=== PATIENT | female | born 1960 | race Caucasian/White ===

== ENCOUNTER 2017-03-18 15:48 | Emergency (ER) | payer OTHER ==
[~2017-03-18] VITALS: Ht 175.3 cm; Wt 70.0 kg
[~2017-03-18 15:48] MED LIST: BUPR-79 PO; BUPR8MIS; BUPR8MIS SL; GABA-113 PO
[2017-03-18 15:51] VITALS: TEMP 36.8; Ht 175.3 cm; Wt 70.0 kg
[2017-03-18] MEDS ORDERED: KETOROLAC TROMETHAMINE 30 MG/ML VIAL IV STA (16:21)
[2017-03-18 16:46] LABS: BASO % 0.1 %; BASO ABS # 0.01 K/uL (0-0.2); COMPLETE YES; EOS % 0.5 %; IG% 0.2 %; LYMPH % 18.2 %; LYMPH ABS # 1.57 K/uL (1.2-3.4); MEAN CELL VOLUME 86.7 fL (80-100); MEAN CORPUSCULAR HEMOGLOBIN 29.8 pg (25-34); MEAN CORPUSCULAR HGB CONC 34.4 g/dl (32-36); MEAN PLATELET VOLUME 8.4 fL (7.4-10.4); MONO % 5.9 %; NEUT % 75.1 %; PLATELET COUNT 227 K/uL (130-400); WHITE BLOOD COUNT 8.65 K/uL (4.8-10.8)
[2017-03-18 17:02] LABS: BUN/CREATININE RATIO 23.6 (10-20); CALCIUM 8.6 mg/dl (8.5-10.1); CREATININE 0.56 mg/dl (0.60-1.20); POTASSIUM 3.6 mmol/L (3.5-5.1)
[2017-03-18 17:12] LABS: INR 0.9 (0.9-1.1); PROTHROMBIN TIME (PATIENT) 10.1 SECONDS (9.0-12.0)
--- NOTE | 2017-03-18 17:21 | DIAGNOSTIC IMAGING REPORT ---
CHEST 2 VIEWS ROUTINE CLINICAL HISTORY: Atypical chest pain COMPARISON STUDY: 08/13/2006 FINDINGS: The heart is mildly enlarged. There is no failure. There is no lobar consolidation. Increased basal markings are likely atelectatic. There is no significant pleural fluid.[ IMPRESSION: 1. Mild cardiomegaly 2. Bibasilar opacities likely atelectatic Electronically signed by: Bk Khanna M.D. 03/18/2017 5:20 PM Dictated Date/Time: 03/18/2017 5:19 PM
[2017-03-18 17:32] LABS: POINT OF CARE TROPONIN I < 0.030 ng/ml (0-0.045)
[2017-03-18 17:33] VITALS: O2SAT 97
[2017-03-18] MEDS ORDERED: AZITHROMYCIN 250 MG TAB PO STA (17:48)
[2017-03-18] MEDS ORDERED: AZIT250T PO (17:50)
[2017-03-18 18:25] VITALS: BP 130/77; PULSE 56; O2SAT 98
--- NOTE | 2017-03-18 21:27 | EMERGENCY ROOM VISIT NOTE ---
History Report prepared by Christiane: Samantha Schultz Under the Supervision of: Dr. Hussain Perea M.D. First contact with patient: 16:13 Chief Complaint: CHEST PAIN Stated Complaint: CHEST PAIN History of Present Illness The patient is a 56 year old female who presents to the Emergency Room with complaints of worsening chest pain beginning this morning at 0700. She states that laying flat exacerbates the pain and that her pain also radiates to her shoulders. She describes the pain as being sharp. The patient also reports feeling shortness of breath and that she has had a productive cough with white mucous for a week now. She states that deep breaths and certain positions make her pain worse as well. She denies having a fever. The patient reports that she has had ECG's and CT scans done, but she does not know if she ever had a stress test done. The patient reports that she has had this intermittent pain over the last 5 to 10 years. The patient reports that she smokes a pack of cigarettes per day. She denies a history of hypertension, but states that her father may have had hypertension. She denies a family history of heart disease. Source of History: patient Onset: 0700 this morning Position: chest Quality: sharp Timing: worsening Modifying Factors (Worsening): breathing, movement, other (laying flat ) Associated Symptoms: + cough (productive with white mucous ), + SOB, No fevers Review of Systems See HPI for pertinent positives & negatives. A total of 10 systems reviewed and were otherwise negative. Past Medical & Surgical Medical Problems: (1) ADV EFF HEROIN (2) DRUG WITHDRAWAL (3) Herniation of nucleus pulposus (4) LUMB/LUMBOSAC DISC DEGEN Family History FH: hypertension Social History Smoking Status: Current Every Day Smoker Alcohol Use: none Marital Status: Occupation Status: unemployed Current/Historical Medications Scheduled Azithromycin (Zithromax), 250 MG PO DAILY Buprenorphine Hcl-Naloxone Hcl (Suboxone 8-2 Mg), 8 MG SL BID Gabapentin (Neurontin), 300 MG PO TID Allergies Coded Allergies: No Known Allergies (Unverified , 03/18/17) Physical Exam Vital Signs Date Time Temp Pulse Resp B/P (MAP) Pulse Ox O2 Delivery O2 Flow Rate FiO2 03/18/17 18:25 56 14 130/77 98 Room Air 03/18/17 17:35 54 03/18/17 17:33 54 16 101/87 97 Room Air 03/18/17 17:33 97 Room Air 03/18/17 17:15 94 Room Air 03/18/17 15:51 36.8 76 18 166/116 96 Room Air Physical Exam Constitutional: Vital signs reviewed. Eyes: Pupils are equal round reactive to light. Conjunctiva are noninjected. ENT: Pharynx is clear without erythema or exudate. Mucous membranes are moist. Neck supple without meningeal signs. Respiratory: Clear to auscultation bilaterally. Breath sounds are equal bilaterally. Cardiovascular: Regular rate and rhythm. No rubs or gallops. GI: Soft, nondistended and nontender. Bowel sounds are present. Musculoskeletal: No peripheral edema. No lower extremity tenderness. Integumentary: No cyanosis. Neurological: The patient is awake and alert. No focal deficits. Psychiatric: Normal affect. Medical Decision & Procedures ER Provider Diagnostic Interpretation: Radiology results as stated below per my review and the radiologist's interpretation: CHEST 2 VIEWS ROUTINE CLINICAL HISTORY: Atypical chest pain COMPARISON STUDY: 08/13/2006 FINDINGS: The heart is mildly enlarged. There is no failure. There is no lobar consolidation. Increased basal markings are likely atelectatic. There is no significant pleural fluid.[ IMPRESSION: 1. Mild cardiomegaly 2. Bibasilar opacities likely atelectatic Electronically signed by: kB Khanna M.D. 03/18/2017 5:20 PM Dictated Date/Time: 03/18/2017 5:19 PM Laboratory Results 03/18/17 16:29 Red Blood Count 4.50, Mean Corpuscular Volume 86.7, Mean Corpuscular Hemoglobin 29.8, Mean Corpuscular Hemoglobin Concent 34.4, Mean Platelet Volume 8.4, Neutrophils (%) (Auto) 75.1, Lymphocytes (%) (Auto) 18.2, Monocytes (%) (Auto) 5.9, Eosinophils (%) (Auto) 0.5, Basophils (%) (Auto) 0.1, Neutrophils # (Auto) 6.50, Lymphocytes # (Auto) 1.57, Monocytes # (Auto) 0.51, Eosinophils # (Auto) 0.04, Basophils # (Auto) 0.01 03/18/17 16:29 Test 03/18/17 16:29 03/18/17 17:14 White Blood Count 8.65 K/uL (4.8-10.8) Red Blood Count 4.50 M/uL (4.2-5.4) Hemoglobin 13.4 g/dL (12.0-16.0) Hematocrit 39.0 % (37-47) Mean Corpuscular Volume 86.7 fL (80-100) Mean Corpuscular Hemoglobin 29.8 pg (25-34) Mean Corpuscular Hemoglobin Concent 34.4 g/dl (32-36) Platelet Count 227 K/uL (130-400) Mean Platelet Volume 8.4 fL (7.4-10.4) Neutrophils (%) (Auto) 75.1 % Lymphocytes (%) (Auto) 18.2 % Monocytes (%) (Auto) 5.9 % Eosinophils (%) (Auto) 0.5 % Basophils (%) (Auto) 0.1 % Neutrophils # (Auto) 6.50 K/uL (1.4-6.5) Lymphocytes # (Auto) 1.57 K/uL (1.2-3.4) Monocytes # (Auto) 0.51 K/uL (0.11-0.59) Eosinophils # (Auto) 0.04 K/uL (0-0.5) Basophils # (Auto) 0.01 K/uL (0-0.2) RDW Standard Deviation 41.9 fL (36.4-46.3) RDW Coefficient of Variation 13.1 % (11.5-14.5) Immature Granulocyte % (Auto) 0.2 % Immature Granulocyte # (Auto) 0.02 K/uL (0.00-0.02) Prothrombin Time 10.1 SECONDS (9.0-12.0) Prothromb Time International Ratio 0.9 (0.9-1.1) Activated Partial Thromboplast Time 26.8 SECONDS (21.0-31.0) Partial Thromboplastin Ratio 1.0 Anion Gap 4.0 mmol/L (3-11) Est Creatinine Clear Calc Drug Dose 117.3 ml/min Estimated GFR () 120.8 Estimated GFR (Non- 104.2 BUN/Creatinine Ratio 23.6 (10-20) Calcium Level 8.6 mg/dl (8.5-10.1) Bedside D-Dimer 344 ng/mlFEU (0-450) Bedside Troponin I < 0.030 ng/ml (0-0.045) Laboratory results as reviewed by me. Medications Administered Medications (Trade) Dose Ordered Sig/Mk Route Start Time Stop Time Status Last Admin Dose Admin Ketorolac Tromethamine (Toradol Inj) 10 mg NOW STAT IV 03/18/17 16:21 03/18/17 16:24 DC 03/18/17 17:32 10 MG Azithromycin (Zithromax Tab) 500 mg NOW STAT PO 03/18/17 17:48 03/18/17 17:49 DC 03/18/17 18:27 500 MG ECG Indication: chest pain Rate (beats per minute): 68 Rhythm: normal sinus Findings: no acute ischemic change, no ectopy ED Course 161: The patient was evaluated in room C6. A complete history and physical exam was performed. 162: Ordered Toradol Inj 10 mg IV. 1745: The patient says she feels better. I discussed the test results with her. She will be treated with antibiotics because of her smoking history and cough. 1748: Ordered Azithromycin 500 mg PO. 1750: Upon reevaluation, the patient appeared to have improvement of her symptoms. I discussed tonight's findings with her. She verbalized agreement of the treatment plan. She was discharged home. Medical Decision This is a 56-year-old female who presents with chest pain. Differential diagnosis includes pleurisy, bronchitis, pneumonia, pulmonary embolism, pericarditis, UT. I did perform a limited focused review of portions of the patient's old chart on the electronic medical record. The patient has had no recent pertinent visits to this hospital. I did evaluate the patient as noted above. Patient is presenting with continual chest pain since 7 AM. She describes it as sharp and worse when she moves or takes deep breaths. It is also worse when she lies back. She has been sick for the past week with a productive cough as well. She is a heavy smoker. IV access was established. 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 I did treat her with Toradol 10 mg IV. I did order and personally review the patient's 12-lead EKG and chest x-ray as described above. Her twelve-lead EKG does not demonstrate any acute ischemic changes. Her chest x-ray did show some bibasilar infiltrates which could be atelectasis versus pneumonia. Given her history of productive cough and pleuritic chest pain I did feel it was worthwhile to treat her. I did treat her with Zithromax. I did order and review the patient's blood work as noted in the electronic medical record. D-dimer and troponin are both negative. I did discuss the test results with the patient. On reevaluation she is feeling better. I did recommend close follow up with her doctor. She was discharged with a prescription for Zithromax and given return instructions as outlined below. Medication Reconcilliation Current Medication List: was personally reviewed by me Blood Pressure Screening Patient's blood pressure: Elevated blood pressure Blood pressure disposition: Referred to PCP Impression Primary Impression: Pneumonia of both lower lobes Additional Impression: Acute chest pain Scribe Attestation The scribe's documentation has been prepared under my direct and personally reviewed by me in its entirety. I confirm that the note above accurately reflects all work, treatment, procedures, and medical decision making performed by me. Departure Information Dispostion Home / Self-Care Prescriptions Azithromycin (Zithromax) 250 Mg Tab 250 MG PO DAILY, #4 TAB Prov: Hussain Perea M.D. 03/18/17 Referrals Ahsan Willson M.D. (PCP) Forms Call Back Authorization, HOME CARE DOCUMENTATION FORM, IMPORTANT VISIT INFORMATION Patient Instructions ED Chest Pain Atypical Unkn Cause, ED Pneumonia Adult, My [facility] Additional Instructions You have been examined and treated today on an emergency basis only. This is not a substitute for, or an effort to provide, complete comprehensive medical care. It is impossible to recognize and treat all injuries or illnesses in a single emergency department visit. It is therefore important that you follow up closely with your physician. Call as soon as possible for an appointment. Return for worsening symptoms or if you develop fever, vomiting, or any other concerning symptoms. Problem Qualifiers Primary Impression: Pneumonia of both lower lobes Pneumonia type: due to unspecified organism Qualified Codes: J18.9 - Pneumonia, unspecified organism
== END 2017-03-18 18:46 | disposition home or self-care (01) ==
LOC: C.EDB 15:49 → C.EDC 18:46
DX: J18.9 Pneumonia, unspecified organism (principal); R07.9 Chest pain, unspecified; F17.200 Nicotine dependence, unspecified, uncomplicated

== ENCOUNTER 2019-04-17 01:12 | Observation (INO) ==
[2019-04-17] MEDS ORDERED: ONDANSETRON INJ 2 MG/ML 2 ML VIAL IV STA (01:28)
[2019-04-17] MEDS ORDERED: MoRPHine SULFATE 4 MG/ML 1 ML CARP\\VIAL IV STA (01:28)
[2019-04-17] MEDS ORDERED: SODIUM CHLORIDE 0.9% 1000ML 1,000 ML IV SCH (01:30)
[2019-04-17 01:41] LABS: Basophils # (auto) 0.04 K/uL (0-0.2); Basophils % (auto) 0.3 %; Eosinophils # (auto) 0.27 K/uL (0-0.5); Eosinophils % (auto) 2.2 %; Hematocrit (blood only) 44.3 % (37-47); Hemoglobin 15.4 g/dL (12.0-16.0); Immature Granulocytes # (auto) 0.02 K/uL (0.00-0.02); Immature Granulocytes % (auto) 0.2 %; Lymphocytes # (auto) 4.34 K/uL (1.2-3.4); Lymphocytes % (auto) 35.1 %; Mean Corpuscular Hemoglobin 30.9 pg (25-34); Mean Corpuscular Hgb Conc 34.8 g/dL (32-36); Mean Corpuscular Volume 88.8 fL (80-100); Mean Platelet Volume 8.3 fL (7.4-10.4); Monocytes # (auto) 0.55 K/uL (0.11-0.59); Monocytes % (auto) 4.4 %; Neutrophils # (auto) 7.15 K/uL (1.4-6.5); Neutrophils % (auto) 57.8 %; Platelet Count 299 K/uL (130-400); RDW Coefficient of Variation 12.9 % (11.5-14.5); RDW Standard Deviation 41.7 fL (36.4-46.3); Red Blood Count 4.99 M/uL (4.2-5.4); White Blood Count 12.37 K/uL (4.8-10.8)
[2019-04-17 02:01] LABS: Alanine Aminotransferase 23 U/L (12-78); Albumin Level 4.3 gm/dl (3.4-5.0); Aspartate Aminotransferase 13 U/L (15-37); Blood Urea Nitrogen 15 mg/dl (7-18); Calcium 9.5 mg/dl (8.5-10.1); Carbon Dioxide 32 mmol/L (21-32); Chloride 101 mmol/L (98-107); Creatinine Clr Calc Pharmacy 81.4 ml/min; Est GFR (African American) 100.2; Est GFR (Non-African American) 86.5; Glucose 109 mg/dl (70-99); Lipase 84 U/L (73-393); Potassium 3.3 mmol/L (3.5-5.1); Sodium 137 mmol/L (136-145)
[2019-04-17 02:06] LABS: Alkaline Phosphatase 134 U/L (45-117); Bilirubin,Total 0.3 mg/dl (0.2-1); Globulin 4.3 gm/dl (2.5-4.0); Total Protein 8.6 gm/dl (6.4-8.2); Troponin I < 0.015 ng/ml (0-0.045)
[2019-04-17] MEDS ORDERED: ONDANSETRON HOME PACK 4MG OD TAB PO ONE (02:52)
[2019-04-17] MEDS ORDERED: PANTOprazole 40 MG TAB PO STA (02:52)
[2019-04-17] MEDS ORDERED: NICOTINE 21 MG/24 HR TDSY TD STA (03:19)
--- NOTE | 2019-04-17 03:40 | Emergency Department Note ---
History of Present Illness General Chief complaint: Chest Pain Stated complaint: CHEST PAINS History of Present Illness Maximum Pain Intensity: 6 This 58-year-old presents to the ER complaining of right upper quadrant pain Location: Right upper quadrant Quality: Achy Severity: Severe Duration: Tonight Timing: Started around 9 PM Context: Symptoms got worse and patient came in Modifying factors: better with nothing; worse with palpation Patient states she said intermittent symptoms in the past. This is severe tonight. She had sausage for dinner. Patient denies back pain, dyspnea, vomiting, diarrhea. Home Medications Home Medications Medication Instructions Recorded Confirmed Type buprenorphine-naloxone [Suboxone] 1 film SUBLINGUAL TID 04/17/19 04/17/19 History gabapentin 900 mg PO BID 04/17/19 04/17/19 History meloxicam 15 mg PO DAILY 04/17/19 04/17/19 History Allergies Allergy/AdvReac Type Severity Reaction Status Date / Time No Known Allergies Allergy Unverified 04/17/19 01:36 Past Med/Surg History Medical History Chronic pain Social History Preferred Language: Portuguese Feels Safe at Home: Yes Smoking Status: Current every day smoker Review of Systems All systems reviewed & are unremarkable except as noted in HPI & below Physical Exam Vital Signs Vital Signs - 24 hr 04/17/19 01:19 04/17/19 01:31 04/17/19 01:33 Temperature 36.7 C Temperature Source Oral Pulse Rate 70 Pulse Rate [Apical] Respiratory Rate 28 H Blood Pressure 199/101 H Blood Pressure [Left Arm] Blood Pressure Mean 133 Blood Pressure Mean [Left Arm] Blood Pressure Position Sitting Blood Pressure Position [Left Arm] Pulse Oximetry 98 99 98 Oxygen Delivery Method Room Air Room Air Room Air Sepsis Recent Fever Within 48 Hours No Sepsis New/Unexplained Change in Mental Status No Sepsis Action Taken by Nursing No Action Required 04/17/19 02:07 04/17/19 03:27 Temperature Temperature Source Pulse Rate Pulse Rate [Apical] 75 73 Respiratory Rate 20 18 Blood Pressure Blood Pressure [Left Arm] 164/100 H 142/87 H Blood Pressure Mean Blood Pressure Mean [Left Arm] 121 105 Blood Pressure Position Blood Pressure Position [Left Arm] Sitting Pulse Oximetry 96 97 Oxygen Delivery Method Room Air Room Air Sepsis Recent Fever Within 48 Hours Sepsis New/Unexplained Change in Mental Status Sepsis Action Taken by Nursing VITALS: Vitals are noted on the nurse's note and reviewed by myself. Vital signs stable. GENERAL: White female screaming in pain, in no acute distress, nondiaphoretic, well-developed well-nourished. SKIN: Capillary reflex less than 2 seconds. HEENT: Normocephalic. PERRLA. EOMI. Nares patent. Mucous membranes moist. Neck is supple without nuchal rigidity. HEART: Regular rate and rhythm LUNGS: Clear to auscultation bilaterally without wheezes, rales or rhonchi. No retractions or accessory muscle use. ABDOMEN: Positive bowel sounds x 4. Normal tympanic percussion. Soft, tender to palpation right upper quadrant, without masses or organomegaly. Canela sign positive. No guarding or rebound tenderness. No CVA tenderness MUSCULOSKELETAL: No gross musculoskeletal defects. NEURO: Patient was alert and oriented to person place and time. Normal sensation to light and sharp touch. No focal neurological deficits. Course Administered Medications Discontinued Medications Sodium Chloride (Nss 1000ml) 1,000 mls @ 999 mls/hr IV .[id number] RAYMOND Stop: 04/17/19 02:30 Last Infusion: 04/17/19 02:36 Dose: 0 mls/hr Documented by: [id number] Admin: 04/17/19 01:35 Dose: 999 mls/hr Documented by: [id number] Morphine Sulfate (Morphine Sulfate) 4 mg IV NOW STA Stop: 04/17/19 01:29 Last Admin: 04/17/19 01:36 Dose: 4 mg Documented by: [id number] Nicotine (Nicoderm Cq) 21 mg TD NOW STA Stop: 04/17/19 03:20 Last Admin: 04/17/19 03:25 Dose: 21 mg Documented by: [id number] Ondansetron HCl (Zofran) 4 mg IV NOW STA Stop: 04/17/19 01:29 Last Admin: 04/17/19 01:35 Dose: 4 mg Documented by: [id number] Ondansetron HCl (Zofran Odt 4mg Home Pack) 1 homepack PO NOW ONE Stop: 04/17/19 02:53 Last Admin: 04/17/19 02:56 Dose: Not Given Documented by: [id number] Pantoprazole Sodium (Protonix) 40 mg PO NOW STA Stop: 04/17/19 02:53 Last Admin: 04/17/19 02:56 Dose: Not Given Documented by: [id number] Medical Decision Making Medical Records Attestation: I reviewed the patient's medical records. Home Medications Current Medication List: was personally reviewed by me Laboratory Data Attestation: I reviewed the patient's lab results. Result diagrams: 04/17/19 01:24 04/17/19 01:24 Lab Results 04/17/19 04/17/19 04/17/19 Range/Units 01:24 01:24 01:29 WBC 12.37 H (4.8-10.8) K/uL RBC 4.99 (4.2-5.4) M/uL Hgb 15.4 (12.0-16.0) g/dL Hct 44.3 (37-47) % MCV 88.8 (80-100) fL MCH 30.9 (25-34) pg MCHC 34.8 (32-36) g/dL RDW Std Deviation 41.7 (36.4-46.3) fL RDW Coeff of Hayley 12.9 (11.5-14.5) % Plt Count 299 (130-400) K/uL MPV 8.3 (7.4-10.4) fL Immature Gran % (Auto) 0.2 % Neut % (Auto) 57.8 % Lymph % (Auto) 35.1 % [place] % (Auto) 4.4 % Eos % (Auto) 2.2 % Baso % (Auto) 0.3 % Immature Gran # (Auto) 0.02 (0.00-0.02) K/uL Neut # (Auto) 7.15 H (1.4-6.5) K/uL Lymph # (Auto) 4.34 H (1.2-3.4) K/uL [place] # (Auto) 0.55 (0.11-0.59) K/uL Eos # (Auto) 0.27 (0-0.5) K/uL Baso # (Auto) 0.04 (0-0.2) K/uL Sodium 137 (136-145) mmol/L Potassium 3.3 L (3.5-5.1) mmol/L Chloride 101 (98-107) mmol/L Carbon Dioxide 32 (21-32) mmol/L Anion Gap 4.0 (3-11) BUN 15 (7-18) mg/dl Creatinine 0.76 (0.6-1.2) mg/dl Est Cr Clr Drug Dosing 81.4 ml/min Est GFR ( Amer) 100.2 Est GFR (Non-Af Amer) 86.5 BUN/Creatinine Ratio 20.0 (10-20) Glucose 109 H (70-99) mg/dl Calcium 9.5 (8.5-10.1) mg/dl Total Bilirubin 0.3 (0.2-1) mg/dl AST 13 L (15-37) U/L ALT 23 (12-78) U/L Alkaline Phosphatase 134 H (45-117) U/L POC Troponin I < 0.03 (0-0.045) ng/ml Troponin I < 0.015 (0-0.045) ng/ml Total Protein 8.6 H (6.4-8.2) gm/dl Albumin 4.3 (3.4-5.0) gm/dl Globulin 4.3 H (2.5-4.0) gm/dl Albumin/Globulin Ratio 1.0 (0.9-2) Lipase 84 (73-393) U/L Imaging Data Attestation: I personally reviewed and interpreted this imaging study as follows: MDM Narrative Prior records/ancillary studies reviewed. Triage Nursing notes reviewed. Additional history obtained from family. The patient's history was concerning for abdominal pain. Differential diagnosis: Etiologies such as appendicitis, diverticulitis, PUD, biliary pathology, UTI, pancreatitis, obstruction, mesenteric ischemia, aortic pathology, infections, inflammatory bowel disease, renal colic, as well as others were entertained. Physical examination findings: As above. ER treatment provided: Morphine, Zofran On reassessment the patient felt better. Diagnostics interpreted by me: ECG: Ordered for upper abdominal pain EKG: Normal sinus, normal intervals, no acute ST-T wave changes. Impression normal sinus rhythm interpreted by myself I think arrhythmia is unlikely. EKG shows normal sinus rhythm with no interval abnormalities such as QT prolongation or WPW. There are no findings to suggest Brugada syndrome. Cardiac monitoring in the emergency department reveals no tachycardic or bradycardic dysrhythmia. Hypertrophic cardiomyopathy was considered but there are no clear historical elements pointing toward this. EKG is not suggestive. The QRS voltage is not extremely large and there are no suggestive Q waves. The labs revealed leukocytosis, negative troponin Imaging studies: US GALLBLADDER: COMPARISON: CT abdomen and pelvis dated 02/15/12 Cholelithiasis. Gallbladder wall is thickened measuring up to 5 mm. Sonographic Canela's sign is positive which may suggest acute cholecystitis. Fatty liver. No biliary dilatation. Right kidney is unremarkable. Radiologist: Maikel Fletcher M.D. Chest x-ray with no acute consolidation, pneumothorax or free air per my interpretation Consultation: A consultation was placed with the surgeon, Dr. Erwin. The case was discussed and diagnostics were reviewed. The patient was evaluated in the ER for further treatment. Exam and history seem consistent with acute cholecystitis. Surgery was consulted. He will evaluate the patient and admit the patient. Patient is admitted to the surgical service for acute cholecystitis. By the evaluation outlined above emergent etiologies such as appendicitis, diverticulitis, PUD, UTI, pancreatitis, obstruction, mesenteric ischemia, aortic pathology, inflammatory bowel disease, renal colic, as well as others were deemed relatively unlikely. The pt informed about the findings as listed above. All questions were answered and pleased with the treatment. Case reviewed with my attending The chart was completed utilizing [employer] Speech voice recognition software. Grammatical errors, random word insertions, pronoun errors, and incomplete sentences are an occassional consequence of this system due to software limitations, ambient noise, and hardware issues. Any formal questions or concerns about the content, text, or information contained within the body of this dictation should be directly addressed to the physician credentialing assistant for clarification. Impression & Plan Acute cholecystitis Discharge Plan Visit Data Chief Complaint: Chest Pain Stated Complaint: CHEST PAINS ED Provider: Sarah Hope ED Midlevel Provider: Flor Cantrell Discharge Problem: Acute cholecystitis Patient Disposition: Being Evaluated by Surgeon Condition: Good Discharge Instructions Interventions: ED Discharge Assessment Last Done: 04/17/19 04:29 Forms Stand Alone Forms: Call Back Authorization, [facility] Prescriptions Prescriptions: No Action gabapentin 600 mg tablet 900 mg PO BID RF: 0 meloxicam 15 mg tablet 15 mg PO DAILY RF: 0 buprenorphine-naloxone [Suboxone] 8-2 mg film 1 film sublingual TID RF: 0 Referrals Referrals: Ahsan Willson III, MD [Primary Care Provider] -
[2019-04-17] MEDS ORDERED: ONDANSETRON INJ 2 MG/ML 2 ML VIAL IV PRN ×2 (03:41→15:20)
--- NOTE | 2019-04-17 03:41 | Surgery Consultation ---
Date of Consultation April 17, 2019 Assessment & Plan (1) Acute cholecystitis due to biliary calculus: pt is a 58 year-old female who presents to ER with 10 hours history RUQ pain, U/S study- acute cholecystitis, cholelithiasis IMP: acute cholecystitis, cholelithiasis Plan, I recommend to admit pt to hospital, IV fluid, antibiotic, NPO, control pain, to do laparoscopic cholecystectomy possible open or cholangiogram today, D/W benefits, risks and alternatives of the surgery, the risks - infection, bleeding, injury CBD, may need ERCP, pt understood, she agrees with the plan, I answered all questions, History of Present Illness History of Present Illness CC: RUQ pain HPI: pt is a 58 year-old female who presents to ER with 10 hours RUQ pain, the pain started last night at 7PM after she ate fat food, some nausea, no vomiting, pt denies fever, no diarrhea, pt has gallstone history in the past, pt had U/S study today diagnosis- acute cholecystitis with cholelithiasis. pt is smoking 0.5 pack/day, otherwise she is health. Allergies Allergy/AdvReac Type Severity Reaction Status Date / Time No Known Allergies Allergy Unverified 04/17/19 01:36 Home Medications Home Medications Medication Instructions Recorded Confirmed Type buprenorphine-naloxone [Suboxone] 1 film SUBLINGUAL TID 04/17/19 04/17/19 History gabapentin 900 mg PO BID 04/17/19 04/17/19 History meloxicam 15 mg PO DAILY 04/17/19 04/17/19 History Patient History Medical History Chronic pain Social History Preferred Language: Djib[place]ian Feels Safe at Home: Yes Smoking Status: Current every day smoker Review of Systems Review of Systems: All systems reviewed & are unremarkable except as noted in HPI & below Constitutional: as per Subjective / HPI Eyes: as per Subjective / HPI Ear, Nose, Mouth, Throat: as per Subjective / HPI Cardiovascular: as per Subjective / HPI Gastrointestinal: gallstone Neurologic: as per Subjective / HPI Psychiatric: as per Subjective / HPI Hematologic / Lymphatic: as per Subjective / HPI Physical Exam Constitutional: WD/WN, vitals as above well developed and well nourished Neck: trachea midline, no thyromegaly Respiratory: normal respiratory effort, lungs clear to auscultation normal respiratory effort Cardiovascular: RRR, no murmur, no edema Rate/Rhythm: regular rate and regular rhythm Heart Sounds: normal S1 and normal S2 Gastrointestinal (Abdomen): Percussion/Palpation: + abdomen tender and abdomen soft tenderness at RUQ, no rebound pain, BS +, no distend Musculoskeletal: no cyanosis or clubbing, extremities motor strength 5/5 Skin: no rashes, warm and dry Neurologic: patellar DTR's 2+ bilat, sensation intact Psychiatric: Orientation: alert and oriented x 3 Lymphatic: no cervical or axillary lymphadenopathy Results & Data Vital Signs (Past 12 Hours) Vital Signs Temp Pulse Pulse Resp BP BP Pulse Ox 04/17/19 02:07 75 20 164/100 H 96 04/17/19 01:33 98 04/17/19 01:31 99 04/17/19 01:19 36.7 C 70 28 H 199/101 H 98 Laboratory Results Abnormal lab results 04/17/19 04/17/19 Range/Units 01:24 01:24 WBC 12.37 H (4.8-10.8) K/uL Neut # (Auto) 7.15 H (1.4-6.5) K/uL Lymph # (Auto) 4.34 H (1.2-3.4) K/uL Potassium 3.3 L (3.5-5.1) mmol/L Glucose 109 H (70-99) mg/dl AST 13 L (15-37) U/L Alkaline Phosphatase 134 H (45-117) U/L Total Protein 8.6 H (6.4-8.2) gm/dl Globulin 4.3 H (2.5-4.0) gm/dl Diagnostic Findings U/S study- acute cholecystitis, cholelithiasis
[2019-04-17] MEDS ORDERED: OXYCODONE/ACETAMINOPHEN 5mg/325mg TAB PO PRN (04:43)
[2019-04-17] MEDS ORDERED: LACTATED RINGER'S 1,000 ML IV SCH (04:43)
[2019-04-17] MEDS ORDERED: HYDROmorphone INJ 0.5 MG/0.5 ML SYR IV PRN (04:43)
--- NOTE | 2019-04-17 07:11 | XRay Report ---
XR chest 1V portable CLINICAL HISTORY: 58 years-old Female presenting with Chest Pain. TECHNIQUE: Portable upright AP view of the chest was obtained. COMPARISON: 03/18/2017. FINDINGS: Atherosclerosis of the aortic arch. Cardiac silhouette mildly enlarged. Pulmonary vascular prominence and mild interstitial prominence primarily at the lung bases. No other focal opacity. No large effus ion or pneumothorax. Osseous structures normal. Upper abdomen normal. IMPRESSION: 1. Mild cardiomegaly with volume overload and early congestive change. No reggie pulmonary edema. Electronically signed by: Emil Naik M.D. 04/17/2019 7:09 AM
--- NOTE | 2019-04-17 07:52 | Ultrasound Report ---
ABDOMINAL ULTRASOUND, RIGHT UPPER QUADRANT HISTORY: Right upper quadrant pain.. COMPARISON: Abdomen and pelvis CT 02/15/2012. FINDINGS: Pancreas: The pancreatic head and tail are obscured by overlying bowel gas. The remaining portions of the pancreas are within normal limits. Liver: The liver is echogenic consistent with fatty change. Gallbladder: The gallbladder is contracted and not well visualized. There are multiple stones filling the gallbladder. Dominant stone measures 1.2 cm. The technologist reported positive sonographic Murp hy sign. The wall appears thickened measuring 5 mm. CBD: 5 mm. Right kidney: No hydronephrosis. IMPRESSION: The gallbladder is not well visualized and appears to be contracted. This contains multiple stones an d mild gallbladder wall thickening. The technologist reported a positive sonographic Canela sign. The refore, these findings are concerning for acute cholecystitis. Clinical correlation recommended. Electronically signed by: Alexis Yang M.D. 04/17/2019 7:50 AM
[2019-04-17] MEDS: MELOXICAM 7.5 MG TAB PO SCH (08:10)
[2019-04-17] MEDS: BUPRENORPHINE/NALOXONE 8/2 MG TAB SL SCH ×3 (08:17→21:45)
[2019-04-17] MEDS ORDERED: GABAPENTIN 300 MG CAP PO SCH (09:00)
--- NOTE | 2019-04-17 14:54 | History & Physical Bridge Note ---
Date of Service April 17, 2019 History & Physical Bridge Note I have examined the patient, reviewed the History & Physical and in the interval since the performance of the History & Physical I have noted the following changes of clinical significance: no changes noted
--- NOTE | 2019-04-17 15:10 | Anesthesiology Consultation ---
Date of Service April 17, 2019 Assessment & Plan (1) Encounter for pre-operative examination: Chart Review Chart Review: Acceptable Risk for Surgery and Patient NOT seen in Pre Admission Testing Consults Requested none History Surgery Operation Date: 04/17/19 08:20 Proposed Procedures p Laparoscopic Cholecystectomy - Andreas Erwin MD Height/Weight Height: 5 ft 8 in Weight: 74.2 kg Allergies Allergy/AdvReac Type Severity Reaction Status Date / Time No Known Allergies Allergy Unverified 04/17/19 01:36 Medications Home Medications Medication Instructions Recorded Confirmed Last Taken buprenorphine-naloxone [Suboxone] 1 film SUBLINGUAL TID 04/17/19 04/17/19 04/16/19 gabapentin 900 mg PO BID 04/17/19 04/17/19 04/16/19 meloxicam 15 mg PO DAILY 04/17/19 04/17/19 04/16/19 Active Medications Generic Name Dose Route Start Last Admin Trade Name Freq PRN Reason Stop Dose Admin Buprenorphine/Naloxone 1 tab 04/17/19 09:00 04/17/19 08:17 Suboxone 8 Mg/2 Mg SL 05/17/19 08:59 1 tab TID RAYMOND Administration Gabapentin 900 mg 04/17/19 09:00 04/17/19 08:11 Neurontin PO 05/17/19 08:59 900 mg BID RAYMOND Administration Lactated Ringer's 1,000 mls @ 80 mls/hr 04/17/19 04:43 04/17/19 06:11 Lr IV 05/17/19 04:42 80 mls/hr .[id number] RAYMOND Administration Cefoxitin Sodium 1,000 mg/ 60 mls @ 100 mls/hr 04/17/19 06:00 04/17/19 13:37 Dextrose IV 04/19/19 05:59 100 mls/hr Q6H RAYMOND Administration Meloxicam 15 mg 04/17/19 09:00 04/17/19 08:10 Mobic PO 05/17/19 08:59 15 mg DAILY RAYMOND Administration NPO Date Last Intake of Fluids: 04/17/19 Time Last Intake of Fluids: 09:00 Last Intake of Fluids Comment: Sips meds Date Last Intake of Solids: 04/16/19 Time Last Intake of Solids: 21:00 Past Medical History Medical History Chronic pain Exercise / Class Metabolic Activity II 4-5 Yardwork/Stairs/Walk up hill Past Surgical History Surgical History History of knee surgery Past Anesthesia History No Hx of Anesthesia Complications and No Family Hx of Anesthesia Complications History of PONV No Hx of PONV and No Hx of Motion Sickness Social History Smoking Status: Current every day smoker tobacco type: cigarettes Smoking cigarettes per day: 1 pack Do You Dip or Chew Tobacco: No Hx Alcohol Use: No Hx Substance Use: No substance use type: former substance user Physical Exam Vital Signs Last Vital Signs Temp 36.7 C 04/17/19 15:00 Pulse 64 04/17/19 15:00 Resp 18 04/17/19 15:00 BP 112/72 04/17/19 15:00 Pulse Ox 100 04/17/19 15:00 Testing Laboratory Results 04/17/19 01:24 04/17/19 01:24
[2019-04-17] MEDS ORDERED: fentaNYL citrate 100 MCG/2 ML VIAL ONE (15:19)
[2019-04-17] MEDS ORDERED: PROPOFOL IV EMULSION 10 MG/ML 20 ML VIAL IV ONE (15:20)
[2019-04-17] MEDS ORDERED: ONDANSETRON INJ 2 MG/ML 2 ML VIAL ONE (15:20)
[2019-04-17] MEDS ORDERED: fentaNYL citrate 100 MCG/2 ML VIAL IV PRN (15:20)
[2019-04-17] MEDS ORDERED: ATROPINE SULFATE 0.1 MG/ML 10ML SYR IV PRN (15:20)
[2019-04-17] MEDS ORDERED: ROCURONIUM BROMIDE 10 MG/ML 5 ML VIAL ONE (15:20)
[2019-04-17] MEDS ORDERED: DEXAMETHASONE SOD INJ 4 MG/ML VIAL ONE ×2 (15:20)
[2019-04-17] MEDS ORDERED: HYDROmorphone INJ 1 MG/ML SYRINGE IV PRN (15:20)
[2019-04-17] MEDS ORDERED: LIDOCAINE HCL 2% 2 ML VIAL/AMP(20MG/ML) INFIL ONE (15:20)
[2019-04-17] MEDS ORDERED: ePHEDrine sulfate 50 MG/ML AMP IV PRN (15:20)
[2019-04-17] MEDS ORDERED: BACITRACIN OINT 15 GM TUBE ONE (15:21)
[2019-04-17] MEDS ORDERED: BUPIVACAINE 0.5 % 5 MG/1 ML MPF 30ML VIAL ONE (15:21)
[2019-04-17] MEDS ORDERED: LIDOCAINE HCL 1% 20 ML VIAL ONE (15:21)
[2019-04-17] MEDS ORDERED: ACETAMINOPHEN 1000 MG/100 ML IV IV ONE (15:47)
[2019-04-17] MEDS ORDERED: NEOSTIGMINE METHYLSULFATE 5 MG/5 ML SYR ONE (16:06)
[2019-04-17] MEDS ORDERED: GLYCOPYRROLATE 0.2 MG/ML VIAL ONE ×2 (16:06→16:36)
--- NOTE | 2019-04-17 16:46 | Post Operative Brief Note ---
Immediate Post Op Note v1 Date of Surgery April 17, 2019 Pre & Post Diagnosis Operation Date: 04/17/19 08:20 Pre-Op Diagnosis: ACUTE CHOLECYSTITIS, cholelithiasis Post-Op Diagnosis: ACUTE CHOLECYSTITIS, cholelithiasis I identified the patient and participated in the time-out.: Yes Procedure Operation Date: 04/17/19 08:20 Actual Procedures p Laparoscopic Cholecystectomy(Not Applicable) - Andreas Erwin MD Surgeon Andreas Erwin MD Trade Show Manager LEELA Herrera Estimated Blood Loss 15 Findings Consistent with Post-Op Diagnosis Fluids 600ml Specimens gallbladder Anesthesia Type General Complications none Disposition Accompanied Patient To Recovery: Yes Disposition: Recovery Room Overlapping Procedure I was immediately available: during the entire case.
--- NOTE | 2019-04-17 17:55 | Anesthesiology Progress Note ---
Date of Service April 17, 2019 Anesthesia Post Procedure Vital Signs Vital Signs: Temp Pulse Pulse Pulse Resp BP BP 04/17/19 17:25 36.8 C 59 L 16 04/17/19 17:15 58 L 16 04/17/19 17:05 58 L 16 04/17/19 16:55 36.7 C 72 15 04/17/19 15:00 36.7 C 64 18 04/17/19 07:02 36.7 C 59 L 16 04/17/19 04:43 36.3 C L 76 18 04/17/19 03:27 73 18 142/87 H 04/17/19 02:07 75 20 164/100 H 04/17/19 01:33 04/17/19 01:31 04/17/19 01:19 36.7 C 70 28 H 199/101 H BP Pulse Ox 04/17/19 17:25 116/63 95 04/17/19 17:15 123/70 98 04/17/19 17:05 116/70 100 04/17/19 16:55 142/76 H 100 04/17/19 15:00 112/72 100 04/17/19 07:02 100/64 92 04/17/19 04:43 154/87 H 95 04/17/19 03:27 97 04/17/19 02:07 96 04/17/19 01:33 98 04/17/19 01:31 99 04/17/19 01:19 98 Pain Intensity Chest: Pain Intensity: 4 Abdomen: Pain Intensity: 5 Transfer of Care Handoff Completed per policy Notes Mental Status: alert / awake / arousable and participated in evaluation Patient Amnestic to Procedure: Yes Nausea / Vomiting: adequately controlled Pain: adequately controlled Airway Patency, RR, SpO2: stable & adequate BP & HR: stable & adequate Hydration State: stable & adequate Anesthetic Complications: no major complications apparent and Pt Satisfied with anesthetic care
--- NOTE | 2019-04-17 18:07 | Operative Report ---
DATE OF OPERATION: 04/17/2019 PREOPERATIVE DIAGNOSES: Acute cholecystitis with cholelithiasis. POSTOPERATIVE DIAGNOSES: Acute cholecystitis with cholelithiasis. OPERATION: Laparoscopic cholecystectomy. SURGEON: Andreas Erwin MD. CARTOON ANIMATOR: Maddy Stout PA-C. ANESTHESIA: General. ESTIMATED BLOOD LOSS: About 15 mL. FINDINGS: Acute cholecystitis with cholelithiasis. COMPLICATIONS: None. INDICATIONS FOR THE PROCEDURE: This is a 58-year-old female who was admitted to the hospital for acute cholecystitis with cholelithiasis. The patient is required to do laparoscopic cholecystectomy, possible open, possible cholangiogram. I did talk to the patient about the benefit, risk, and alternate procedure. I indicated the risks may include but not limited to such as bleeding, infection, injury to common bile duct, bile leak, may need ERCP. The patient understands. She signed informed consent and I answered all questions. DETAILS OF PROCEDURE: We brought the patient to the OR, put the patient in the supine position. The patient received SCD on bilateral legs to prevent DVT. Also, patient received 3.375 g of Zosyn IV for prophylactic antibiotic. The patient received general anesthesia without difficulty. The abdomen was prepped and draped in routine sterile fashion. After timeout, I injected local anesthesia by using 1% lidocaine mixed with 0.5% Marcaine just above the umbilicus. Then, I made a small incision just above the umbilicus, opened fascia and opened peritoneum. Under direct vision, put a Deanna trocar in, connected to CO2 to create pneumoperitoneum, flow rate is 6 liter per minute, pressure not more than 14 mmHg. Once we got a nice pneumoperitoneum, we put the camera in, looked around the abdomen, which shows normal finding on the liver. However, the gallbladder shows acute cholecystitis, gallbladder wall thickening, edema. Once we confirmed the diagnosis of acute cholecystitis, we put another three 5 mm trocars on the right upper quadrant. Once all trocars in, we put a grasper to hold the base of gallbladder, put in the direction to the diaphragm, another grasper to hold the pouch of gallbladder, put lateral to explore the triangle of Calot. Cystic duct was identified and mobilized. I put two 5 mm metal clips on the proximal cystic duct, one on the distal cystic duct and used scissors for transection of cystic duct. Rechecked, no active bleeding, no bile leak. The cystic artery was identified and mobilized. I put two 5 mm metal clips on the proximal cystic artery, one on the distal cystic artery, and used scissors for transection of cystic artery. Rechecked, no active bleeding. Then, we used Bovie to take down gallbladder from the liver bed. Rechecked, no active bleeding, no bile leaking from the liver bed. Then, we removed gallbladder through the catch bag. Then, we reinserted the Deanna trocar in, connected to CO2 to create pneumoperitoneum, again looked around the abdomen, which showed no active bleeding, no bile leak from the liver bed. Then, we removed all trocars under direct vision. No active bleeding from the trocar sites. Pneumoperitoneum was released and closed the umbilical incision fascial layer by using #1 Vicryl [id number] x2, closed subcutaneous layer by using 2-0 Vicryl interruptedly and closed skin by using 4-0 Vicryl continuous running, closed another three 5 mm trocar sites skin only by using 4-0 Vicryl. Then, we put the dressing on. The patient tolerated the procedure well. All instrument, needle and sponge count were correct x2 at the end of the case. The patient was transferred to recovery room in stable condition. Specimen was sent to pathology. I attest to the content of the Intraoperative Record and any orders documented therein. Any exception s are noted below.
[2019-04-17] MEDS: LACTATED RINGER'S 1,000 ML IV SCH (21:51)
[2019-04-18 05:56] LABS: Hematocrit (blood only) 37.6 % (37-47); Hemoglobin 12.8 g/dL (12.0-16.0); Immature Granulocytes # (auto) 0.01 K/uL (0.00-0.02); Immature Granulocytes % (auto) 0.1 %; Lymphocytes # (auto) 1.27 K/uL (1.2-3.4); Lymphocytes % (auto) 16.3 %; Mean Corpuscular Hemoglobin 30.3 pg (25-34); Mean Corpuscular Volume 89.1 fL (80-100); Mean Platelet Volume 8.5 fL (7.4-10.4); Monocytes # (auto) 0.23 K/uL (0.11-0.59); Neutrophils # (auto) 6.27 K/uL (1.4-6.5); Neutrophils % (auto) 80.6 %; Platelet Count 242 K/uL (130-400); RDW Standard Deviation 42.3 fL (36.4-46.3); Red Blood Count 4.22 M/uL (4.2-5.4); White Blood Count 7.78 K/uL (4.8-10.8)
[2019-04-18 06:25] LABS: Albumin Globulin Ratio 0.9 (0.9-2); Albumin Level 3.2 gm/dl (3.4-5.0); BUN Creatinine Ratio 17.4 (10-20); Bilirubin,Total 0.4 mg/dl (0.2-1); Calcium 9.1 mg/dl (8.5-10.1); Creatinine Clr Calc Pharmacy 98.2 ml/min; Est GFR (African American) 114.6; Est GFR (Non-African American) 98.9; Globulin 3.5 gm/dl (2.5-4.0); Potassium 4.3 mmol/L (3.5-5.1); Total Protein 6.7 gm/dl (6.4-8.2)
--- NOTE | 2019-04-18 07:57 | Anesthesiology Progress Note ---
Date of Service April 18, 2019 Anesthesia Post Procedure Vital Signs Vital Signs: Temp Pulse Pulse Pulse Resp BP BP 04/18/19 07:37 36.9 C 50 L 16 131/72 04/18/19 03:31 36.8 C 51 L 15 124/75 04/17/19 23:13 36.8 C 50 L 14 114/70 04/17/19 20:42 36.5 C 54 L 16 101/64 04/17/19 19:45 36.4 C L 50 L 15 126/67 04/17/19 18:49 17 106/66 04/17/19 18:04 36.5 C 50 L 14 120/74 04/17/19 17:40 36.9 C 54 L 14 121/77 04/17/19 17:25 36.8 C 59 L 16 116/63 04/17/19 17:15 58 L 16 123/70 04/17/19 17:05 58 L 16 116/70 04/17/19 16:55 36.7 C 72 15 142/76 H 04/17/19 15:00 36.7 C 64 18 112/72 Pulse Ox 04/18/19 07:37 95 04/18/19 03:31 94 04/17/19 23:13 91 04/17/19 20:42 95 04/17/19 19:45 99 04/17/19 18:49 99 04/17/19 18:04 100 04/17/19 17:40 96 04/17/19 17:25 95 04/17/19 17:15 98 04/17/19 17:05 100 04/17/19 16:55 100 04/17/19 15:00 100 Pain Intensity Chest: Pain Intensity: 2 Abdomen: Pain Intensity: 2 Transfer of Care Handoff Completed per policy Notes Mental Status: alert / awake / arousable and participated in evaluation Patient Amnestic to Procedure: Yes Nausea / Vomiting: adequately controlled Pain: adequately controlled (improving with walking) Airway Patency, RR, SpO2: stable & adequate BP & HR: stable & adequate Hydration State: stable & adequate Anesthetic Complications: no major complications apparent and Pt Satisfied with anesthetic care
[2019-04-18] MEDS: MELOXICAM 7.5 MG TAB PO SCH (08:10)
[2019-04-18] MEDS: BUPRENORPHINE/NALOXONE 8/2 MG TAB SL SCH (08:45)
[2019-04-18] MEDS ORDERED: NICOTINE 21 MG/24 HR TDSY TD SCH (09:00)
[2019-04-18] MEDS: LACTATED RINGER'S 1,000 ML IV SCH (09:22)
--- NOTE | 2019-04-18 14:15 | Discharge Summary ---
ADMITTING DIAGNOSIS: Acute cholecystitis, cholelithiasis. DISCHARGE DIAGNOSIS: Same. OPERATION: Laparoscopic cholecystectomy. SURGEON: Andreas Erwin M.D. DETAILS OF DISCHARGE SUMMARY: The patient was admitted to hospital for acute cholecystitis with cholelithiasis. We took the patient to the OR. We did a laparoscopic cholecystectomy. The patient tolerated the procedure well and after procedure the patient transferred to recovery room and later on transferred to regular floor. The patient is doing fine. No significant abdominal pain. The patient tolerated a regular diet. No nausea, no vomiting. PHYSICAL EXAMINATION: VITAL SIGNS: Temperature is 36.9. The respiratory rate 16, heart rate 50, blood pressure 131/72, O2 saturation 95% on room air. GENERAL: The patient is alert, awake, oriented x3. HEENT: With normal limitation. NEUROLOGIC: Intact. NECK: No JVD. CHEST: Bilateral lung sounds clear. HEART: Normal S1, S2, no murmur. ABDOMEN: Soft, no significant tenderness. All incisions intact. No redness, no drainage. ABDOMEN: No distention. Bowel sounds positive. EXTREMITIES: No edema. PLAN: The patient wanted to go home today. We gave the patient postop care instruction. The patient understands. I will follow the patient in 2 weeks.
== END 2019-04-18 13:51 | disposition home or self-care (01) ==
LOC: 3E 01:12 → ED 01:12 → 3E 04:29

== ENCOUNTER 2022-08-21 08:24 | Observation (INO) ==
--- NOTE | 2022-08-14 08:34 | Anesthesiology Consultation ---
Date of Service August 14, 2022 Assessment & Plan (1) Encounter for pre-operative examination: - Outpatient joint assessment: Patient is currently scheduled for inpatient pathway. If re-evaluated pending system levels during current pandemic/surgeon requests outpatient pathway, patient is not recommended candidate for outpatient joint program from anesthesia standpoint. - COVID screening: Per traffic control officer on 08/14/2022: Travel screen negative, no known COVID-19 positive contacts or current COVID-19 related symptoms in past 2 weeks. To surgeon's discretion if preop COVID testing is needed. Chart Review Chart Review: Acceptable Risk for Surgery and Patient NOT seen in Pre Admission Testing History Surgery Operation Date: 08/21/22 10:40 Proposed Procedures p Left Total Knee Arthroplasty - Hector Hurt MD Height/Weight Height: 5 ft 8 in Weight: 79.379 kg Allergies Allergy/AdvReac Type Severity Reaction Status Date / Time No Known Allergies Allergy Verified 08/14/22 07:32 Medications Home Medications Medication Instructions Recorded Confirmed Last Taken buprenorphine 8 mg-naloxone 2 mg 1 film sublingual TID 04/17/19 08/14/22 03/17/21 sublingual film (Suboxone) gabapentin 600 mg tablet 600 mg PO TID #270 tabs 04/06/22 08/14/22 Unknown meloxicam 15 mg tablet 15 mg PO QAM #30 tabs 05/25/22 08/14/22 Unknown Amino Acid Synergy 3 cap PO BID 08/14/22 08/14/22 Unknown acetaminophen 500 mg tablet 1,000 mg PO Q6H PRN Pain 08/14/22 08/14/22 Unknown aspirin 81 mg capsule 81 mg PO QAM 08/14/22 08/14/22 Unknown Past Medical History Medical History Chronic pain Chronic pain of left knee History of anxiety Hx of chest pain "get it 2-3 times per year, found to be from anxiety" Hx of drug abuse per medical record-prescription pain killers following surgery; stopped using 4 years ago Pneumonia of both lower lobes 04/2022, not hospitalized; resolved. Tobacco use 1 pack per day Past Family History Family History Mother Hypertension Father Hypertension Other No family history of adverse response to anesthesia Denies family history of Ovarian cancer Breast cancer Colorectal cancer Past Surgical History Surgical History (Updated 08/14/22 @ 08:32 by Mari Raygoza PA-C) History of arthroscopic knee surgery BL History of laparoscopic cholecystectomy 04/17/19 Grade 1 view, MAC 3, ETT 7. History of removal of cyst NECK, FOREHEAD Social History Smoking Status: Current every day smoker tobacco type: cigarettes Smoking cigarettes per day: 20 Do You Dip or Chew Tobacco: No Hx Alcohol Use: No Hx Substance Use: Yes substance use type: does not use, former substance user and prescription drug Substance Use Type Other:: prescription pain killers following sx. Last Used Substance Other:: per medical record-stopped 4 years ago Lab Results Anesthesia Preop Results Results Anesthesia Widget: WBC 5.35 K/ul (4.8-10.8) 07/17/22 Hgb 13.4 g/dl (12.0-16.0) 07/17/22 Hct 39.5 % (37.0-47.0) 07/17/22 Plt 264 K/uL (130-400) 07/17/22 Na 136 mmol/L (136-145) 07/17/22 K 3.7 mmol/L (3.5-5.1) 07/17/22 Cl 103 mmol/L (98-107) 07/17/22 CO2 30 mmol/L (21-32) 07/17/22 BUN 14 mg/dl (6-23) 07/17/22 Creat 0.69 mg/dl (0.6-1.2) 07/17/22 Glucose Level 108 mg/dl (70-99(Fasting)) H 07/17/22 PT 10.7 Seconds (9.0-12.0) 07/17/22 PTT 27.9 Seconds (21.0-31.0) 07/17/22 INR 1.0 (0.9-1.1) 07/17/22 Testing Electrocardiogram Date: 07/17/22 NSR, rate 69 bpm Chest X-Ray Date: 07/17/22 *1view* The cardiac silhouette remains mildly enlarged. There are few bibasilar linear densities favoring subsegmental atelectasis or scarring. This has improved. No new focal lung consolidations to suggest a pneumonia. No evidence for pulmonary edema. IMPRESSION: No acute process within the chest. Other Testing Chest CTA 03/03/22 1. No evidence for pulmonary embolus with limitations as described above. 2. Patchy and linear bibasilar densities. This is also mild bronchial wall thickening within the bilateral lower lobes and a few opacified distal lower lobe bronchi. Therefore, this could be due to atelectasis or a low-grade pneumonitis. 3. Mild cardiomegaly and a trace pericardial effusion.
[~2022-08-21 08:24] MED LIST changes: +ACETAMINOPHEN 500 MG TAB PO SCH; +BUPIVACAINE 0.5 % 5 MG/1 ML PF 10ML VIAL ONE; +BUPIVACAINE LIPOSOME/PF 266 MG, BUPIVACAINE/EPINEPHRINE 50 ML, SODIUM CHLORIDE 0.9% PF ... INFIL SCH; -BUPR-79 PO; -BUPR8MIS; -BUPR8MIS SL; +CeleBREX 200 MG CAP PO SCH; +EPINEPHrine INJ 1 MG/ML AMP ONE; +FAMOTIDINE 20 MG TAB PO SCH; -GABA-113 PO; +LR 500ML BOLUS, THEN 15ML/HR IV SCH; +LR 60ML/HR IV SCH; +METOCLOPRAMIDE HCL 10 MG TABLET PO SCH; +ROPIVACAINE 0.5% 5 MG/ML 30 ML VIAL ONE; +Scopolamine 1 MG TDSY TD SCH; +TRANEXAMIC ACID 1,000 MG **IV Intra-op IV SCH; +ceFAZolin 2000MG 2,000 MG/15 ML SYR IV SCH; +dexAMETHasone**PF** 10 MG/ML VIAL IV SCH
--- NOTE | 2022-08-21 09:02 | History & Physical Bridge Note ---
Date of Service August 21, 2022 History & Physical Bridge Note I have examined the patient, reviewed the History & Physical and in the interval since the performance of the History & Physical I have noted the following changes of clinical significance: no changes noted
[2022-08-21] MEDS ORDERED: PROPOFOL IV EMULSION 10 MG/ML 20 ML VIAL IV ONE (09:25)
[2022-08-21] MEDS ORDERED: MIDAZOLAM HCL 1 MG/ML 2ML VIAL ONE ×3 (09:25→13:05)
[2022-08-21] MEDS ORDERED: fentaNYL citrate PF 100 MCG/2 ML VIAL ONE (09:25)
[2022-08-21] MEDS ORDERED: ePHEDrine sulfate 50 MG/ML AMP IV PRN (10:33)
[2022-08-21] MEDS ORDERED: ATROPINE SULFATE 0.1 MG/ML 10ML SYR IV PRN (10:33)
[2022-08-21] MEDS ORDERED: BUPIVACAINE/EPINEPHRINE 0.25% 1:200,000 30 ML VIAL ONE (11:10)
[2022-08-21] MEDS ORDERED: BUPIVACAINE LIPOSOME 1.3% 266 MG/20 ML VIAL ONE (11:10)
[2022-08-21] MEDS ORDERED: SODIUM CHLORIDE 0.9% PF 50 ML VIAL ONE (11:10)
[2022-08-21] MEDS ORDERED: KETOROLAC 30 MG/ML VIAL ONE (11:54)
[2022-08-21] MEDS ORDERED: DEXAMETHASONE SOD INJ 4 MG/ML VIAL ONE (11:54)
--- NOTE | 2022-08-21 13:43 | Operative Report ---
PG Post Operative Report Pre & Post Diagnosis Operation Date: 08/21/22 10:40 Pre-Op Diagnosis: Left Knee Degenerative Joint Disease Post-Op Diagnosis: Left Knee Degenerative Joint Disease I identified the patient and participated in the time-out.: Yes Procedure Operation Date: 08/21/22 10:40 Actual Procedures p Left Total Knee Arthroplasty(Left) - Hector Hurt MD Surgeon Hector Hurt MD Glass Ribbon Machine Operator Jaiden Clakre PA-C Estimated Blood Loss 50 Findings Consistent with Post-Op Diagnosis Operative findings revealed extremely stiff knee. She had about a 20 degree flexion contracture and could only bend about 60 degrees preoperatively. Intraoperatively as she had extensive grade 4 [id number] disease in all 3 compartments most severe medially. She had extensive bone formation medially and a fixed varus deformity to her knee. She had a chronic ACL deficiency. Osteophytes in all 3 compartments. Of note, her bone where she was not putting a lot of weight, specifically the patella and the lateral compartment were extremely soft. Specimens Left knee sent for pathology Anesthesia Type Spinal MAC Complications none Disposition Accompanied Patient To Recovery: No Indications Patient is 61-year-old female is had a long history of left knee pain discomfort and progressive arthritis in her knee. She been to extensive conservative treatment occluding arthroscopy in the past as well as multiple injections. She was actually scheduled for surgery a year ago but canceled due to social issues. She is now elected proceed with total knee arthroplasty. She got severe disease. As she had a very stiff knee preoperatively. Description of Procedure Operative implants consist of: 1 Biomet size 67.5 left posterior stabilized femoral component. 2. Biomet size 71 tibial tray with an 80 x 12.5 mm stem 3. 10 mm posterior stabilized polyethylene insert. 4. 34 x 8 and half all Paller patella. The patient was taken the operating, identified, and placed on the operating table supine position protectors were properly padded. IV antibiotics tried by anesthesia team. A spinal anesthetic and abductor canal block had provided in the holding area. Cervantes catheter was placed in sterile fashion. A left thigh tourniquet was then placed in left lower extremities then prepped and draped in usual sterile fashion. Left leg was elevated exsanguinated with use of an Esmarch in terms playset 300 mmHg. An anterior approach the left knee was then performed to longitudinal incision centered over the patella. Sharp dissection was carried through sub cutaneous tissue down the extensor mechanism. A medial parapatellar arthrotomy incision was made. Some subperiosteal dissection was carried out medially. The fat pad was dissected from Neath patella tendon. Lateral patellofemoral ligament was released. Patella subluxated laterally and the knee was flexed. The osteophytes taken off the distal femur. The ACL was absent. The PCL was released from distal femur and the tibia subluxated anteriorly. I did do a extremely extensive medial and posterior medial exposure due to her fixed varus deformity with flexion contracture. The tibial eminence was then resected. The intramedullary guide was placed down the canal and the tibial cutting guide was placed on the intramedullary guide. The tibial cut was made removed but 10 mm of bone from the lateral side. The tibia was then sized to a size 71. It was prepared for a 71 tray with a 12.5 mm x 80 mm cemented stem. We did ream for this. The trial implant was assembled and placed and fit nicely. Attention drawn the femur. The distal femur was entered with a sharp drop with intramedullary canal was suction. A left 5 degree valgus cutting guide was placed. Distal femoral cutting block was pinned in place. Distal femoral cut was made to take an additional 3 mm of bone off distal femur. The femur was then sized to a size 67.5. I did downsize this almost an entire size due to the tight nature of her flexion space. The AP cutting block was pinned parallel to the epicondylar axis which was 5 degrees of external rotation. Anterior cut, anterior chamfer, posterior cut, posterior chamfer cuts were made. The box cutting guide was placed in just slight lateral and the box cut was made. The knee was flexed. The remnants of the medial lateral menisci were excised. The osteophytes taken off the posterior aspect the femur. A trial femoral component was placed. The knee was then trialed and the 10 mm insert fit most appropriately. Attention drawn the patella. The patella was cleaned of all soft tissue. Patella was extremely soft. Thickness measured 25 mm in thickness was cut down to 15. I did this leave a little thick due to the very soft nature and concern for stress fracture. It was sized to a size 34 patella. The lug holes were drilled for 34 patella. The lateral osteophytes removed. Patella button was placed. Knee was taken through range of motion and the patella tracked nicely with no thumbs test. Attention drawn to placing permanent components. Nupathe all trial components were removed. Bone plug was placed in the distal femur limit blood loss. Double batch Palacos G cement was mixed. A Biomet Vanguard size 67.5 left posterior stabilized femoral component, size 71 tibial tray with a cemented stem, a 10 mm posterior stabilized polyethylene insert, and a 34 x 8 and half all Paller patella then cemented in place. Knee was brought into full extension till cement hardened. Final cement check was then performed. Pericapsular t issues were injected with total 100 cc of combination of 20 cc of Exparel, 30 cc normal saline, 50 cc of quarter percent Marcaine with epinephrine. The tourniquet was then let down for final tourniquet time 71 minutes. Hemostasis assured with electrocautery. The wounds once again irrigated. Extensor mechanism then closed with combination 1 PDS suture #1 Vicryl suture in [id number] fashion. Extensor mechanism checked found to be intact with subcutaneous tissue then closed with 2 Dexon suture in buried interrupted fashion skin was closed skin ignacio. Leg was then cleaned and dried and sterile dressed with Xeroform, 4 fours, sterile cast padding, Migue bandage were applied. The patient then transferred to the recovery room in stable condition. Patient tolerated procedure well and there were no complications. Jaiden Clarke, my physician machine operator assistant, was present for the entire procedure. His assistance was essential and required for appropriate patient positioning, prepping and draping, surgical exposure, performing the technical details of the operation, placement the implants, closure of the wound, and placement of the sterile bandage. I attest to the content of the Intraoperative Record and any orders documented therein. Any exceptions are noted below.
--- NOTE | 2022-08-21 13:52 | XRay Report ---
XR knee LT 1 or 2V routine HISTORY: 61 years-old Female Surgical Post Op left knee arthroplasty COMPARISON: 2022 TECHNIQUE: 2 views of the left knee FINDINGS: Total joint arthroplasty with patellar resurfacing. Anterior midline skin ignacio are present with ex pected postoperative soft tissue swelling and deep tissue air. No acute fracture, dislocation or unex pected opaque foreign body. IMPRESSION: Total joint arthroplasty and patella resurfacing with expected postoperative changes. ACT 112: Negative or not required by law. The above report was generated using voice recognition software. It may contain grammatical, syntax o r spelling errors. Electronically signed by: Luis Barnes M.D. 08/21/2022 1:51 PM
[2022-08-21] MEDS ORDERED: ALUMINUM/MAGNESIUM SUSP 30 ML UDC PO PRN (14:26)
[2022-08-21] MEDS ORDERED: METOCLOPRAMIDE HCL INJ 5 MG/ML 2 ML VIAL IV PRN (14:26)
[2022-08-21] MEDS ORDERED: HYDROmorphone INJ 0.5 MG/0.5 ML SYR IV PRN (14:26)
[2022-08-21] MEDS ORDERED: bisacodyL 10 MG SUPP PR PRN (14:26)
[2022-08-21] MEDS ORDERED: ONDANSETRON INJ 2 MG/ML 2 ML VIAL IV PRN (14:26)
[2022-08-21] MEDS ORDERED: MAGNESIUM HYDROXIDE SUSP 30 ML UDC PO PRN (14:26)
[2022-08-21] MEDS ORDERED: NALOXONE HCL 0.4 MG/1 ML VIAL/CARP IV PRN (14:26)
[2022-08-21] MEDS ORDERED: diphenhydrAMINE Capsule 25 MG CAP PO PRN (14:26)
[2022-08-21] MEDS ORDERED: HYDROmorphone HCL 2 MG TAB PO PRN (14:26)
[2022-08-21] MEDS ORDERED: GABAPENTIN 600 MG TAB PO PRN (14:26)
--- NOTE | 2022-08-21 14:38 | Anesthesiology Progress Note ---
Date of Service August 21, 2022 Anesthesia Post Procedure Vital Signs Vital Signs: Temp Pulse Pulse Resp BP Pulse Ox O2 Del Method 08/21/22 14:20 36.5 C 78 16 102/68 98 Room Air 08/21/22 14:10 36.6 C 68 13 108/77 94 Room Air 08/21/22 14:00 36.6 C 67 14 112/79 96 Room Air 08/21/22 13:50 65 18 111/83 100 Oxymask 08/21/22 13:40 69 16 105/74 100 Oxymask 08/21/22 13:31 36.3 C L 80 14 120/86 98 Oxymask 08/21/22 08:55 36.9 C 69 18 184/95 H 98 Room Air O2 Flow Rate 08/21/22 14:20 08/21/22 14:10 08/21/22 14:00 08/21/22 13:50 5 08/21/22 13:40 7 08/21/22 13:31 7 08/21/22 08:55 Transfer of Care Handoff Completed per policy Notes Mental Status: alert / awake / arousable Patient Amnestic to Procedure: Yes Nausea / Vomiting: adequately controlled Pain: adequately controlled Airway Patency, RR, SpO2: stable & adequate BP & HR: stable & adequate Hydration State: stable & adequate Neuraxial Anesthesia: was administered and sensory block is resolving Anesthetic Complications: no major complications apparent
[2022-08-21] MEDS: BUPRENORPHINE/NALOXONE 8/2 MG TAB SL SCH ×3 (15:46→20:23)
[2022-08-21] MEDS: ACETAMINOPHEN 500 MG TAB PO SCH ×2 (15:46→22:37)
[2022-08-21] MEDS: SODIUM CHLORIDE 0.9% 1000ML 1,000 ML IV SCH (15:47)
[2022-08-21] MEDS: Scopolamine CHECK PATCH PLACEMENT SCH (15:47)
[2022-08-21] MEDS: KETOROLAC 30 MG/ML VIAL IV SCH ×2 (15:47→22:38)
[2022-08-21] MEDS: ASCORBIC ACID 500 MG TAB PO SCH (17:54)
[2022-08-21] MEDS ORDERED: TRANEXAMIC ACID / 0.7% NACL 1,000 MG/100 ML BAG IV SCH (19:30)
[2022-08-21] MEDS: ceFAZolin 1000MG 1,000 MG/7.5 ML SYR IV SCH (20:09)
[2022-08-21] MEDS: DOCUSATE SODIUM 100 MG CAP PO SCH (20:10)
[2022-08-21] MEDS ORDERED: oxyCODONE HCL IR 5 MG TAB (IMMEDIATE RELEASE) PO PRN (20:10)
[2022-08-21] MEDS: DOCUSATE SODIUM/SENNA 50/8.6MG TAB PO SCH (20:11)
[2022-08-21] MEDS: ASPIRIN 81 MG ECTAB PO SCH (20:12)
--- NOTE | 2022-08-21 20:19 | Pain Management Consultation ---
Date of Consultation August 21, 2022 Assessment & Plan (1) History of drug abuse: (2) Osteoarthritis of left knee: Plan 1. Recommend ongoing utilization of chronic Suboxone dosing (8/2mg) 3 times daily. Patient already has a pain and in place for postoperative pain control with her Suboxone physician. 2. Recommend utilization of oxycodone immediate release 5 to 10 mg p.o. every 4 as needed pain if Tylenol is not able to control her pain to a tolerable degree. We discussed that an appropriate pain control score postoperatively would be 4- 5 out of 10. 3. She will plan to utilize her as needed medication 30 minutes prior to physical therapy. Patient expresses understanding. 4. Thank you very much for this consultation please call if you have any questions pain management will sign off. History of Present Illness Attending Physician: Hector Hurt MD History of Present Illness 61-year-old female who underwent a left total knee replacement today by Dr. Hurt. She is a patient of [facility] having had issues with prescription opiates following surgery 4 years ago she has been on sustained Suboxone 8/2mg tablets sublingually 3 times daily with good effect. Her Suboxone physician is aware that she had surgery today and provided her with 16 tablets of oxycodone immediate release 10 mg for postoperative pain. She reports that pain is currently 4-5 out of 10 deep aching cramping. She reports her subarachnoid block has completely resolved and is able to move both limbs without difficulty. She still has some benefit from her abductor canal block from anesthesia and Exparel administration via Dr. Hurt. She has been ut ilizing Tylenol with good effect. She reports that she has a plan in place postoperatively with her Suboxone physician. Last Suboxone dosing was today around 3 PM. She denies any other constitutional complaints at today's visit. Pain Assessment Full Body Front + Back: 1. Allergies Allergy/AdvReac Type Severity Reaction Status Date / Time No Known Allergies Allergy Verified 08/21/22 08:48 Home Medications Medication Instructions Recorded Confirmed Type buprenorphine 8 mg-naloxone 2 mg 1 film sublingual TID 04/17/19 08/21/22 History sublingual film (Suboxone) meloxicam 15 mg tablet 15 mg PO QAM #30 tabs 05/25/22 08/21/22 Rx Amino Acid Synergy 3 cap PO BID 08/14/22 08/21/22 History acetaminophen 500 mg tablet 1,000 mg PO Q6H PRN Pain 08/14/22 08/21/22 History aspirin 81 mg capsule 81 mg PO QAM 08/14/22 08/21/22 History acetaminophen 500 mg capsule 1,000 mg PO TID Pain 30 days #180 08/19/22 08/21/22 Rx caps aspirin 81 mg tablet,delayed 81 mg PO BID 45 days #90 tabs 08/19/22 08/21/22 Rx release (Nick Low Dose Aspirin) cefadroxil 500 mg capsule 500 mg PO BID 7 days #14 caps 08/19/22 08/21/22 Rx hydromorphone 2 mg tablet 2 - 4 mg PO Q6 PRN pain #40 tabs 08/19/22 08/21/22 Rx ketorolac 10 mg tablet 10 mg PO Q6 Pain 5 days #20 tabs 08/19/22 08/21/22 Rx ondansetron HCl 4 mg tablet 4 mg PO Q6 PRN nausea #20 tabs 08/19/22 08/21/22 Rx sennosides 8.6 mg-docusate sodium 1 tab-cap PO BID 14 days #28 tabs 08/19/22 08/21/22 Rx 50 mg tablet (Senokot-S) gabapentin 600 mg tablet 600 mg PO TID PRN Pain 08/21/22 08/21/22 History Patient History Medical History Chronic pain Chronic pain of left knee History of anxiety Hx of chest pain "get it 2-3 times per year, found to be from anxiety" Hx of drug abuse per medical record-prescription pain killers following surgery; stopped using 4 years ago Pneumonia of both lower lobes 04/2022, not hospitalized; resolved. Tobacco use 1 pack per day Surgical History History of arthroscopic knee surgery BL History of laparoscopic cholecystectomy 04/17/19 Grade 1 view, MAC 3, ETT 7. History of removal of cyst NECK, FOREHEAD Family History Mother Hypertension Father Hypertension Other No family history of adverse response to anesthesia Denies family history of Ovarian cancer Breast cancer Colorectal cancer Social History Smoking Status: Current every day smoker Tobacco Type: Cigarettes Cigarettes Per Day: 20; Second Hand Exposure: No; Do You Dip or Chew Tobacco: No; Tobacco Cessation Education Requested by Patient: No Hx Alcohol Use: No Hx Substance Use: Yes Last Used Substance Other:: per medical record-stopped 4 years ago Substance Use Type Other:: prescription pain killers following sx. Preferred Language: Vietnamese Communication Ability: Effective Visual Impairment: No Limitations Hearing Ability: Normal Insert Cutter Required: No Beliefs That Will Affect Care: None marital status: Current Living Situation: Alone current occupational status: employed Other Information That Helps Us Care for You: No Feels Safe at Home: Yes Safety Concerns: Feels Safe At This Time Childhood Exposure to Second-Hand Smoke: Yes caffeine: Yes Dental Care, Regularly: No Physical Activity Frequency: Daily Seatbelt Use: always Assistive Devices: Denture - Upper Physical Exam Constitutional: WD/WN, vitals as above well developed and well nourished; no acute distress Eyes: PERRL, conjunctivae normal, anicteric sclerae ENMT: external ear and nose normal, oropharynx normal Neck: normal visual inspection Respiratory: normal respiratory effort; no respiratory distress Musculoskeletal: no cyanosis or clubbing, extremities motor strength 5/5 Extremities: + extremities abnormal to inspection (Status post left TKA dressing clean dry and intact with ice pack in place.)
[2022-08-21] MEDS: oxyCODONE HCL IR 5 MG TAB (IMMEDIATE RELEASE) PO PRN (20:22)
[2022-08-21] MEDS ORDERED: SENNA 8.6 MG TAB PO SCH (21:00)
[2022-08-21] MEDS ORDERED: AMINO ACID SYNERGY PO SCH (21:00)
[2022-08-22] MEDS: Scopolamine CHECK PATCH PLACEMENT SCH ×2 (00:51→08:34)
[2022-08-22] MEDS: oxyCODONE HCL IR 5 MG TAB (IMMEDIATE RELEASE) PO PRN ×4 (01:16→14:29)
[2022-08-22] MEDS: SODIUM CHLORIDE 0.9% 1000ML 1,000 ML IV SCH (01:48)
[2022-08-22] MEDS: ceFAZolin 1000MG 1,000 MG/7.5 ML SYR IV SCH (03:18)
[2022-08-22] MEDS: KETOROLAC 30 MG/ML VIAL IV SCH ×2 (04:58→08:35)
[2022-08-22] MEDS: ACETAMINOPHEN 500 MG TAB PO SCH (04:58)
[2022-08-22 06:08] LABS: Hematocrit (blood only) 33.5 % (37.0-47.0); Hemoglobin 11.5 g/dl (12.0-16.0); Mean Corpuscular Hemoglobin 29.9 pg (25.0-34.0); Mean Corpuscular Hgb Conc 34.3 g/dL (32.0-36.0); Mean Platelet Volume 8.4 fL (9.4-12.4); Platelet Count 269 K/uL (130-400); RDW Coefficient of Variation 13.1 % (11.5-14.5); RDW Standard Deviation 41.5 fL (36.4-46.3); Red Blood Count 3.85 M/uL (4.20-5.40); White Blood Count 15.76 K/ul (4.8-10.8)
[2022-08-22 06:39] LABS: Calcium 8.8 mg/dl (8.6-10.3); Creatinine Clr Calc Pharmacy 108.5 ml/min; Est GFR (Non-African American) 98.4 ml/min; Potassium 3.9 mmol/L (3.5-5.1)
[2022-08-22] MEDS ORDERED: dexAMETHasone 10 MG in SYRINGE 0 ML IV SCH (08:00)
[2022-08-22] MEDS: ASPIRIN 81 MG ECTAB PO SCH (08:32)
[2022-08-22] MEDS: ASCORBIC ACID 500 MG TAB PO SCH (08:32)
[2022-08-22] MEDS: DOCUSATE SODIUM/SENNA 50/8.6MG TAB PO SCH (08:32)
[2022-08-22] MEDS: DOCUSATE SODIUM 100 MG CAP PO SCH (08:33)
[2022-08-22] MEDS: BUPRENORPHINE/NALOXONE 8/2 MG TAB SL SCH (08:37)
[2022-08-22] MEDS ORDERED: MULTIVITAMIN TAB PO SCH (09:00)
--- NOTE | 2022-08-22 14:53 | Progress Notes ---
DATE OF NOTE: 08/22/2022 SUBJECTIVE: A 61-year-old white female postoperative day 1 from left knee replacement. She is doing quite well. She is anxious to get home. Pain is controlled. No chest pain or shortness of breath. Not feeling dizzy or lightheaded. OBJECTIVE: VITAL SIGNS: Temperature is 36.5. Vital signs are stable. GENERAL: Shows a pleasant middle-aged female. She is sitting in bed, and looks pretty comfortable. LUNGS: Clear to auscultation. HEART: Regular rate and rhythm. ABDOMEN: Soft, nontender, nondistended. EXTREMITIES: Grossly neurovascularly intact except as follows. Examination of the left leg reveals the dressing to be in place. There is a little bit of bloody janes inage around the unger area. She can do a straight leg raise. She can dorsiflex and plantarflex her foot appropriately. She is neurologically intact. LABORATORY DATA: Hemoglobin 11.5. Hematocrit 33.5. Electrolytes are stable. ASSESSMENT: A 61-year-old white female postoperative day 1 from left knee replacement, doing pretty well. Pain is controlled. She is neurologically intact. She is hoping to go home. PLAN: 1. DVT prophylaxis includes thigh-high TEDs, SCDs, and aspirin twice a day. 2. PT/OT, weightbear as tolerated. Left total knee protocol. 3. Pain control, doing okay with current pain regimen. 4. Wound care. We will reinforce her bandage today and then change it tomorrow at home with home he alth. 5. Disposition: Plan to discharge to home with some home health likely later today. Job ID: [id number]
--- NOTE | 2022-08-25 07:43 | Discharge Summary ---
Date of Service August 25, 2022 Discharge Data Consultations 08/21/22 13:32 Consult Pain Management Routine Procedures Performed Operation Date: 08/21/22 10:40 Actual Procedures p Left Total Knee Arthroplasty(Left) - Hector Hurt MD Hospital Course (1) Status post total left knee replacement: This is a 61 year old patient admitted on 08/21/22 and underwent total knee arthroplasty. She tolerated the procedure well and there were no complications. Transferred to the PACU post op and later to the orthopedic floor for further care. She was given ancef for antibiotic prophylaxis. She was also given CHRISTIAN stockings, SCDs, and aspirin for DVT prophylaxis. Hemoglobin, hematocrit, and vital signs were monitored during her hospital stay and remained stable. Did not require any blood transfusions. There were no complications during her hospital stay. By post op day #1 the patient was tolerating a regular diet, pain was reasonably controlled with oral pain medicine, and she was participating in physical therapy. On post op day #1 the patient was discharged home and set up with home health care. She was given printed discharge instructions including prescriptions for extra strength tylenol, aspirin, cefadroxil, ketorolac, zofran, senokot, and hydromorphone. Continue physical therapy, weight bearing as tolerated. Continue CHRISTIAN stockings. Follow up approximately 2 weeks post op or sooner if there are problems or concerns. Coding Level of Care Code None Diagnoses Status post total left knee replacement Z96.652
== END 2022-08-22 15:04 | disposition home health service (06) ==
LOC: 3E 08:24 → ASU 08:24

== ENCOUNTER 2023-05-27 12:34 | Inpatient (IN) ==
--- NOTE | 2023-05-27 13:38 | Emergency Department Note ---
Impression & Plan CVA (cerebral vascular accident), Hypertension, Left arm weakness, Confusion ED Provider Note NAME: LUIS ALBERTO BERUMEN AGE: 62 SEX: F ARRIVES VIA: Walk-In INFORMANT: Patient ED PROVIDER(S): Manjit Gamboa MD CHIEF COMPLAINT: Weakness and confusion x 2 days. PLAN: Disposition: Admit MEDICAL DECISION MAKING: The patient is a pleasant 62-year-old woman with a past medical history of hypertension, hyperlipidemia, history of prior drug abuse on Suboxone, chronic pain, daily smoking who presents to the emergency department via walk-in for evaluation of symptoms of confusion and left upper extremity weakness and sense of imbalance that she reports began 2 days ago but it took her that amount of time to get a ride to the emergency department. She reports she noticed that she was dropping things in her left hand. She reports today she fell over twice and lightly hit the side of her head but did not lose consciousness. She denies any fevers, chills, cough congestion, GI or symptoms. She denies any prior history of stroke and is unaware of having any imaging of her brain recently. Of note, the patient did arrive to emergency department during time of high volume, acuity and prolonged emergency department waiting times. Critical pathways initiated from triage. On evaluation the patient is in no acute distress, afebrile with blood pressure elevated in the 200s/90s and vital signs otherwise stable. She appears clinically dry. She has 4/5 strength in left upper extremity with mild pronator drift. She has some past-pointing with [id number] due to strength. Her face is symmetric and there is no overt aphasia or dysarthria but she does seem to have some delayed processing. EKG without overt acute ischemia. CXR negative for acute cardiopulmonary process per my personal preliminary review/interpretation. WBC 10.9 K, nonspecific. H/H and platelets within normal limits. Chemistry without metabolic acidosis. Electrolytes LFTs unremarkable. High-sensitivity troponin 6.4, within normal limits. TSH within limits. UA without evidence of infection. CT of the head without contrast demonstrates large right parietal encephalomalacia which given the clinical context is suggestive of subacute stroke as this region correlates with patient's symptoms. CTA of the head and neck was subsequently obtained and demonstrates extensive cerebrovascular disease with complete thrombosis of the right ICA from the bifurcation to the skull base with reconstitution via retrograde flow in the supraclinoid region. Additional note is made of likely peripheral branch occlusions in the right MCA within the infarcted territory in the proximal right MCA branches are otherwise widely patent. 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 Under lying dissection cannot be completely excluded however does not correlate with the clinical context at this time. Additional note is made of 50% focal stenosis of left ICA and high-grade stenosis within with focal near complete occlusion and trace flow in the left subclavian artery below the thoracic outlet. 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 Patient agrees with plan for admission for further management. Case was discussed with Dr. Durham, [facility] hospitalist, who will evaluate the patient for admission. Further management per admitting team. Triage Nursing notes reviewed and agree them. Prior/external medical records reviewed Vital Signs: reviewed Differential diagnosis: Infection, dehydration, metabolic abnormality, hypo/hyperglycemia, electrolyte disturbance, anemia, hypoxia, cardiac sources, intracerebral event, toxicologic, neurologic, as well as other pathologies. ER treatment provided: See below. Diagnostics interpreted by me: ECG: Normal sinus rhythm, 71 bpm, no ectopy, LVH, no overt ST elevation or depression, QTc 415, QRS 82 Cardiac Monitoring: An order for continuous cardiac monitoring was placed and demonstrated Normal sinus rhythm, 71 bpm, no ectopy, Laboratory studies: See below Imaging studies: See below HPI: The patient is a pleasant 62-year-old woman with a past medical history of hypertension, hyperlipidemia, history of prior drug abuse on Suboxone, chronic pain, daily smoking who presents to the emergency department via walk-in for evaluation of symptoms of confusion and left upper extremity weakness and sense of imbalance that she reports began 2 days ago but it took her that amount of time to get a ride to the emergency department. She reports she noticed that she was dropping things in her left hand. She reports today she fell over twice and lightly hit the side of her head but did not lose consciousness. She denies any fevers, chills, cough congestion, GI or symptoms. She denies any prior history of stroke and is unaware of having any imaging of her brain recently. ROS: See above HPI for pertinent positives & negatives. A total of 10 systems reviewed and were otherwise negative. VITALS:See Below PHYSICAL EXAMINATION: GENERAL: Awake, alert, well-appearing, in no distress HENT: Normocephalic, atraumatic. Oropharynx with dry mucous membranes and otherwise unremarkable. EYES: Normal conjunctiva. Sclera non-icteric. EOMI. No nystamgus. PEARRL. NECK: Supple. No nuchal rigidity. FROM. No JVD. RESPIRATORY: Clear to auscultation. CARDIAC: Regular rate, normal rhythm. Extremities warm and well perfused. Pulses equal. ABDOMEN: Soft, non-distended. No tenderness to palpation. No rebound or guarding. No masses. RECTAL: Deferred. MUSCULOSKELETAL: Chest examination reveals no tenderness. The back is symmetrical on inspection without obvious abnormality. There is no CVA tenderness to palpation. No joint edema. LOWER EXTREMITIES: Calves are equal size bilaterally and non-tender. No edema. No discoloration. NEURO: 4/5 strength in left upper extremity with mild pronator drift. She has some past-pointing with [id number] due to strength. Her face is symmetric and there is no overt aphasia or dysarthria but she does seem to have some delayed processing. SKIN: No rash or jaundice noted. Manjit Gamboa MD Past Med/Surg History Medical History Hyperlipidemia Hx of drug abuse per medical record-prescription pain killers following surgery; stopped using 4 years ago History of anxiety Hx of chest pain "get it 2-3 times per year, found to be from anxiety" Tobacco use 1 pack per day Chronic pain of left knee Encounter for pre-operative examination Chronic pain Pneumonia of both lower lobes 04/2022, not hospitalized; resolved. Surgical History History of removal of cyst NECK, FOREHEAD History of arthroscopic knee surgery BL History of laparoscopic cholecystectomy 04/17/19 Grade 1 view, MAC 3, ETT 7. Family History Mother Hypertension Father Hypertension Other No family history of adverse response to anesthesia Denies family history of Ovarian cancer Breast cancer Colorectal cancer Social History Smoking Status: Current every day smoker Tobacco Type: Cigarettes Cigarettes Per Day: 20; Second Hand Exposure: No; Do You Dip or Chew Tobacco: No; Hx Alcohol Use: No Hx Substance Use: Yes Last Used Substance Other:: per medical record-stopped 4 years ago Substance Use Type Other:: prescription pain killers following sx. Preferred Language: Ivorian Communication Ability: Effective Visual Impairment: No Limitations Hearing Ability: Normal Presser Machine Required: No Beliefs That Will Affect Care: None marital status: Current Living Situation: Alone current occupational status: employed Feels Safe at Home: Yes Childhood Exposure to Second-Hand Smoke: Yes Diet: regular caffeine: Yes Dental Care, Regularly: No Physical Activity Frequency: Daily Seatbelt Use: always Assistive Devices: Walker Allergies Allergies Allergy/AdvReac Type Severity Reaction Status Date / Time No Known Allergies Allergy Verified 05/27/23 15:09 Home Meds Home Medications Medication Instructions Recorded Confirmed buprenorphine 8 mg-naloxone 2 mg 1 film sublingual TID 04/17/19 05/27/23 sublingual film (Suboxone) meloxicam 15 mg tablet 15 mg PO DAILY 01/18/23 05/27/23 Previous Rx's Medication Instructions Recorded aspirin 81 mg tablet,delayed 81 mg PO BID 45 days #90 tabs 08/19/22 release (Nick Low Dose Aspirin) gabapentin 600 mg tablet 600 mg PO TID PRN Pain #270 tabs 03/12/23 rosuvastatin 10 mg tablet 10 mg PO DAILY #90 tabs 05/10/23 Results & Data (ED) Vital Signs Vital Signs - 24 hr 05/27/23 12:42 05/27/23 12:46 05/27/23 13:35 Temperature 36.8 C Temperature Source Temporal Artery Scan Pulse Rate 75 78 Pulse Rate [Apical] Pulse Rate from SpO2 Sensor Pulse Rhythm Regular Respiratory Rate 20 20 Respiratory Effort / Characteristics Non-Labored Spontaneous Respiratory Depth Normal Respiratory Pattern Regular Blood Pressure 204/96 H Blood Pressure [Left Arm] Blood Pressure Mean 132 Blood Pressure Mean [Left Arm] Pulse Oximetry 99 99 99 Oxygen Delivery Method Room Air Room Air Room Air Sepsis Recent Fever Within 48 Hours No Sepsis New/Unexplained Change in Mental Status No Sepsis Action Taken by Nursing No Action Required 05/27/23 14:00 05/27/23 14:03 05/27/23 14:03 Temperature Temperature Source Pulse Rate 71 Pulse Rate [Apical] 61 Pulse Rate from SpO2 Sensor 69 Pulse Rhythm Respiratory Rate 16 14 Respiratory Effort / Characteristics Respiratory Depth Respiratory Pattern Blood Pressure 176/101 H Blood Pressure [Left Arm] 176/101 H Blood Pressure Mean 142 Blood Pressure Mean [Left Arm] 126 Pulse Oximetry 95 98 Oxygen Delivery Method Sepsis Recent Fever Within 48 Hours Sepsis New/Unexplained Change in Mental Status Sepsis Action Taken by Nursing 05/27/23 14:10 05/27/23 14:48 05/27/23 14:50 Temperature Temperature Source Pulse Rate 61 63 72 Pulse Rate [Apical] Pulse Rate from SpO2 Sensor 61 62 Pulse Rhythm Respiratory Rate 15 17 Respiratory Effort / Characteristics Respiratory Depth Respiratory Pattern Blood Pressure Blood Pressure [Left Arm] Blood Pressure Mean Blood Pressure Mean [Left Arm] Pulse Oximetry 96 95 Oxygen Delivery Method Sepsis Recent Fever Within 48 Hours Sepsis New/Unexplained Change in Mental Status Sepsis Action Taken by Nursing 05/27/23 14:50 05/27/23 15:00 05/27/23 15:00 Temperature Temperature Source Pulse Rate 60 57 L Pulse Rate [Apical] Pulse Rate from SpO2 Sensor 60 58 L Pulse Rhythm Respiratory Rate 14 18 Respiratory Effort / Characteristics Respiratory Depth Respiratory Pattern Blood Pressure 160/89 H Blood Pressure [Left Arm] Blood Pressure Mean 123 Blood Pressure Mean [Left Arm] Pulse Oximetry 97 98 Oxygen Delivery Method Sepsis Recent Fever Within 48 Hours Sepsis New/Unexplained Change in Mental Status Sepsis Action Taken by Nursing 05/27/23 15:10 05/27/23 15:20 05/27/23 15:30 Temperature Temperature Source Pulse Rate 59 L 59 L 60 Pulse Rate [Apical] Pulse Rate from SpO2 Sensor 59 L 59 L 60 Pulse Rhythm Respiratory Rate 14 16 16 Respiratory Effort / Characteristics Respiratory Depth Respiratory Pattern Blood Pressure Blood Pressure [Left Arm] Blood Pressure Mean Blood Pressure Mean [Left Arm] Pulse Oximetry 93 96 100 Oxygen Delivery Method Sepsis Recent Fever Within 48 Hours Sepsis New/Unexplained Change in Mental Status Sepsis Action Taken by Nursing 05/27/23 15:32 05/27/23 15:32 05/27/23 15:40 Temperature Temperature Source Pulse Rate 66 56 L Pulse Rate [Apical] Pulse Rate from SpO2 Sensor 63 56 L Pulse Rhythm Respiratory Rate 17 18 Respiratory Effort / Characteristics Respiratory Depth Respiratory Pattern Blood Pressure 166/105 H Blood Pressure [Left Arm] Blood Pressure Mean 116 Blood Pressure Mean [Left Arm] Pulse Oximetry 96 97 Oxygen Delivery Method Sepsis Recent Fever Within 48 Hours Sepsis New/Unexplained Change in Mental Status Sepsis Action Taken by Nursing 05/27/23 15:50 Temperature Temperature Source Pulse Rate 51 L Pulse Rate [Apical] Pulse Rate from SpO2 Sensor 51 L Pulse Rhythm Respiratory Rate 12 Respiratory Effort / Characteristics Respiratory Depth Respiratory Pattern Blood Pressure Blood Pressure [Left Arm] Blood Pressure Mean Blood Pressure Mean [Left Arm] Pulse Oximetry 96 Oxygen Delivery Method Sepsis Recent Fever Within 48 Hours Sepsis New/Unexplained Change in Mental Status Sepsis Action Taken by Nursing Laboratory Data Attestation: I reviewed the patient's lab results. 05/27/23 13:26 05/27/23 13:26 Lab Results 05/27/23 05/27/23 Range/Units 13:26 14:04 WBC 10.97 H (4.8-10.8) K/ul RBC 4.47 (4.20-5.40) M/uL Hgb 13.7 (12.0-16.0) g/dl Hct 39.6 (37.0-47.0) % MCV 88.6 (80.0-100.0) fL MCH 30.6 (25.0-34.0) pg MCHC 34.6 (32.0-36.0) g/dL RDW Std Deviation 40.9 (36.4-46.3) fL RDW Coeff of Hayley 12.6 (11.5-14.5) % Plt Count 309 (130-400) K/uL MPV 8.1 L (9.4-12.4) fL Immature Gran % (Auto) 0.3 % Neut % (Auto) 72.0 % Lymph % (Auto) 21.7 % [place] % (Auto) 4.6 % Eos % (Auto) 1.0 % Baso % (Auto) 0.4 % Neut # (Auto) 7.91 H (1.40-6.50) K/uL Lymph # (Auto) 2.38 (1.20-3.40) K/uL [place] # (Auto) 0.50 (0.11-0.59) K/uL Eos # (Auto) 0.11 (0.00-0.50) K/uL Baso # (Auto) 0.04 (0.00-0.20) K/uL Immature Gran # (Auto) 0.03 (0.01-0.20) K/uL PT 10.8 (9.0-12.0) Seconds INR 1.0 (0.9-1.1) APTT 27 (21-31) Seconds PTT Ratio 1.0 Sodium 136 (136-145) mmol/L Potassium 3.9 (3.5-5.1) mmol/L Chloride 101 (98-107) mmol/L Carbon Dioxide 28 (21-32) mmol/L Anion Gap 7 (3-11) BUN 11 (6-23) mg/dl Creatinine 0.55 L (0.6-1.2) mg/dl Est Cr Clr Drug Dosing 114.7 ml/min Est GFR ( Amer) 116.5 ml/min Est GFR (Non-Af Amer) 100.5 ml/min BUN/Creatinine Ratio 20.0 (10-20) Glucose 98 (70-99(Fasting)) mg/dl Calcium 9.3 (8.6-10.3) mg/dl Magnesium 2.1 (1.7-2.4) mg/dl Total Bilirubin 0.5 (0.2-1.0) mg/dl AST 13 (13-39) U/L ALT 13 (7-52) U/L Alkaline Phosphatase 119 H (34-104) U/L Troponin I High Sens 6.4 (0-14) pg/ml Total Protein 7.8 (6.0-8.3) gm/dl Albumin 4.2 (3.4-5.0) gm/dl Globulin 3.6 (2.5-4.0) gm/dl Albumin/Globulin Ratio 1.2 (0.9-2) TSH 1.070 (0.300-4.500) uIu/ml Urine Color Yellow Urine Appearance Clear (Clear) Urine pH 7.0 (4.5-7.5) Ur Specific [place] 1.011 (1.000-1.030) Urine Protein Negative (Negative) Urine Glucose (UA) Negative (Negative) Urine Ketones Negative (Negative) Urine Blood 1+ H (Negative) Urine Nitrite Negative (Negative) Urine Bilirubin Negative (Negative) Urine Urobilinogen Negative (Negative) Ur Leukocyte Esterase Trace H (Negative) Urine WBC (Auto) 1-5 (0-5) /hpf Urine RBC (Auto) 0-4 (0-4) /hpf U Hyaline Cast (Auto) 0 (0-5) /lpf U Epithel Cells (Auto) 10-20 H (0-5) /lpf Urine Bacteria (Auto) Negative (Negative) Urine Opiates Screen Neg (Neg) Ur Methadone, Qual Neg (Neg) Urine Barbiturates Neg (Neg) Ur Phencyclidine (PCP) Neg (Neg) U Amphetamin/Meth Scrn Neg (Neg) MDMA (Ecstasy) Screen Neg (Neg) U Benzodiazepines Scrn Neg (Neg) Ur Cocaine Metabolite Neg (Neg) U Marijuana (THC) Screen Neg (Neg) Ethyl Alcohol mg/dL < 10.0 (<10.0) mg/dl Administered Medications Discontinued Medications Aspirin (Aspirin Chew 324 Mg) 324 mg PO NOW STA Stop: 05/27/23 15:52 Last Admin: 05/27/23 16:03 Dose: 324 mg Documented By: ARNEL Sodium Chloride (Nss) 1,000 mls @ 999 mls/hr IV .Q1H1M ONE Stop: 05/27/23 14:55 Last Infusion: 05/27/23 15:42 Dose: Infused Documented By: Admin: 05/27/23 14:07 Dose: 999 mls/hr Documented By: SUZY Acetaminophen (Ofirmev) 1,000 mg in 100 mls @ 400 mls/hr IV NOW STA Stop: 05/27/23 14:09 Last Infusion: 05/27/23 15:43 Dose: Infused Documented By: Admin: 05/27/23 14:07 Dose: 400 mls/hr Documented By: SUZY Ioversol (Optiray 320 125ml) 117 ml IV ONCE ONE Stop: 05/27/23 14:30 Last Admin: 05/27/23 14:30 Dose: 117 ml Documented By: EDK Imaging Data Radiologist's Impression: Chest X-Ray 05/27/23 12:46 SINGLE VIEW CHEST CLINICAL HISTORY: Generalized weakness. FINDINGS: A PA chest radiograph is compared to study dated 07/17/2022 and correlated with chest CT dated 03/03/2022. The heart is enlarged noting atherosclerotic calcification of the thoracic aorta. The pulmonary vasculature is noncongestive. There is mild bibasilar atelectasis. The lungs and pleural spaces are otherwise clear. No pneumothorax is seen. The skeletal structures are osteopenic. The bony thorax is grossly intact. Cholecystectomy clips are noted in the right upper quadrant. IMPRESSION: Cardiomegaly with no active disease in the chest. ACT 112: Negative or not required by law. Electronically signed by: Silvano Castellanos M.D. 05/27/2023 2:[address] 05/27/23 12:48 CT SCAN OF THE BRAIN WITHOUT IV CONTRAST CLINICAL HISTORY: Change in mental status. COMPARISON STUDY: CT of the brain dated 10/17/2011. TECHNIQUE: Unenhanced axial CT scan of the brain is performed from the vertex to the skull base. A dose lowering technique was utilized adhering to the principles of ALARA. CT DOSE: 547.75 mGy.cm FINDINGS: Brain parenchyma: There is a large focus of right parietal encephalomalacia, which is new from 2011. There is age-related involutional change noting mild subcortical and periventricular microangiopathic disease. There is no hemorrhage, mass effect, or evidence of acute territorial ischemia by CT criteria. Robbins-white matter differentiation is preserved. No extra-axial fluid collection is seen. Ventricles, sulci, cisterns: Prominent secondary to involutional change. Intracranial vasculature: There is atherosclerotic calcification of the cavernous carotid and vertebral arteries. Calvarium: Unremarkable. Sinuses and mastoids: The visualized paranasal sinuses are clear. The mastoid air cells are well pneumatized. Orbits: The bony orbits are grossly intact. IMPRESSION: 1. There is no hemorrhage, mass effect, or evidence of acute territorial ischemia by CT criteria. 2. There is a large focus of right parietal encephalomalacia consistent with previous infarct. This is new from 10/17/2011. Correlate clinically. ACT 112: Negative or not required by law. Electronically signed by: Silvano Castellanos M.D. 05/27/2023 1:58 PM Head CTA 05/27/23 13:55 CT ANGIOGRAM OF THE BRAIN; CT ANGIOGRAM OF THE NECK CLINICAL HISTORY: Left-sided weakness. Strokelike symptoms. COMPARISON STUDY: Unenhanced CT of the brain performed the same day 05/27/2023. TECHNIQUE: Following the IV administration of 170 of Optiray 320, CT angiogram of the head and neck was performed from the aortic arch to the vertex. Images are reviewed in the axial, sagittal, and coronal planes. 3-D MIPS images are created and assessed. IV contrast was administered without complication. All measurements were calculated based on NASCET criteria. A dose lowering technique was utilized adhering to the principles of ALARA. CT DOSE: 446.58 mGy.cm FINDINGS: Brain parenchyma: Again seen is a large focus of encephalomalacia in the high right parietal cortex. There is mild microangiopathic change. There is no evidence hemorrhage, mass effect, or acute territorial ischemia noting angiographic phase technique. There is no evidence of enhancing mass lesion on the angiogram phase images. The ventricles, sulci, and cisterns are normal in configuration. No extra-axial fluid collection is seen. Thoracic aorta: There is atherosclerotic calcification of the thoracic aorta. Visualized portions of the thoracic aorta are normal in caliber. The aortic arch demonstrates standard 3-vessel anatomy. Right carotid arterial system: The right common carotid artery is widely patent, as is the right external carotid artery. 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 Left carotid arterial system: The left common carotid artery is widely patent. There is approximately 50% focal stenosis of the origin of the left internal carotid artery. The left internal and external carotid arteries are otherwise widely patent. 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 This is reconstituted at the level of C5 on image #177. The distal right vertebral artery is patent to the skull base. Underlying dissection is not excluded. The diminutive right vertebral artery is widely patent. The distal right vertebral artery demonstrates a beaded appearance which could be seen with fibromuscular dysplasia. Subclavian arteries: There is high-grade stenosis with near-complete occlusion/trace flow of the left subclavian artery below the thoracic outlet. This is best seen on coronal MIPS image #35. The subclavian arteries are otherwise widely patent bilaterally. Intracranial vasculature: There is atherosclerotic calcification of the cavernous carotid and vertebral arteries. There is reconstitution of flow within the right internal carotid artery in the supraclinoid region. The left internal carotid artery is patent the skull base. The anterior and left middle cerebral arteries are patent bilaterally. There are likely peripheral branch occlusions within the left middle cerebral artery within the infarcted territory. The proximal branches of the right middle cerebral artery are patent. The vertebral arteries are patent at the skull base, and the basilar artery is patent. The left vertebral artery is dominant. The intracranial right vertebral artery is diminutive and terminates as the PICA. There is origin of the right posterior cerebral artery. The posterior cerebral arteries are patent. There is moderate to severe focal stenosis of the right posterior cerebral artery seen proximally on sagittal MIPS image #35. No aneurysm is seen throughout the intracranial circulation. Jugular veins: Patent bilaterally. Dural sinuses: Patent. Lung apices: Partially visualized upper lobe lung parenchyma appears clear. Soft tissues: The visualized pharyngeal soft tissues are normal in appearance noting angiographic phase technique. The oropharyngeal airway appears widely patent. The salivary and thyroid glands are normal in appearance. No cervical lymphadenopathy is seen. Skeletal structures: The calvarium appears intact. The cervical spine is maintained noting mild spondylosis. Orbits: The bony orbits are intact. Orbital contents are normal as visualized. Sinuses and mastoids: The paranasal sinuses are clear. The mastoid air cells are well pneumatized. IMPRESSION: 1. Again seen is a large focus of encephalomalacia in the high right parietal cortex. This is consistent with a previous infarct, and given the reported clinical history is likely late subacute. 2. There is no evidence of hemorrhage or mass effect. 3. 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 This is reconstituted via retrograde flow in the supraclinoid region. 4. There are likely peripheral branch occlusions of the right middle cerebral artery within the infarcted territory. The proximal right middle cerebral artery branches are widely patent. 5. 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 This is occluded at its origin with reconstitution at the level of C5. An underlying dissection would be impossible to exclude. 6. There is approximately 50% focal stenosis at the origin of the left internal carotid artery. 7. There is high-grade stenosis with focal near complete occlusion/trace flow in the left subclavian artery below the thoracic outlet. 8. Moderate to severe focal stenosis of the proximal right posterior cerebral artery. 9. There is a beaded appearance of the distal right vertebral artery. Underlying fibromuscular dysplasia is not excluded. 10. Additional findings as above. ACT 112: Negative or not required by law. Electronically signed by: Silvano Castellanos M.D. 05/27/2023 3:09 PM Neck CTA 05/27/23 13:55 CT ANGIOGRAM OF THE BRAIN; CT ANGIOGRAM OF THE NECK CLINICAL HISTORY: Left-sided weakness. Strokelike symptoms. COMPARISON STUDY: Unenhanced CT of the brain performed the same day 05/27/2023. TECHNIQUE: Following the IV administration of 170 of Optiray 320, CT angiogram of the head and neck was performed from the aortic arch to the vertex. Images are reviewed in the axial, sagittal, and coronal planes. 3-D MIPS images are created and assessed. IV contrast was administered without complication. All measurements were calculated based on NASCET criteria. A dose lowering technique was utilized adhering to the principles of ALARA. CT DOSE: 446.58 mGy.cm FINDINGS: Brain parenchyma: Again seen is a large focus of encephalomalacia in the high right parietal cortex. There is mild microangiopathic change. There is no evidence hemorrhage, mass effect, or acute territorial ischemia noting angiographic phase technique. There is no evidence of enhancing mass lesion on the angiogram phase images. The ventricles, sulci, and cisterns are normal in configuration. No extra-axial fluid collection is seen. Thoracic aorta: There is atherosclerotic calcification of the thoracic aorta. Visualized portions of the thoracic aorta are normal in caliber. The aortic arch demonstrates standard 3-vessel anatomy. Right carotid arterial system: The right common carotid artery is widely patent, as is the right external carotid artery. 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 Left carotid arterial system: The left common carotid artery is widely patent. There is approximately 50% focal stenosis of the origin of the left internal carotid artery. The left internal and external carotid arteries are otherwise widely patent. 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 This is reconstituted at the level of C5 on image #177. The distal right vertebral artery is patent to the skull base. Underlying dissection is not excluded. The diminutive right vertebral artery is widely patent. The distal right vertebral artery demonstrates a beaded appearance which could be seen with fibromuscular dysplasia. Subclavian arteries: There is high-grade stenosis with near-complete occlusion/trace flow of the left subclavian artery below the thoracic outlet. This is best seen on coronal MIPS image #35. The subclavian arteries are otherwise widely patent bilaterally. Intracranial vasculature: There is atherosclerotic calcification of the cavernous carotid and vertebral arteries. There is reconstitution of flow within the right internal carotid artery in the supraclinoid region. The left internal carotid artery is patent the skull base. The anterior and left middle cerebral arteries are patent bilaterally. There are likely peripheral branch occlusions within the left middle cerebral artery within the infarcted territory. The proximal branches of the right middle cerebral artery are patent. The vertebral arteries are patent at the skull base, and the basilar artery is patent. The left vertebral artery is dominant. The intracranial right vertebral artery is diminutive and terminates as the PICA. There is origin of the right posterior cerebral artery. The posterior cerebral arteries are patent. There is moderate to severe focal stenosis of the right posterior cerebral artery seen proximally on sagittal MIPS image #35. No aneurysm is seen throughout the intracranial circulation. Jugular veins: Patent bilaterally. Dural sinuses: Patent. Lung apices: Partially visualized upper lobe lung parenchyma appears clear. Soft tissues: The visualized pharyngeal soft tissues are normal in appearance noting angiographic phase technique. The oropharyngeal airway appears widely patent. The salivary and thyroid glands are normal in appearance. No cervical lymphadenopathy is seen. Skeletal structures: The calvarium appears intact. The cervical spine is maintained noting mild spondylosis. Orbits: The bony orbits are intact. Orbital contents are normal as visualized. Sinuses and mastoids: The paranasal sinuses are clear. The mastoid air cells are well pneumatized. IMPRESSION: 1. Again seen is a large focus of encephalomalacia in the high right parietal cortex. This is consistent with a previous infarct, and given the reported clinical history is likely late subacute. 2. There is no evidence of hemorrhage or mass effect. 3. 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 This is reconstituted via retrograde flow in the supraclinoid region. 4. There are likely peripheral branch occlusions of the right middle cerebral artery within the infarcted territory. The proximal right middle cerebral artery branches are widely patent. 5. 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 This is occluded at its origin with reconstitution at the level of C5. An underlying dissection would be impossible to exclude. 6. There is approximately 50% focal stenosis at the origin of the left internal carotid artery. 7. There is high-grade stenosis with focal near complete occlusion/trace flow in the left subclavian artery below the thoracic outlet. 8. Moderate to severe focal stenosis of the proximal right posterior cerebral artery. 9. There is a beaded appearance of the distal right vertebral artery. Underlying fibromuscular dysplasia is not excluded. 10. Additional findings as above. ACT 112: Negative or not required by law. Electronically signed by: Silvano Castellanos M.D. 05/27/2023 3:09 PM Brain MRI 05/27/23 15:54 MRI OF THE BRAIN WITHOUT IV CONTRAST CLINICAL HISTORY: Stroke COMPARISON STUDY: CT of the brain dated 05/27/2023. TECHNIQUE: MRI of the brain was performed utilizing various T1 and T2-weighted sequences in the axial, sagittal, and coronal planes. IV contrast was not administered for this examination. FINDINGS: Brain parenchyma: There is a large focus of restricted diffusion identified in the high right posterior parietal lobe. This is consistent with a subacute infarct when correlated with today's CT scans. No additional foci of acute ischemia are identified. There is no hemorrhage or mass effect. There is a small chronic lacunar infarct in the left cerebral hemisphere. No extra-axial fluid collection is seen. There is minimal microangiopathic change. The cerebellar tonsils are normal in configuration. Ventricles, sulci, and cisterns: Normal in configuration. Pituitary and sella: Unremarkable. Intracranial vasculature: There is loss of the right internal carotid artery flow void at the skull base. The remaining flow voids are maintained. Orbits: The bony orbits are grossly intact. Orbital contents are normal in appearance. Sinuses and mastoids: Clear. Calvarium: Unremarkable. Cervical cord: Partially visualized cervical spinal cord is normal in morphology and signal intensity. IMPRESSION: 1. Large subacute right parietal lobe infarct as above. 2. No additional foci of acute ischemia are identified. 3. There is no hemorrhage or mass effect. 4. There is loss of the right internal carotid artery flow void at the skull base. See today's CT angiogram of the brain report for detailed vascular findings. ACT 112: Negative or not required by law. Electronically signed by: Silvano Castellanos M.D. 05/27/2023 6:25 PM Discharge Plan Visit Data Chief Complaint: Altered Mental Status Stated Complaint: CONFUSION ED Provider: Manjit Gamboa Discharge Problem: CVA (cerebral vascular accident), Hypertension, Left arm weakness, Confusion Discharge Instructions Interventions: ED Discharge Assessment Last Done: 05/27/23 18:02 Discharge Problem: CVA (cerebral vascular accident) Qualifiers: CVA mechanism: unspecified Qualified Code(s): I63.9 - Cerebral infarction, unspecified Hypertension Qualifiers: Hypertension type: unspecified Qualified Code(s): I10 - Essential (primary) hypertension
[2023-05-27 13:43] LABS: Basophils # (auto) 0.04 K/uL (0.00-0.20); Basophils % (auto) 0.4 %; Eosinophils # (auto) 0.11 K/uL (0.00-0.50); Hematocrit (blood only) 39.6 % (37.0-47.0); Hemoglobin 13.7 g/dl (12.0-16.0); Immature Granulocytes # (auto) 0.03 K/uL (0.01-0.20); Immature Granulocytes % (auto) 0.3 %; Lymphocytes # (auto) 2.38 K/uL (1.20-3.40); Lymphocytes % (auto) 21.7 %; Mean Corpuscular Hemoglobin 30.6 pg (25.0-34.0); Mean Corpuscular Hgb Conc 34.6 g/dL (32.0-36.0); Mean Corpuscular Volume 88.6 fL (80.0-100.0); Mean Platelet Volume 8.1 fL (9.4-12.4); Monocytes % (auto) 4.6 %; Neutrophils # (auto) 7.91 K/uL (1.40-6.50); Platelet Count 309 K/uL (130-400); RDW Coefficient of Variation 12.6 % (11.5-14.5); RDW Standard Deviation 40.9 fL (36.4-46.3); Red Blood Count 4.47 M/uL (4.20-5.40); White Blood Count 10.97 K/ul (4.8-10.8)
[2023-05-27] MEDS ORDERED: ACETAMINOPHEN 1,000 MG/100 ML VIAL IV STA (13:55)
[2023-05-27] MEDS ORDERED: SODIUM CHLORIDE 0.9% 1,000 ML IV ONE (13:55)
--- NOTE | 2023-05-27 14:00 | CT Scan Report ---
CT SCAN OF THE BRAIN WITHOUT IV CONTRAST CLINICAL HISTORY: Change in mental status. COMPARISON STUDY: CT of the brain dated 10/17/2011. TECHNIQUE: Unenhanced axial CT scan of the brain is performed from the vertex to the skull base. A do se lowering technique was utilized adhering to the principles of ALARA. CT DOSE: 547.75 mGy.cm FINDINGS: Brain parenchyma: There is a large focus of right parietal encephalomalacia, which is new from 20 201 2. There is age-related involutional change noting mild subcortical and periventricular microangiopat hic disease. There is no hemorrhage, mass effect, or evidence of acute territorial ischemia by CT cri teria. Robbins-white matter differentiation is preserved. No extra-axial fluid collection is seen. Ventricles, sulci, cisterns: Prominent secondary to involutional change. Intracranial vasculature: There is atherosclerotic calcification of the cavernous carotid and vertebr al arteries. Calvarium: Unremarkable. Sinuses and mastoids: The visualized paranasal sinuses are clear. The mastoid air cells are well pneu matized. Orbits: The bony orbits are grossly intact. IMPRESSION: 1. There is no hemorrhage, mass effect, or evidence of acute territorial ischemia by CT criteria. 2. There is a large focus of right parietal encephalomalacia consistent with previous infarct. This i s new from 10/17/2011. Correlate clinically. ACT 112: Negative or not required by law. Electronically signed by: Silvano Castellanos M.D. 05/27/2023 1:58 PM
[2023-05-27 14:03] LABS: Albumin Globulin Ratio 1.2 (0.9-2); Albumin Level 4.2 gm/dl (3.4-5.0); Bilirubin,Total 0.5 mg/dl (0.2-1.0); Calcium 9.3 mg/dl (8.6-10.3); Creatinine Clr Calc Pharmacy 114.7 ml/min; Est GFR (African American) 116.5 ml/min; Est GFR (Non-African American) 100.5 ml/min; Globulin 3.6 gm/dl (2.5-4.0); Magnesium 2.1 mg/dl (1.7-2.4); Potassium 3.9 mmol/L (3.5-5.1); Total Protein 7.8 gm/dl (6.0-8.3)
--- NOTE | 2023-05-27 14:03 | XRay Report ---
SINGLE VIEW CHEST CLINICAL HISTORY: Generalized weakness. FINDINGS: A PA chest radiograph is compared to study dated 07/17/2022 and correlated with chest CT sakina ed 03/03/2022. The heart is enlarged noting atherosclerotic calcification of the thoracic aorta. The p ulmonary vasculature is noncongestive. There is mild bibasilar atelectasis. The lungs and pleural spa brenda are otherwise clear. No pneumothorax is seen. The skeletal structures are osteopenic. The bony th orax is grossly intact. Cholecystectomy clips are noted in the right upper quadrant. IMPRESSION: Cardiomegaly with no active disease in the chest. ACT 112: Negative or not required by law. Electronically signed by: Silvano Castellanos M.D. 05/27/2023 2:02 PM
[2023-05-27 14:08] LABS: Troponin I High Sensitivity 6.4 pg/ml (0-14)
[2023-05-27 14:15] LABS: Partial Thromboplastin Time 27 Seconds (21-31); Prothrombin Time 10.8 Seconds (9.0-12.0)
[2023-05-27 14:17] LABS: Thyroid Stimulating Hormone 1.07 uIu/ml (0.300-4.500)
[2023-05-27] MEDS ORDERED: OPTIRAY 320 125ml IV ONE (14:29)
[2023-05-27 14:47] LABS: Appearance Urine Clear (Clear); Bacteria Urine Automated Negative (Negative); Bilirubin Urine Negative (Negative); Blood Urine 1+ (Negative); Cast Urine Automated 0 /lpf (0-5); Color Urine Yellow; Glucose Urine UA Negative (Negative); Ketones Urine Negative (Negative); Leukocyte Esterase Urine Trace (Negative); Nitrite Urine Negative (Negative); Protein Urine Negative (Negative); RBC Urine Automated 0-4 /hpf (0-4); Specific Gravity Urine 1.011 (1.000-1.030); Urobilinogen Urine Negative (Negative)
[2023-05-27 15:07] LABS: Amphetamines+Metham, Urine Neg (Neg); Barbiturates, Urine Neg (Neg); Benzodiazepine, Urine Neg (Neg); Cocaine, Urine Neg (Neg); MDMA (Ecstacy), Urine Neg (Neg); Marijuana, Urine Neg (Neg); Methadone, Urine Neg (Neg); Opiate, Urine Neg (Neg); Phencyclidine, Urine Neg (Neg)
--- NOTE | 2023-05-27 15:11 | CT Scan Report ---
CT ANGIOGRAM OF THE BRAIN; CT ANGIOGRAM OF THE NECK CLINICAL HISTORY: Left-sided weakness. Strokelike symptoms. COMPARISON STUDY: Unenhanced CT of the brain performed the same day 05/27/2023. TECHNIQUE: Following the IV administration of 170 of Optiray 320, CT angiogram of the head and neck w as performed from the aortic arch to the vertex. Images are reviewed in the axial, sagittal, and yarely nal planes. 3-D MIPS images are created and assessed. IV contrast was administered without complicati on. All measurements were calculated based on NASCET criteria. A dose lowering technique was utilize d adhering to the principles of ALARA. CT DOSE: 446.58 mGy.cm FINDINGS: Brain parenchyma: Again seen is a large focus of encephalomalacia in the high right parietal cortex. There is mild microangiopathic change. There is no evidence hemorrhage, mass effect, or acute territo rial ischemia noting angiographic phase technique. There is no evidence of enhancing mass lesion on t he angiogram phase images. The ventricles, sulci, and cisterns are normal in configuration. No extra- axial fluid collection is seen. Thoracic aorta: There is atherosclerotic calcification of the thoracic aorta. Visualized portions of the thoracic aorta are normal in caliber. The aortic arch demonstrates standard 3-vessel anatomy. Right carotid arterial system: The right common carotid artery is widely patent, as is the right exte rnal carotid artery. 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 Left carotid arterial system: The left common carotid artery is widely patent. There is approximately 50% focal stenosis of the origin of the left internal carotid artery. The left internal and external carotid arteries are otherwise widely patent. 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 This is recons tituted at the level of C5 on image #177. The distal right vertebral artery is patent to the skull ba se. Underlying dissection is not excluded. The diminutive right vertebral artery is widely patent. Th e distal right vertebral artery demonstrates a beaded appearance which could be seen with fibromuscul ar dysplasia. Subclavian arteries: There is high-grade stenosis with near-complete occlusion/trace flow of the left subclavian artery below the thoracic outlet. This is best seen on coronal MIPS image #35. The subcla vian arteries are otherwise widely patent bilaterally. Intracranial vasculature: There is atherosclerotic calcification of the cavernous carotid and vertebr al arteries. There is reconstitution of flow within the right internal carotid artery in the supracli noid region. The left internal carotid artery is patent the skull base. The anterior and left middle cerebral arteries are patent bilaterally. There are likely peripheral branch occlusions within the le ft middle cerebral artery within the infarcted territory. The proximal branches of the right middle c erebral artery are patent. The vertebral arteries are patent at the skull base, and the basilar arter y is patent. The left vertebral artery is dominant. The intracranial right vertebral artery is diminu tive and terminates as the PICA. There is origin of the right posterior cerebral artery. The po sterior cerebral arteries are patent. There is moderate to severe focal stenosis of the right posteri or cerebral artery seen proximally on sagittal MIPS image #35. No aneurysm is seen throughout the int racranial circulation. Jugular veins: Patent bilaterally. Dural sinuses: Patent. Lung apices: Partially visualized upper lobe lung parenchyma appears clear. Soft tissues: The visualized pharyngeal soft tissues are normal in appearance noting angiographic pha se technique. The oropharyngeal airway appears widely patent. The salivary and thyroid glands are nor mal in appearance. No cervical lymphadenopathy is seen. Skeletal structures: The calvarium appears intact. The cervical spine is maintained noting mild spond ylosis. Orbits: The bony orbits are intact. Orbital contents are normal as visualized. Sinuses and mastoids: The paranasal sinuses are clear. The mastoid air cells are well pneumatized. IMPRESSION: 1. Again seen is a large focus of encephalomalacia in the high right parietal cortex. This is consist ent with a previous infarct, and given the reported clinical history is likely late subacute. 2. There is no evidence of hemorrhage or mass effect. 3. 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 This is reconstituted via retrograde flow in the supraclinoid region. 4. There are likely peripheral branch occlusions of the right middle cerebral artery within the infar cted territory. The proximal right middle cerebral artery branches are widely patent. 5. 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 This is occluded at its origin with reconstitution at the level of C5. An underlying dissection would be impossible to exclude. 6. There is approximately 50% focal stenosis at the origin of the left internal carotid artery. 7. There is high-grade stenosis with focal near complete occlusion/trace flow in the left subclavian artery below the thoracic outlet. 8. Moderate to severe focal stenosis of the proximal right posterior cerebral artery. 9. There is a beaded appearance of the distal right vertebral artery. Underlying fibromuscular dyspla sol is not excluded. 10. Additional findings as above. ACT 112: Negative or not required by law. Electronically signed by: Silvano Castellanos M.D. 05/27/2023 3:09 PM
[2023-05-27] MEDS ORDERED: ASPIRIN CHEW 324 MG PO STA (15:51)
--- NOTE | 2023-05-27 15:57 | History & Physical Report ---
Date of Service May 27, 2023 Assessment & Plan (1) CVA (cerebral vascular accident): (2) Hyperlipidemia: (3) History of drug abuse: (4) Hypertension: (5) Cigarette smoker: (6) Neuropathy: Plan Late subacute large right parietal CVA with encephalomalacia- Admit to telemetry As noted on CT head CTA head and neck show multiple areas of thrombosis: Complete thrombosis of the right ICA from the bifurcation to the skull base, with reconstitution via retrograde flow in the supraclinoid region Likely peripheral branch occlusions of the right MCA within the infarcted territory, with the proximal right MCA branches being widely patent 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 Occluded at the origin with reconstitution at the level of C5 Approximate 50% focal stenosis at the origin of the left ICA High-grade stenosis with focal near complete occlusion/trace flow in the left subclavian artery below the thoracic outlet Moderate to severe focal stenosis of the proximal right posterior cerebral artery There is a beaded appearance to the distal right vertebral artery with underlying fibromuscular dysplasia not excluded Patient has not been taking her aspirin regularly, reports taking it every once in a while Give aspirin 324 mg now, and then aspirin 81 mg daily She does report recently having been started on rosuvastatin, which she reports having only taken a couple pills Take rosuvastatin 10 mg daily Stroke without tPA order set Consult PT/OT/speech/neurology Order MRI brain without contrast Order complete echocardiogram Hyperlipidemia- Rosuvastatin 10 mg daily as noted History of drug abuse- Continue Suboxone sublingual 3 times daily when dose is verified History of Present Illness Chief Complaint: The patient presents to the emergency department with complaint of confusion and decreased ability to hold a cup and her left hand that began 2 days ago, and was just able to get transport to come to the ED for assessment today. Primary Care Provider: Akin Mcqueen DO The patient is a 62-year-old female with a past medical history including hyperlipidemia, rotator cuff fracture, osteoarthritis, history of drug abuse on Suboxone, peripheral neuropathy, lumbar radicular syndrome, hypertension, and tobacco abuse. She reports that she has been smoking more over the past weeks due to increased stress in her life. She denies any difficulty with swallowing or speech. she reports that she has had difficulty concentrating on work. She only takes her aspirin every once in a while, and reports having been started on rosuvastatin about a week ago and she has taken a couple of the pills. Her main symptoms are that of confusion and difficulty concentrating, and has difficulty holding objects in left arm. She reports that she continues to take her Suboxone 3 times a day as directed. Allergies Allergy/AdvReac Type Severity Reaction Status Date / Time No Known Allergies Allergy Verified 05/27/23 15:09 Home Medications Medication Instructions Recorded Confirmed Type buprenorphine 8 mg-naloxone 2 mg 1 film sublingual TID 04/17/19 05/27/23 History sublingual film (Suboxone) aspirin 81 mg tablet,delayed 81 mg PO BID 45 days #90 tabs 08/19/22 05/27/23 Rx release (Nick Low Dose Aspirin) meloxicam 15 mg tablet 15 mg PO DAILY 01/18/23 05/27/23 History gabapentin 600 mg tablet 600 mg PO TID PRN Pain #270 tabs 03/12/23 05/27/23 Rx rosuvastatin 10 mg tablet 10 mg PO DAILY #90 tabs 05/10/23 05/27/23 Rx Past Med/Surg History Medical History (Updated 05/27/23 @ 16:07 by Germain Durham MD) Hyperlipidemia Hx of drug abuse per medical record-prescription pain killers following surgery; stopped using 4 years ago History of anxiety Hx of chest pain "get it 2-3 times per year, found to be from anxiety" Tobacco use 1 pack per day Chronic pain of left knee Encounter for pre-operative examination Chronic pain Pneumonia of both lower lobes 04/2022, not hospitalized; resolved. Surgical History (Updated 08/25/22 @ 07:41 by Thierry Clarke PA-C) History of removal of cyst NECK, FOREHEAD History of arthroscopic knee surgery BL History of laparoscopic cholecystectomy 04/17/19 Grade 1 view, MAC 3, ETT 7. Family History Mother Hypertension Father Hypertension Other No family history of adverse response to anesthesia Denies family history of Ovarian cancer Breast cancer Colorectal cancer Social History (Updated 05/08/23 @ 15:40 by Deepa Rascon LPN) Smoking Status: Current every day smoker Tobacco Type: Cigarettes Cigarettes Per Day: 20; Second Hand Exposure: No; Do You Dip or Chew Tobacco: No; Hx Alcohol Use: No Hx Substance Use: Yes Last Used Substance Other:: per medical record-stopped 4 years ago Substance Use Type Other:: prescription pain killers following sx. Preferred Language: [place] Communication Ability: Effective Visual Impairment: No Limitations Hearing Ability: Normal Smoke Jumper Supervisor Required: No Beliefs That Will Affect Care: None marital status: Current Living Situation: Alone current occupational status: employed Feels Safe at Home: Yes Childhood Exposure to Second-Hand Smoke: Yes Diet: regular caffeine: Yes Dental Care, Regularly: No Physical Activity Frequency: Daily Seatbelt Use: always Assistive Devices: Walker Review of Systems Review of Systems: The patient denies chest pain, palpitations, shortness of breath, dyspnea on exertion, cough, lower extremity swelling, sore throat, fevers, chills, sweats, nausea, vomiting, diarrhea , constipation, abdominal pain, pelvic pain, blood in urine or stool, dysuria, urinary frequency or urgency, rash, abnormal bruising or bleeding, imbalance, focal or generalized weakness, numbness or tingling in legs, generalized arthralgias or myalgias, back or neck pain, or night sweats. The review of systems is otherwise negative other than for that already noted above, and at least 10 systems have been reviewed. Physical Exam Physical Exam: The patient is awake, mildly confused, normocephalic and atraumatic, lying in bed and in no acute distress. HEENT--PERRL, EOMI, mucous membranes and oropharynx mildly dry. Neck--supple. No JVD. No bruits. Thyroid normal, trachea midline, no adenopathy. Heart--normal S1 and S2. No murmurs, rubs or gallops. Lungs--clear bilaterally, no respiratory distress, no accessory muscle use. Abdomen--normal bowel sounds and soft. Nontender. Nondistended, no hernias or masses, no organomegaly. Extremities--no cyanosis or clubbing. No edema. NPO Dermatologic--normal skin turgor, normal color, no abnormal lymph nodes, no rash. Neurologic--cranial nerves II through XII grossly intact. Rheumatologic--normal range of motion. Psychiatric--normal affect. Results & Data Results & Data Vital Signs (Past 12 Hours) Vital Signs Temp Pulse Pulse Resp BP BP Pulse Ox 05/27/23 14:50 72 05/27/23 14:00 61 16 176/101 H 95 05/27/23 13:35 99 05/27/23 12:46 78 20 99 05/27/23 12:42 36.8 C 75 20 204/96 H 99 O2 Del Method 05/27/23 14:50 05/27/23 14:00 05/27/23 13:35 Room Air 05/27/23 12:46 Room Air 05/27/23 12:42 Room Air Laboratory Results Laboratory Results WBC 10.97 K/ul (4.8-10.8) H 05/27/23 13:26 RBC 4.47 M/uL (4.20-5.40) 05/27/23 13:26 Hgb 13.7 g/dl (12.0-16.0) 05/27/23 13:26 Hct 39.6 % (37.0-47.0) 05/27/23 13:26 MCV 88.6 fL (80.0-100.0) 05/27/23 13:26 MCH 30.6 pg (25.0-34.0) 05/27/23 13:26 MCHC 34.6 g/dL (32.0-36.0) 05/27/23 13:26 RDW Std Deviation 40.9 fL (36.4-46.3) 05/27/23 13:26 RDW Coeff of Hayley 12.6 % (11.5-14.5) 05/27/23 13:26 Plt Count 309 K/uL (130-400) 05/27/23 13:26 MPV 8.1 fL (9.4-12.4) L 05/27/23 13:26 Immature Gran % (Auto) 0.3 % 05/27/23 13:26 Neut % (Auto) 72.0 % 05/27/23 13:26 Lymph % (Auto) 21.7 % 05/27/23 13:26 Deuel % (Auto) 4.6 % 05/27/23 13:26 Eos % (Auto) 1.0 % 05/27/23 13:26 Baso % (Auto) 0.4 % 05/27/23 13:26 Neut # (Auto) 7.91 K/uL (1.40-6.50) H 05/27/23 13:26 Lymph # (Auto) 2.38 K/uL (1.20-3.40) 05/27/23 13:26 Deuel # (Auto) 0.50 K/uL (0.11-0.59) 05/27/23 13:26 Eos # (Auto) 0.11 K/uL (0.00-0.50) 05/27/23 13:26 Baso # (Auto) 0.04 K/uL (0.00-0.20) 05/27/23 13:26 Immature Gran # (Auto) 0.03 K/uL (0.01-0.20) 05/27/23 13:26 PT 10.8 Seconds (9.0-12.0) 05/27/23 13:26 INR 1.0 (0.9-1.1) 05/27/23 13:26 APTT 27 Seconds (-31) 05/27/23 13:26 PTT Ratio 1.0 05/27/23 13:26 Sodium 136 mmol/L (136-145) 05/27/23 13:26 Potassium 3.9 mmol/L (3.5-5.1) 05/27/23 13:26 Chloride 101 mmol/L (98-107) 05/27/23 13:26 Carbon Dioxide 28 mmol/L (21-32) 05/27/23 13:26 Anion Gap 7 (3-11) 05/27/23 13:26 BUN 11 mg/dl (6-23) 05/27/23 13:26 Creatinine 0.55 mg/dl (0.6-1.2) L 05/27/23 13:26 Est Cr Clr Drug Dosing 114.7 ml/min 05/27/23 13:26 Est GFR ( Amer) 116.5 ml/min 05/27/23 13:26 Est GFR (Non-Af Amer) 100.5 ml/min 05/27/23 13:26 BUN/Creatinine Ratio 20.0 (10-20) 05/27/23 13:26 Glucose 98 mg/dl (70-99(Fasting)) 05/27/23 13:26 Calcium 9.3 mg/dl (8.6-10.3) 05/27/23 13:26 Magnesium 2.1 mg/dl (1.7-2.4) 05/27/23 13:26 Total Bilirubin 0.5 mg/dl (0.2-1.0) 05/27/23 13:26 AST 13 U/L (13-39) 05/27/23 13:26 ALT 13 U/L (7-52) 05/27/23 13:26 Alkaline Phosphatase 119 U/L (34-104) H 05/27/23 13:26 Troponin I High Sens 6.4 pg/ml (0-14) 05/27/23 13:26 Total Protein 7.8 gm/dl (6.0-8.3) 05/27/23 13:26 Albumin 4.2 gm/dl (3.4-5.0) 05/27/23 13:26 Globulin 3.6 gm/dl (2.5-4.0) 05/27/23 13: Albumin/Globulin Ratio 1.2 (0.9-2) 05/27/23 13:26 TSH 1.070 uIu/ml (0.300-4.500) 05/27/23 13:26 Urine Color Yellow 05/27/23 14:04 Urine Appearance Clear (Clear) 05/27/23 14:04 Urine pH 7.0 (4.5-7.5) 05/27/23 14:04 Ur Specific [place] 1.011 (1.000-1.030) 05/27/23 14:04 Urine Protein Negative (Negative) 05/27/23 14:04 Urine Glucose (UA) Negative (Negative) 05/27/23 14:04 Urine Ketones Negative (Negative) 05/27/23 14:04 Urine Blood 1+ (Negative) H 05/27/23 14:04 Urine Nitrite Negative (Negative) 05/27/23 14:04 Urine Bilirubin Negative (Negative) 05/27/23 14:04 Urine Urobilinogen Negative (Negative) 05/27/23 14:04 Ur Leukocyte Esterase Trace (Negative) H 05/27/23 14:04 Urine WBC (Auto) 1-5 /hpf (0-5) 05/27/23 14:04 Urine RBC (Auto) 0-4 /hpf (0-4) 05/27/23 14:04 U Hyaline Cast (Auto) 0 /lpf (0-5) 05/27/23 14:04 U Epithel Cells (Auto) 10-20 /lpf (0-5) H 05/27/23 14:04 Urine Bacteria (Auto) Negative (Negative) 05/27/23 14:04 Urine Opiates Screen Neg (Neg) 05/27/23 14:04 Ur Methadone, Qual Neg (Neg) 05/27/23 14:04 Urine Barbiturates Neg (Neg) 05/27/23 14:04 Ur Phencyclidine (PCP) Neg (Neg) 05/27/23 14:04 U Amphetamin/Meth Scrn Neg (Neg) 05/27/23 14:04 MDMA (Ecstasy) Screen Neg (Neg) 05/27/23 14:04 U Benzodiazepines Scrn Neg (Neg) 05/27/23 14:04 Ur Cocaine Metabolite Neg (Neg) 05/27/23 14:04 U Marijuana (THC) Screen Neg (Neg) 05/27/23 14:04 Ethyl Alcohol mg/dL < 10.0 mg/dl (<10.0) 05/27/23 13:26 Impressions Chest X-Ray 05/27/23 12:46 SINGLE VIEW CHEST CLINICAL HISTORY: Generalized weakness. FINDINGS: A PA chest radiograph is compared to study dated 07/17/2022 and correlated with chest CT dated 03/03/2022. The heart is enlarged noting atherosclerotic calcification of the thoracic aorta. The pulmonary vasculature is noncongestive. There is mild bibasilar atelectasis. The lungs and pleural spaces are otherwise clear. No pneumothorax is seen. The skeletal structures are osteopenic. The bony thorax is grossly intact. Cholecystectomy clips are noted in the right upper quadrant. IMPRESSION: Cardiomegaly with no active disease in the chest. ACT 112: Negative or not required by law. Electronically signed by: Silvano Castellanos M.D. 05/27/2023 2:[address] 05/27/23 12:48 CT SCAN OF THE BRAIN WITHOUT IV CONTRAST CLINICAL HISTORY: Change in mental status. COMPARISON STUDY: CT of the brain dated 10/17/2011. TECHNIQUE: Unenhanced axial CT scan of the brain is performed from the vertex to the skull base. A dose lowering technique was utilized adhering to the principles of ALARA. CT DOSE: 547.75 mGy.cm FINDINGS: Brain parenchyma: There is a large focus of right parietal encephalomalacia, which is new from 2011. There is age-related involutional change noting mild subcortical and periventricular microangiopathic disease. There is no hemorrhage, mass effect, or evidence of acute territorial ischemia by CT criteria. Robbins-white matter differentiation is preserved. No extra-axial fluid collection is seen. Ventricles, sulci, cisterns: Prominent secondary to involutional change. Intracranial vasculature: There is atherosclerotic calcification of the cavernous carotid and vertebral arteries. Calvarium: Unremarkable. Sinuses and mastoids: The visualized paranasal sinuses are clear. The mastoid air cells are well pneumatized. Orbits: The bony orbits are grossly intact. IMPRESSION: 1. There is no hemorrhage, mass effect, or evidence of acute territorial ischemia by CT criteria. 2. There is a large focus of right parietal encephalomalacia consistent with previous infarct. This is new from 10/17/2011. Correlate clinically. ACT 112: Negative or not required by law. Electronically signed by: Silvano Castellanos M.D. 05/27/2023 1:58 PM Head CTA 05/27/23 13:55 CT ANGIOGRAM OF THE BRAIN; CT ANGIOGRAM OF THE NECK CLINICAL HISTORY: Left-sided weakness. Strokelike symptoms. COMPARISON STUDY: Unenhanced CT of the brain performed the same day 05/27/2023. TECHNIQUE: Following the IV administration of 170 of Optiray 320, CT angiogram of the head and neck was performed from the aortic arch to the vertex. Images are reviewed in the axial, sagittal, and coronal planes. 3-D MIPS images are created and assessed. IV contrast was administered without complication. All measurements were calculated based on NASCET criteria. A dose lowering technique was utilized adhering to the principles of ALARA. CT DOSE: 446.58 mGy.cm FINDINGS: Brain parenchyma: Again seen is a large focus of encephalomalacia in the high right parietal cortex. There is mild microangiopathic change. There is no evidence hemorrhage, mass effect, or acute territorial ischemia noting angiographic phase technique. There is no evidence of enhancing mass lesion on the angiogram phase images. The ventricles, sulci, and cisterns are normal in configuration. No extra-axial fluid collection is seen. Thoracic aorta: There is atherosclerotic calcification of the thoracic aorta. Visualized portions of the thoracic aorta are normal in caliber. The aortic arch demonstrates standard 3-vessel anatomy. Right carotid arterial system: The right common carotid artery is widely patent, as is the right external carotid artery. 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 Left carotid arterial system: The left common carotid artery is widely patent. There is approximately 50% focal stenosis of the origin of the left internal carotid artery. The left internal and external carotid arteries are otherwise widely patent. 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 This is reconstituted at the level of C5 on image #177. The distal right vertebral artery is patent to the skull base. Underlying dissection is not excluded. The diminutive right vertebral artery is widely patent. The distal right vertebral artery demonstrates a beaded appearance which could be seen with fibromuscular dysplasia. Subclavian arteries: There is high-grade stenosis with near-complete occlusion/trace flow of the left subclavian artery below the thoracic outlet. This is best seen on coronal MIPS image #35. The subclavian arteries are otherwise widely patent bilaterally. Intracranial vasculature: There is atherosclerotic calcification of the cavernous carotid and vertebral arteries. There is reconstitution of flow within the right internal carotid artery in the supraclinoid region. The left internal carotid artery is patent the skull base. The anterior and left middle cerebral arteries are patent bilaterally. There are likely peripheral branch occlusions within the left middle cerebral artery within the infarcted territory. The proximal branches of the right middle cerebral artery are patent. The vertebral arteries are patent at the skull base, and the basilar artery is patent. The left vertebral artery is dominant. The intracranial right vertebral artery is diminutive and terminates as the PICA. There is origin of the right posterior cerebral artery. The posterior cerebral arteries are patent. There is moderate to severe focal stenosis of the right posterior cerebral artery seen proximally on sagittal MIPS image #35. No aneurysm is seen throughout the int racranial circulation. Jugular veins: Patent bilaterally. Dural sinuses: Patent. Lung apices: Partially visualized upper lobe lung parenchyma appears clear. Soft tissues: The visualized pharyngeal soft tissues are normal in appearance noting angiographic phase technique. The oropharyngeal airway appears widely patent. The salivary and thyroid glands are normal in appearance. No cervical ly mphadenopathy is seen. Skeletal structures: The calvarium appears intact. The cervical spine is maintained noting mild spondylosis. Orbits: The bony orbits are intact. Orbital contents are normal as visualized. Sinuses and mastoids: The paranasal sinuses are clear. The mastoid air cells are well pneumatized. IMPRESSION: 1. Again seen is a large focus of encephalomalacia in the high right parietal cortex. This is consistent with a previous infarct, and given the reported clinical history is likely late subacute. 2. There is no evidence of hemorrhage or mass effect. 3. 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 This is reconstituted via retrograde flow in the supraclinoid region. 4. There are likely peripheral branch occlusions of the right middle cerebral artery within the infarcted territory. The proximal right middle cerebral artery branches are widely patent. 5. 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 This is occluded at its origin with reconstitution at the level of C5. An underlying dissection would be impossible to exclude. 6. There is approximately 50% focal stenosis at the origin of the left internal carotid artery. 7. There is high-grade stenosis with focal near complete occlusion/trace flow in the left subclavian artery below the thoracic outlet. 8. Moderate to severe focal stenosis of the proximal right posterior cerebral artery. 9. There is a beaded appearance of the distal right vertebral artery. Underlying fibromuscular dysplasia is not excluded. 10. Additional findings as above. ACT 112: Negative or not required by law. Electronically signed by: Silvano Castellanos M.D. 05/27/2023 3:09 PM Neck CTA 05/27/23 13:55 CT ANGIOGRAM OF THE BRAIN; CT ANGIOGRAM OF THE NECK CLINICAL HISTORY: Left-sided weakness. Strokelike symptoms. COMPARISON STUDY: Unenhanced CT of the brain performed the same day 05/27/2023. TECHNIQUE: Following the IV administration of 170 of Optiray 320, CT angiogram of the head and neck was performed from the aortic arch to the vertex. Images are reviewed in the axial, sagittal, and coronal planes. 3-D MIPS images are created and assessed. IV contrast was administered without complication. All measurements were calculated based on NASCET criteria. A dose lowering techn ique was utilized adhering to the principles of ALARA. CT DOSE: 446.58 mGy.cm FINDINGS: Brain parenchyma: Again seen is a large focus of encephalomalacia in the high right parietal cortex. There is mild microangiopathic change. There is no evidence hemorrhage, mass effect, or acute territorial ischemia noting angiographic phase technique. There is no evidence of enhancing mass lesion on the angiogram phase images. The ventricles, sulci, and cisterns are normal in configuration. No extra-axial fluid collection is seen. Thoracic aorta: There is atherosclerotic calcification of the thoracic aorta. Visualized portions of the thoracic aorta are normal in caliber. The aortic arch demonstrates standard 3-vessel anatomy. Right carotid arterial system: The right common carotid artery is widely patent, as is the right external carotid artery. 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 Left carotid arterial system: The left common carotid artery is widely patent. There is approximately 50% focal stenosis of the origin of the left internal carotid artery. The left internal and external carotid arteries are otherwise widely patent. 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 This is reconstituted at the level of C5 on image #177. The distal right vertebral artery is patent to the skull base. Underlying dissection is not excluded. The diminutive right vertebral artery is widely patent. The distal right vertebral artery demonstrates a beaded appearance which could be seen with fibromuscular dysplasia. Subclavian arteries: There is high-grade stenosis with near-complete occlusion/trace flow of the left subclavian artery below the thoracic outlet. This is best seen on coronal MIPS image #35. The subclavian arteries are otherwise widely patent bilaterally. Intracranial vasculature: There is atherosclerotic calcification of the cavernous carotid and vertebral arteries. There is reconstitution of flow within the right internal carotid artery in the supraclinoid region. The left internal carotid artery is patent the skull base. The anterior and left middle cerebral arteries are patent bilaterally. There are likely peripheral branch occlusions within the left middle cerebral artery within the infarcted territory. The proximal branches of the right middle cerebral artery are patent. The vertebral arteries are patent at the skull base, and the basilar artery is patent. The left vertebral artery is dominant. The intracranial right vertebral artery is diminutive and terminates as the PICA. There is origin of the right posterior cerebral artery. The posterior cerebral arteries are patent. There is moderate to severe focal stenosis of the right posterior cerebral artery seen proximally on sagittal MIPS image #35. No aneurysm is seen throughout the intracranial circulation. Jugular veins: Patent bilaterally. Dural sinuses: Patent. Lung apices: Partially visualized upper lobe lung parenchyma appears clear. Soft tissues: The visualized pharyngeal soft tissues are normal in appearance noting angiographic phase technique. The oropharyngeal airway appears widely patent. The salivary and thyroid glands are normal in appearance. No cervical lymphadenopathy is seen. Skeletal structures: The calvarium appears intact. The cervical spine is maintained noting mild spondylosis. Orbits: The bony orbits are intact. Orbital contents are normal as visualized. Sinuses and mastoids: The paranasal sinuses are clear. The mastoid air cells are well pneumatized. IMPRESSION: 1. Again seen is a large focus of encephalomalacia in the high right parietal cortex. This is consistent with a previous infarct, and given the reported clinical history is likely late subacute. 2. There is no evidence of hemorrhage or mass effect. 3. 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 This is reconstituted via retrograde flow in the supraclinoid region. 4. There are likely peripheral branch occlusions of the right middle cerebral artery within the infarcted territory. The proximal right middle cerebral artery branches are widely patent. 5. 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 This is occluded at its origin with reconstitution at the level of C5. An underlying dissection would be impossible to exclude. 6. There is approximately 50% focal stenosis at the origin of the left internal carotid artery. 7. There is high-grade stenosis with focal near complete occlusion/trace flow in the left subclavian artery below the thoracic outlet. 8. Moderate to severe focal stenosis of the proximal right posterior cerebral artery. 9. There is a beaded appearance of the distal right vertebral artery. Underlying fibromuscular dysplasia is not excluded. 10. Additional findings as above. ACT 112: Negative or not required by law. Electronically signed by: Silvano Castellanos M.D. 05/27/2023 3:09 PM Code Status & VTE Plan Code Status Full code VTE Prophylaxis Plan VTE Prophylaxis will be ordered: Yes PG Care Time/CCT Total # of Minutes Spent Total Time Spent with Patient: Total time spent is greater than 50% in coordination of care (as documented) at patient's floor/unit and/or counseling patient: Coding Level of Care Code 55591 INT INP/OBS CARE 3/75MIN Diagnoses CVA (cerebral vascular accident) I63.9 Hyperlipidemia E78.5 History of drug abuse F19.11 Hypertension I10 Cigarette smoker F17.210 Neuropathy G62.9
[2023-05-27] MEDS ORDERED: PHARMACIST DISCHARGE MED REC CONSULT PRN (18:01)
[2023-05-27] MEDS ORDERED: ONDANSETRON INJ 2 MG/ML 2 ML VIAL IV PRN (18:01)
--- NOTE | 2023-05-27 18:28 | Magnetic Resonance Report ---
MRI OF THE BRAIN WITHOUT IV CONTRAST CLINICAL HISTORY: Stroke COMPARISON STUDY: CT of the brain dated 05/27/2023. TECHNIQUE: MRI of the brain was performed utilizing various T1 and T2-weighted sequences in the axial , sagittal, and coronal planes. IV contrast was not administered for this examination. FINDINGS: Brain parenchyma: There is a large focus of restricted diffusion identified in the high right posteri or parietal lobe. This is consistent with a subacute infarct when correlated with today's CT scans. N o additional foci of acute ischemia are identified. There is no hemorrhage or mass effect. There is a small chronic lacunar infarct in the left cerebral hemisphere. No extra-axial fluid collection is se en. There is minimal microangiopathic change. The cerebellar tonsils are normal in configuration. Ventricles, sulci, and cisterns: Normal in configuration. Pituitary and sella: Unremarkable. Intracranial vasculature: There is loss of the right internal carotid artery flow void at the skull b ase. The remaining flow voids are maintained. Orbits: The bony orbits are grossly intact. Orbital contents are normal in appearance. Sinuses and mastoids: Clear. Calvarium: Unremarkable. Cervical cord: Partially visualized cervical spinal cord is normal in morphology and signal intensity . IMPRESSION: 1. Large subacute right parietal lobe infarct as above. 2. No additional foci of acute ischemia are identified. 3. There is no hemorrhage or mass effect. 4. There is loss of the right internal carotid artery flow void at the skull base. See today's CT ang iogram of the brain report for detailed vascular findings. ACT 112: Negative or not required by law. Electronically signed by: Silvano Castellanos M.D. 05/27/2023 6:25 PM
[2023-05-27] MEDS: NSS + 20MEQ KCL 20 MEQ/1,000 ML BAG IV SCH (21:09)
[2023-05-28] MEDS: BUPRENORPHINE/NALOXONE 8/2 MG TAB SL SCH ×3 (00:05→14:28)
[2023-05-28] MEDS: NICOTINE 21 MG/24 HR TDSY TD SCH ×2 (00:36→08:11)
--- NOTE | 2023-05-28 06:59 | Hospitalist Progress Note ---
Date of Service May 28, 2023 Assessment & Plan Plan (1) CVA (cerebral vascular accident): (2) Hyperlipidemia: (3) History of drug abuse: (4) Hypertension: (5) Cigarette smoker: (6) Neuropathy: Plan Late subacute large right parietal CVA with encephalomalacia- Admit to telemetry As noted on CT head CTA head and neck show multiple areas of thrombosis: Complete thrombosis of the right ICA from the bifurcation to the skull base, with reconstitution via retrograde flow in the supraclinoid region Likely peripheral branch occlusions of the right MCA within the infarcted territory, with the proximal right MCA branches being widely patent 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 Occluded at the origin with reconstitution at the level of C5 Approximate 50% focal stenosis at the origin of the left ICA High-grade stenosis with focal near complete occlusion/trace flow in the left subclavian artery below the thoracic outlet Moderate to severe focal stenosis of the proximal right posterior cerebral artery There is a beaded appearance to the distal right vertebral artery with underlying fibromuscular dysplasia not excluded Patient has not been taking her aspirin regularly, reports taking it every once in a while Give aspirin 324 mg now, and then aspirin 81 mg daily She does report recently having been started on rosuvastatin, which she reports having only taken a couple pills Take rosuvastatin 10 mg daily Stroke without tPA order set Consult PT/OT/speech/neurology Order MRI brain without contrast Order complete echocardiogram Hyperlipidemia- Rosuvastatin 10 mg daily as noted History of drug abuse- Continue Suboxone sublingual 3 times daily when dose is verified Admission and Anticipated Discharge Date Admission Date: May 27, 2023 Subjective Pt is a [] yo [] with a past medical history of [] who presents to the hospital on [] for []. Review of Systems Review of Systems: Constitutional: denies fever, chills, [] HEENT: denies congestion, sore throat Cardio: denies chest pain, palpitations Resp: denies shortness of breath, cough GI: denies abdominal pain, nausea, vomiting, constipation, diarrhea : denies pain with urination, change in urinary frequency Neuro: denies new numbness, tingling, weakness Physical Exam Physical Exam: General:Alert and oriented, no acute distress, [] HEENT: Normocephalic, moist oral mucosa, Cardio: Regular rate and rhythm, no murmur, Resp:Lungs clear to auscultation b/l, no wheezes or rhonchi, GI: Soft and nontender, nondistended, bowel sounds active Skin: Warm, pink, dry, Psych: Mood-affect congruence. Results & Data Results & Data Vital Signs (Past 12 Hours) Vital Signs Temp Pulse Pulse Resp BP BP Pulse Ox 05/28/23 03:45 36.7 C 65 18 119/76 93 05/28/23 00:04 64 05/28/23 00:03 36.6 C 69 17 208/107 H 96 05/27/23 19:57 66 19 142/101 H 93 O2 Del Method 05/28/23 03:45 Room Air 05/28/23 00:04 05/28/23 00:03 Room Air 05/27/23 19:57 Room Air
[2023-05-28 07:17] LABS: Basophils # (auto) 0.04 K/uL (0.00-0.20); Basophils % (auto) 0.4 %; Eosinophils # (auto) 0.14 K/uL (0.00-0.50); Eosinophils % (auto) 1.5 %; Hematocrit (blood only) 38.3 % (37.0-47.0); Hemoglobin 12.6 g/dl (12.0-16.0); Immature Granulocytes # (auto) 0.03 K/uL (0.01-0.20); Immature Granulocytes % (auto) 0.3 %; Lymphocytes % (auto) 29.6 %; Mean Corpuscular Hemoglobin 30.2 pg (25.0-34.0); Mean Corpuscular Hgb Conc 32.9 g/dL (32.0-36.0); Mean Corpuscular Volume 91.8 fL (80.0-100.0); Mean Platelet Volume 8.3 fL (9.4-12.4); Monocytes # (auto) 0.47 K/uL (0.11-0.59); Monocytes % (auto) 5.1 %; Neutrophils # (auto) 5.75 K/uL (1.40-6.50); Neutrophils % (auto) 63.1 %; Platelet Count 276 K/uL (130-400); RDW Coefficient of Variation 12.6 % (11.5-14.5); RDW Standard Deviation 42.4 fL (36.4-46.3); Red Blood Count 4.17 M/uL (4.20-5.40); White Blood Count 9.13 K/ul (4.8-10.8)
[2023-05-28 07:39] LABS: Albumin Globulin Ratio 1.2 (0.9-2); Albumin Level 3.7 gm/dl (3.4-5.0); Bilirubin,Total 0.6 mg/dl (0.2-1.0); Calcium 8.6 mg/dl (8.6-10.3); Chol HDL Ratio 2.7 (0-5); Creatinine Clr Calc Pharmacy 66.5 ml/min; Est GFR (African American) 120.2 ml/min; Est GFR (Non-African American) 103.7 ml/min; Magnesium 2.1 mg/dl (1.7-2.4); Total Protein 6.7 gm/dl (6.0-8.3)
[2023-05-28 07:42] LABS: Partial Thromboplastin Time 27 Seconds (21-31)
[2023-05-28 07:50] LABS: Estimated Average Glucose 126 mg/dl
[2023-05-28] MEDS: NSS + 20MEQ KCL 20 MEQ/1,000 ML BAG IV SCH (08:14)
[2023-05-28] MEDS ORDERED: ROSUVASTATIN CALCIUM 10 MG TAB PO SCH (09:00)
[2023-05-28] MEDS ORDERED: ASPIRIN 81 MG ECTAB PO SCH (09:00)
--- NOTE | 2023-05-28 09:21 | Neurology Consultation ---
Date of Consultation May 28, 2023 Assessment & Plan (1) CVA (cerebral vascular accident): (2) Right carotid artery occlusion: (3) Left arm weakness: (4) Confusion: (5) Hypertension: Plan Patient suffered a rather large wedgelike right parietal stroke, likely last week (May 24 probably). This occurred despite being on 81 mg aspirin. This is resulted in some increased confusion and left upper extremity weakness. She has no other focal deficits on exam. She has no encephalopathy or meningeal signs. 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 She has right internal carotid and left vertebral occlusions, with stenoses at multiple other areas as noted on CT angiography. Risk factors for stroke include significant hypertension and near lifelong smoking. Recommendations: 1. Initiate clopidogrel and remain on both clopidogrel 75 mg and aspirin 81 mg daily for 3 weeks then switch to clopidogrel alone 2. Increase activity as able and obtain speech, occupational, and physical therapy consults 3. Awaiting echocardiogram results 4. Stop cigarette smoking 5. Control blood pressure as you are doing, aiming for mean arterial pressure of 95-100. 6. Keep rosuvastatin the same for now. Her total cholesterol is 144 and so therefore she has not a high-dose statin candidate. 7. Consider (outpatient) vacular surgery opinion/consult given her significant CTA findings Overall, I spent a total of 75 minutes with this case including review of records, review of MRI films, direct evaluation of the patient at bedside, report generation, and discussion of the case with the patient and RN at bedside and Dr. Robles, including differential diagnosis and treatment options. History of Present Illness Reason for Consultation: Patient is a 62-year-old, who I was asked to see at the request of Dr. Manuel, for neurologic evaluation regarding stroke Requesting Physician: Dr. Manuel Attending Physician: Herberth Robles, History of Present Illness This patient is a longstanding cigarette smoker and has a history of hypertension, dyslipidemia, and chronic pain including back and right shoulder. She had been on 81 mg aspirin tablet and 10 mg rosuvastatin daily. 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 It has been very hard for her and cognitively she feels like it takes her longer time to understand things. 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 In the summer of this year she feels that she was totally sharp and fine. On May 24, she woke with some confusion and weakness of the left hand. She would drop things. She tried to go to work but it was too confusing for her and she left early. Her left arm weakness and confusion lasted for several days, unchanging. She felt that her gait was fine and her legs were not weak. She had no vision issues, dizziness, numbness or tingling, or speech problems. 1 time she smoked a cigarette and it felt like she was worse. She fell once hitting her head with no loss of consciousness. She does not have a headache. She arrived at the emergency room May 27 at 1242, with a temperature of 36.8, pulse 75 and regular, respiratory rate 20, blood pressure 204/96 and O2 saturation 99%. She was somewhat confused and had left arm weakness. CBC showed a mildly elevated white count and CHEM profile was unremarkable except for an alk phos of 119. She had a TSH of 1.0 and a negative urinalysis, tox screen, and alcohol level. Chest x-ray showed cardiomegaly. CT scan of the head showed a large right parietal area of encephalomalacia new from September 2011 (no more recent scans). CT angiography of the head and neck revealed a complete thrombosis of the right internal carotid artery from bifurcation to skull base, peripheral branch occlusions in the right middle cerebral artery territory, complete thrombosis of the left vertebral artery from the origin to about the level of C5, a 50% s tenosis of the left internal carotid artery at the origin, and a high- grade/trace opening stenosis of the left subclavian below the level of the thoracic outlet. The right vertebral was beaded distally suggesting possible fibromuscular dysplasia. MRI of the brain revealed a large wedge shaped posterior right parietal stroke of the subacute nature. There was minimal old small vessel disease and no atrophy. I reviewed these films. Today she feels improved CBC and CHEM profile are unremarkable. Total cholesterol was 144 and triglycerides 83. Hemoglobin A1c was 6.0. She feels back to baseline except for her left upper extremity. She has been in normal sinus rhythm from the 50s to 70s overnight. Allergies Allergy/AdvReac Type Severity Reaction Status Date / Time No Known Allergies Allergy Verified 05/27/23 15:09 Home Medications Medication Instructions Recorded Confirmed Type buprenorphine 8 mg-naloxone 2 mg 1 film sublingual TID 04/17/19 05/27/23 History sublingual film (Suboxone) aspirin 81 mg tablet,delayed 81 mg PO BID 45 days #90 tabs 08/19/22 05/27/23 Rx release (Nick Low Dose Aspirin) meloxicam 15 mg tablet 15 mg PO DAILY 01/18/23 05/27/23 History gabapentin 600 mg tablet 600 mg PO TID PRN Pain #270 tabs 03/12/23 05/27/23 Rx rosuvastatin 10 mg tablet 10 mg PO DAILY #90 tabs 05/10/23 05/27/23 Rx Patient History Medical History Hyperlipidemia Hx of drug abuse per medical record-prescription pain killers following surgery; stopped using 4 years ago History of anxiety Hx of chest pain "get it 2-3 times per year, found to be from anxiety" Tobacco use 1 pack per day Chronic pain of left knee Encounter for pre-operative examination Chronic pain Pneumonia of both lower lobes 04/2022, not hospitalized; resolved. Surgical History History of removal of cyst NECK, FOREHEAD History of arthroscopic knee surgery BL History of laparoscopic cholecystectomy 04/17/19 Grade 1 view, MAC 3, ETT 7. Family History Mother Hypertension Heart disease Father , age 81 of an [place] Hypertension Heart disease Other No family history of adverse response to anesthesia Denies family history of Ovarian cancer Breast cancer Colorectal cancer Social History (Updated 05/28/23 @ 09:11 by Vishal Fernando MD) Smoking Status: Current every day smoker Tobacco Type: Cigarettes Age Started Using Tobacco: 15; packs per day: 1; Cigarettes Per Day: 20; Second Hand Exposure: Yes; Do You Dip or Chew Tobacco: No; Hx Alcohol Use: No Hx Substance Use: Yes Last Used Substance: Unknown Last Used Substance Other:: Pt on subxone Substance Use Type Other:: prescription pain killers following sx. 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 Feels Safe at Home: Yes Childhood Exposure to Second-Hand Smoke: Yes Diet: regular caffeine: Yes Dental Care, Regularly: No Physical Activity Frequency: Daily Seatbelt Use: always Assistive Devices: Glasses Review of Systems Constitutional: no fever, no fatigue and no weakness Eyes: no diplopia, no eye pain and no worsening vision Ear, Nose, Mouth, Throat: no ear pain, no tinnitus, no hearing loss, no dizziness, no snoring, no hoarseness and no dysphagia Respiratory: no cough and no dyspnea Cardiovascular: no chest pain, no palpitations and no lightheadedness Gastrointestinal: no abdominal pain, no nausea and no vomiting Genitourinary: no dysuria, no urinary frequency and no urinary incontinence Musculoskeletal: no back pain, no neck pain, no radicular pain, no joint pain and no myalgia Integumentary: no rash and no lesions Neurologic: + localized weakness; no gait abnormalit y, no generalized weakness, no tingling, no numbness, no tremor(s), no abnormal movements, no headache(s), no abnormal speech, no confusion and no memory loss Psychiatric: no depression, no irritability, no anxiety, no difficulty concentrating, no confusion and no hallucinations Endocrine: no fatigue and no flushing Hematologic / Lymphatic: no easy bleeding and no easy bruising Allergy / Immunological: no urticaria and no problem reported Exam (Neuro) Physical Exam: The patient is right-handed. The patient is awake, alert, and attentive. Speech is normal without any aphasia or dysarthria. Mentation and thought processes are intact, with full orientation and normal fund of knowledge. Mood and affect are normal and appropriate. Appearance and grooming are normal. Short and long-term memory are intact. Pupils are 4 mm bilaterally and reactive to light. Extraocular eye muscles are intact without nystagmus. Visual acuity and visual paulino seem normal grossly to confrontation. There are no deficits to sensation in the face in all 3 distributions of the fifth cranial nerve bilaterally. Corneal reflexes are positive bilaterally. Facial strength and symmetry was normal bilaterally. Hearing seems intact grossly to voice and finger rub bilaterally. Palate moves well without asymmetry. There is normal sternocleidomastoid and trapezius strength bilaterally. Tongue is midline with good strength bilaterally. Neck has a full range of motion without discomfort. There are no cervical bruits bilaterally. There are no cranial or ocular bruits. Heart is without murmur. There is a regular rhythm and rate. Cervical, thoracic, and lumbar spine are nontender to palpation. Gait is narrow based, with good arm swing, turns, and stance. Balance is normal eyes open and she sways a little bit with eyes closed. With outstretched arms there is very mild drift on the left. There are no resting, postural, or action tremors. There is no ataxia with finger to nose testing. There is good facility in the right hand and clumsiness on the left. No other abnormal involuntary movements are noted. Motor strength is 5/5 diffusely in the right upper extremity including deltoids, biceps, triceps, brachioradialis, wrist flexors and extensors, hadoop analyst, and intrinsic hand muscles. Strength is 4/5 diffusely in the left upper extremity. Motor strength is 5/5 diffusely in the legs bilaterally including hip flexors, quadriceps, hamstrings, gastrocnemius, tibialis anterior, tibialis posterior, and Peroneii muscles bilaterally. Toe extensors are normal and there is good bulk in the extensor digitorum brevis muscles bilaterally. The limbs have good tone without rigidity or spasticity. There is no atrophy noted in the muscles. Muscle bulk is normal, there is no tenderness to palpation, no myotonia to percussion, and no fasciculations seen. Sensory examination is intact to touch and pin throughout all 4 limbs diffusely. Reflexes are 2/4 in the biceps, triceps, brachioradialis, and quadriceps tendons bilaterally. Reflexes are absent in the Achilles tendons bilaterally. Toes are downgoing with plantar stimulation bilaterally. Peripheral pulses are present and of normal quality distally in all 4 limbs. There is no peripheral edema noted in the limbs. Results & Data Vital Signs (Past 12 Hours) Vital Signs Temp Pulse Pulse Resp BP BP Pulse Ox 05/28/23 08:11 36.8 C 65 18 175/94 H 98 05/28/23 07:41 56 L 05/28/23 03:45 36.7 C 65 18 119/76 93 05/28/23 00:04 64 05/28/23 00:03 36.6 C 69 17 208/107 H 96 O2 Del Method O2 Flow Rate 05/28/23 08:11 Nasal Cannula 2 05/28/23 07:41 05/28/23 03:45 Room Air 05/28/23 00:04 05/28/23 00:03 Room Air PG Care Time/CCT Total # of Minutes Spent Total Time Spent with Patient: Total time spent is greater than 50% in coordination of care (as documented) at patient's floor/unit and/or counseling patient: Coding Level of Care Code 07516 INT INP/OBS CARE 3/75MIN Diagnoses CVA (cerebral vascular accident) I63.9 CVA mechanism: unspecified Right carotid artery occlusion I65.21 Left arm weakness R29.898 Confusion R41.0 Hypertension I10 Hypertension type: unspecified Time Spent (min) 75 (1) CVA (cerebral vascular accident) CVA mechanism: unspecified Qualified Code(s): I63.9 - Cerebral infarction, unspecified (5) Hypertension Hypertension type: unspecified Qualified Code(s): I10 - Essential (primary) hypertension
--- NOTE | 2023-05-28 13:01 | Discharge Summary ---
Date of Service May 28, 2023 Admission HPI Per Admitting Provider The patient is a 62-year-old female with a past medical history including hyperlipidemia, rotator cuff fracture, osteoarthritis, history of drug abuse on Suboxone, peripheral neuropathy, lumbar radicular syndrome, hypertension, and tobacco abuse. She reports that she has been smoking more over the past weeks due to increased stress in her life. She denies any difficulty with swallowing or speech. she reports that she has had difficulty concentrating on work. She only takes her aspirin every once in a while, and reports having been started on rosuvastatin about a week ago and she has taken a couple of the pills. Her main symptoms are that of confusion and difficulty concentrating, and has difficulty holding objects in left arm. She reports that she continues to take her Suboxone 3 times a day as directed. Admission Exam Per Admitting Provider The patient is awake, mildly confused, normocephalic and atraumatic, lying in bed and in no acute distress. HEENT--PERRL, EOMI, mucous membranes and oropharynx mildly dry. Neck--supple. No JVD. No bruits. Thyroid normal, trachea midline, no adenopathy. Heart--normal S1 and S2. No murmurs, rubs or gallops. Lungs--clear bilaterally, no respiratory distress, no accessory muscle use. Abdomen--normal bowel sounds and soft. Nontender. Nondistended, no hernias or masses, no organomegaly. Extremities--no cyanosis or clubbing. No edema. NPO Dermatologic--normal skin turgor, normal color, no abnormal lymph nodes, no rash. Neurologic--cranial nerves II through XII grossly intact. Rheumatologic--normal range of motion. Psychiatric--normal affect. Principal Diagnosis Stroke Discharge Exam General:Alert and oriented, no acute distress, no slurred speech or facial droop, sitting up independently HEENT: Normocephalic, moist oral mucosa, Cardio: Regular rate and rhythm, no murmur, Resp:Lungs clear to auscultation b/l, no wheezes GI: Soft and nontender, nondistended, bowel sounds active Ext: product support rep strength 5/5 b/l with R strength > L. Skin: Warm, pink, dry, Psych: Mood-affect congruence. Discharge Data Allergies Allergy/AdvReac Type Severity Reaction Status Date / Time No Known Allergies Allergy Verified 12/31/23 15:09 Consultations 05/27/23 15:03 ED Decision to Admit Stat 05/27/23 18:01 Consult Neurology Routine Ordered Studies 05/27/23 12:48 CT head/brain wo con Stat 05/27/23 13:55 CT angio head w con Stat CT angio neck with con Stat 05/27/23 15:54 MRI Brain [MR brain wo con] Stat Hospital Course (1) CVA (cerebral vascular accident): (2) Hyperlipidemia: (3) History of drug abuse: (4) Hypertension: (5) Cigarette smoker: Plan Pt is a 62-year-old female with a past medical history of hyperlipidemia, history of drug abuse on Suboxone, peripheral neuropathy, lumbar radicular syndrome, hypertension, and tobacco abuse who presented to the hospital on 05/27/23 for stroke. Pt medically stable today. She states she has lingering symptoms of brain fog and while her strength in her L hand is good, her coordination is where she struggles. Feel it is appropriate at this point for pt to go home and receive OP PT/OT and f/u with [facility] to see if any interventions can be done in terms of her extensive vascular disease. Urged pt it is critical to stop smoking and pt understands. Stable to go home. Stroke/CVA - CT head showed right parietal encephalomalacia consistent with previous infarct, CTA head and neck showed extensive vascular disease, multiple areas of thrombosis, complete thrombosis of the right ICA from the bifurcation to the skull base, 50% focal stenosis at the origin of the left ICA, high-grade stenosis with focal near complete occlusion/trace flow in the left subclavian artery below the thoracic outlet - brain MRI showed large subacute right parietal lobe infarct as above - symptoms of loss of L hand coordination and brain fog started last - given aspirin 324 mg on admission, and then aspirin 81 mg daily - outside of range for tPA - neuro consulted: initiate clopidogrel and remain on both clopidogrel 75 mg and aspirin 81 mg daily for 3 weeks then switch to clopidogrel alone - will do aspirin + plavix and rosuvastatin 20 mg daily on discharge with OP PT/OT and nurse coordinator for [facility] OP f/u Hyperlipidemia - Rosuvastatin 10 mg daily to be increased to 20 mg on d/c HTN - BPs here have been permissible Nicotine dependence - pt smokes 1 ppd since age 15, lives alone so no one else in the house smokes - says she wants to quit because she hates the smell and taste but is just addicted to the nicotine - continue nicotine patch on d/c for smoking cessation History of drug abuse - Continue Suboxone sublingual home dose Total Time Total Time Spent Total Time Spent (In Minutes): >30 Discharge Plan Discharge Items Patient Disposition: Home - Self-Care Reason For Visit: CVA Discharge Diagnosis: Right sided stroke Activity: Per Instructions section Non-emergency contact: Primary Care Provider Call non-emergency contact if: you have any medication questions and your symptoms worsen Follow-up/Referrals: Akin Mcqueen DO [Primary Care Provider] - 06/04/23 1:00 pm Kandy Augustin MD [Physician] - Diet: Regular Addtl Attending Provider Instructions: You were admitted for brain fog/confusion and decreased left arm coordination. We did lab tests and some imaging and you were found to have had a stroke. You have been stable during your time at the hospital and we feel it is safe for you to go home with outpatient physical therapy and occupational therapy. It is CRITICAL that you stop smoking, especially after you have had a stroke. We have sent nicotine patches to your pharmacy along with the medications listed below. Please contact your PCP if you have trouble getting these. You may use nicotine gum if if you feel it may work better for you. Your primary care provider may also offer you other medication offers that you can take to help you quit smoking. It is also imperative that you take all your medications as prescribed. Do not miss any doses. Below, you will find a list of new medications or changes in m edications. Ultimately, it is most important after a stroke for you to take: - aspirin 81 mg for the next 3 weeks - Plavix(clopidogrel) 75 mg daily - rosuvastatin 20 mg daily You may stop the aspirin after 3 weeks. Do not stop your Plavix(clopidogrel) or rosuvastatin without talking to your provider first. Medications: Your medication list has been reviewed and reconciled upon discharge to ensure accuracy and continuity of care. An updated list of all your medications is included with your hospital discharge paperwork. Please review this list closely, and make note of any changes. We sent a new medication called Plavix(Clopidogrel) to your pharmacy. Take Plavix(Clopidogrel) 75 mg (1 tablet) daily. This is a blood thinner, which is crucial for those who have had a stroke to reduce their risk of having another stroke. We sent a new medication called Rosuvastatin to your pharmacy. Take Rosuvastatin 20 mg daily. This is an increase from your previous dose of 10 mg a day, so a new script has been sent to your pharmacy. Continue taking: Aspirin 81 mg daily. These medications have been sent to your pharmacy [facility]. Take your medications as instructed; do not skip a dose of your medicines. Make sure all of your doctors know every medicine you are taking (including qprq-taq-almxoxw medicines, vitamins, and supplements). Call your primary care provider before taking any new medicines (including over- the-counter medicines, vitamins, and supplements), because some of these may interact with your current medications, or may make your symptoms worse. Tell your primary care provider if you cannot afford your medications. Activity: You can do normal everyday activities as your body allows. Take rest breaks if you feel tired. Do not overexert. Stop activity if you have pain, shortness of breath or feel dizzy. Follow-up appointments: Make an appointment with your primary care physician within one week of discharge. A copy of this summary will be sent to them. Every time you see your primary care physician, or any other doctor, bring your medication list, and a list of questions. CONTACT YOUR PRIMARY CARE PROVIDER if you experience any of the following: Shortness of breath or difficulty breathing Swelling of your feet, ankles, hands or abdomen Feeling tired with normal activity or experiencing dizziness or fainting Difficulty following your treatment plan, or difficulty taking medications CALL 911 OR GO TO THE EMERGENCY DEPARTMENT if you experience any of the following: Severe abdominal pain or nausea/vomiting Severe chest pain, or chest pain that radiates (moves) to your jaw or arm Sudden weakness or slurred speech, or feeling like you may pass out Sudden, severe shortness of breath or difficulty breathing Thank you for allowing us to participate in your care. Pending Studies at Discharge: No Stand-Alone Forms: My [facility] [employer], Smoking Cessation Medications and DC Order Prescriptions: New nicotine [Nicoderm CQ] 21 mg/24 hr Patch 24 Hour 21 mg transdermal QAM Qty: 28 1RF Rx Instructions: May substitute for formulary rosuvastatin 20 mg tablet 20 mg PO DAILY Qty: 30 3RF clopidogrel 75 mg tablet 75 mg PO DAILY Qty: 30 3RF Continued aspirin [Nick Low Dose Aspirin] 81 mg tablet,delayed release (DR/EC) 81 mg PO BID 45 Days Qty: 90 0RF Rx Instructions: Take to prevent blood clots. gabapentin 600 mg tablet 600 mg PO TID PRN (Reason: Pain) Qty: 270 3RF meloxicam 15 mg tablet 15 mg PO DAILY buprenorphine-naloxone [Suboxone] 8-2 mg film 1 film sublingual TID Discontinued rosuvastatin 10 mg tablet 10 mg PO DAILY Qty: 90 3RF Discharge Orders: Discharge Order (Routine); Ordered 05/28/23 Ordered By: Enedelia Rodriguez/Other Patient Handouts: A1C, Smoking Get Help to Quit, Staying Smoke-Free, Stroke Regaining Movement, Stroke Self Care After, Stroke Prevention Activity Admission Data Admit Date/Time: 05/27/23 15:56 Attending Provider: Herberth Robles Admit Provider: Germain Durham Primary Care Provider: Akin Mcqueen Other Providers: Germain Durham; Yahir Drake Other Interventions: Discharge Summary Assessment (RN) Last Done: 05/28/23 14:51 Supervising Physician Co-Signing Physician Notes I personally examined the patient and verified all lyman points of history and exam, discussed case, and agree with decision making with Dr Stratton Feeling okay just difficulty with fine motor in her arm. Extensive discussion with patient, daughter about stroke, rehab, secondary risk reduction. Vitals noted, in general she is awake and alert pleasant no distress. HEENT normocephalic atraumatic mucous membranes moist. Arm discoordination noted. Fortunately essentially no other focal neurodeficits. See residents and neuro notes for more comprehensive details. Of note her last documented vitals prior to discharge or after I had seen her and I was on informed of these, although I suspect she was asymptomatic. Strokeappears to be large vessel atheroembolic with risks predominantly being smoking. Discussed smoke cessation. Discussed eating and exercise. Discussed dual antiplatelets. Discussed statin. Discussed ambulatory blood pressure monitoring/autoregulation/symptomatic hypertension versus asymptomatic elevations, and short-term goals versus long-term goals. Answered all questions the best my ability and to her/daughter's satisfaction. Safe/stable for home. Otherwise as above. Resident Activity Tracking Resident Involvement: Resident Care Provided Care Provided: [facility]
--- NOTE | 2023-05-28 14:05 | XCELERA ---
[id number] \\[email or web address]\[id number]
--- NOTE | 2023-05-28 14:31 | Electrocardiogram Report ---
Test Reason : Blood Pressure : / mmHG Vent. Rate : 071 BPM Atrial Rate : 071 BPM P-R Int : 156 ms QRS Dur : 082 ms QT Int : 382 ms P-R-T Axes : 028 010 038 degrees QTc Int : 415 ms Normal sinus rhythm Minimal voltage criteria for LVH, may be normal variant ( R in aVL ) Borderline ECG When compared with ECG of 17-JUL-2022 13:56, No significant change was found Confirmed by Errol Bustamante ([id number]) on 05/28/2023 2:31:00 PM Referred By: REFERRED SELF Confirmed By:Errol Bustamante
[2023-05-28] MEDS ORDERED: STROKE PATIENT DISCHARGE STA (14:35)
--- NOTE | 2023-05-28 17:56 | Billing Data ---
Date of Service May 28, 2023 Coding Level of Care Code 66250 SUB INP/OBS CARE
--- NOTE | 2023-05-28 17:57 | Billing Data ---
Date of Service May 28, 2023 Coding Level of Care Code 36240 INP/OBS DISCH >30 MIN Comment disregard 233 - entered in error, thx!
== END 2023-05-28 15:21 | disposition home or self-care (01) | DRG 65 ==
LOC: ED 12:34 → SUATTDRO 15:56 → EDINP 15:56 → 2S 18:02

== ENCOUNTER 2024-02-16 11:24 | Inpatient (IN) ==
--- OUTSIDE RECORDS SUMMARY | 2024-02-16 11:31 | External Medical Summary | Continuity of Care Document ---
Author Name Unknown Organization [facility] Address [address] [place] [id number] Care Team Providers Care Body Trimmer Upholsterer Name Role Phone Ahsan Willson Alyson Primary Care Physician [phone] Encounter [facility] [id number] Date(s): 12/12/23 - 12/12/[address] [id number] [phone] Discharge Disposition: Home or Self Care Attending Physician: MD Null Scott D Referring Physician: MD Null Scott D Allergies, Adverse Reactions, Alerts No Known Allergies Medications gabapentin Start: 06/13/23 2:33:00 PM EST Start Date: 06/13/23 Status: Ordered Plavix Start: 06/13/23 2:32:00 PM EST Start Date: 06/13/23 Status: Ordered Suboxone Start: 06/13/23 2:33:00 PM EST Start Date: 06/13/23 Status: Ordered Problem List Condition Confirmation Course Effective Dates Status Health St [facility] Informant H/O: stroke Confirmed Active Results Radiology Reports * Exam Date Time Procedure Performing Provider Status 12/12/23 5:35 PM VL Carotid Duplex Bilateral Abimael Eldridge in; Final Notes: (VL Carotid Duplex Bilateral) Reason For Exam: r carotid occlusion with stroke VL Carotid Duplex Bilateral [facility] FINAL REPORT Name: LUIS ALBERTO BERUMEN : 1960 Visit: [id number] Date: 12 Dec 2023 TYPE OF TEST: Cerebrovascular Duplex REASON FOR TEST Right carotid occlusion with stroke. INTERPRETATION/FINDINGS Arterial duplex exam of the extracranial cerebrovascular system reveals: 1. Known occlusion of the right internal carotid artery. 2. 60-69% stenosis of the left internal carotid artery; however, may be overestimated due to compensatory flow from contralateral occlusion. 3. >50% stenosis of the left external carotid artery. 4. No hemodynamically significant stenosis in the right external carotid artery. 5. >75% stenosis in the left subclavian artery with oscillating flow in the left vertebral artery, and greater than 25 mmHg between brachial pressures may suggest subclavian steal phenomenon. 6. Antegrade flow in the right vertebral artery. 7. Normal flow in the right subclavian artery. Plaque Morphology: 1. Complex, calcified plaque in the left bulb and internal carotid artery. No prior duplex for comparison; however right internal carotid artery occlusion was noted previously. (See powerchart note dated 06/13/2023). IMPRESSION/COMMENTS I have personally reviewed the data relevant to the interpretation of this study. TECHNOLOGIST: GANESH Zepeda, RVT PHYSICIAN: Leann Mitchell M.D. Signed: 12/12/2023 07:15 PM Final Dictated by:MD Mitchell Kristine L Dictated DT/TM:12/12/2023 7:15 Signed by:MD Mitchell Kristine L Signed (Electronic Signature):12/12/2023 7:15 p Transcribed by:PAT Social History Social History Type Response Smoking Status Former Smoker, quit within 31 days - 1 yr Sex Female Patient Care team information Care Team Personnel Name: MD Willson Dennis A Position: Referring DIRECT Member Role: Primary Care Provider Address: Address: [address] [place] [id number] Care Team Related Persons Name: LES ALBARADO Address: [address] [phone]
--- OUTSIDE RECORDS SUMMARY | 2024-02-16 11:31 | External Medical Summary | Continuity of Care Document ---
Author Name Unknown Organization [place] [address] [address] [place] [id number] Care Team Providers Care Dispatcher Maintenance Name Role Phone Ahsan Willson Primary Care Physician [phone] [id number] Date(s): 12/12/23 - 12/12/[address] [place] [address] [facility] [address] [place] [address] [phone] Discharge Disposition: Home or Self Care Attending Physician: MD Chaka, Bijan Mann Referring Physician: MD Willson Dennis A Allergies, Adverse Reactions, Alerts No Known Allergies Medications gabapentin Start: 06/13/23 2:33:00 PM EST Start Date: 06/13/23 Status: Ordered Plavix Start: 06/13/23 2:32:00 PM EST Start Date: 06/13/23 Status: Ordered Suboxone Start: 06/13/23 2:33:00 PM EST Start Date: 06/13/23 Status: Ordered Problem List Condition Confirmation Course Effective Dates Status Health St [facility] Informant H/O: stroke Confirmed Active Social History Social History Type Response Smoking Status Former Smoker, quit within 31 days - 1 yr Sex Female Patient Care team information Care Team Personnel Name: MD Willson Dennis A Position: Referring DIRECT Member Role: Primary Care Provider Address: Address: [address] [place] [address] [place] [id number] Care Team Related Persons Name: PER LES Address: home [address] [place] [phone]
--- NOTE | 2024-02-16 12:08 | Emergency Department Note ---
History of Present Illness General Chief complaint: Weakness Stated complaint: LEFT SIDED WEAKNESS Time Seen by Provider: 02/16/24 11:50 Source: patient, RN notes reviewed and old records reviewed (05/28/23-discharge summary for when the patient had a large stroke) Mode of arrival: ambulatory Limitations: no limitations History of Present Illness This patient is 63-year-old female who comes in after not feeling well for the last several days. She said that she had a stroke back in May and had left- sided weakness associated with that she said that that hot gotten better over the last couple days she feels more weak in the left arm and less degree left leg she just feels off she feels like she is some brain fog. She has had no fall or trauma. She has been taking her medications. Denies dysuria hematuria. She is feeling a little more winded than normal over the last week or so no cough. no chest pain or palpitation. she did quit smoking. No change in vision. No slurred speech. No blood or melena in her stool. She is on Plavix. Home Medications Medication Instructions Recorded Confirmed Type buprenorphine 8 mg-naloxone 2 mg 0 film sublingual TID 04/17/19 02/16/24 History sublingual film (Suboxone) clopidogrel 75 mg tablet 75 mg PO DAILY #90 tabs 06/14/23 02/16/24 Rx rosuvastatin 20 mg tablet 20 mg PO DAILY #90 tabs 06/14/23 02/16/24 Rx gabapentin 600 mg tablet 0 mg PO TID PRN Pain 02/16/24 02/16/24 History gabapentin 800 mg tablet 800 mg PO UD 02/16/24 02/16/24 History Allergies Allergy/AdvReac Type Severity Reaction Status Date / Time No Known Allergies Allergy Verified 12/05/23 13:02 Past Med/Surg History Problem List (Updated 02/16/24 @ 19:10 by Yahir Hewitt MD) Brain fog (Acute) History of cardioembolic cerebrovascular accident (CVA) (Acute) 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/antiplatelets (Acute) History of tobacco abuse Stroke-like symptoms Weakness (Acute) Aortic regurgitation mild-moderate 05/2023 echo Prediabetes History of CVA (cerebrovascular accident) Peripheral arterial occlusive disease Right carotid artery occlusion Left arm weakness (Acute) Hypertension (Acute) Hyperlipidemia Status post total left knee replacement Osteoarthritis of left knee History of drug abuse Neuropathy Lumbar radicular syndrome Right rotator cuff tear Hypertension Decreased libido Cigarette smoker Burton of foot Chronic pain of left knee Medical History CVA (cerebral vascular accident) Hx of drug abuse per medical record-prescription pain killers following surgery; stopped using 4 years ago History of anxiety Hx of chest pain "get it 2-3 times per year, found to be from anxiety" Tobacco use 1 pack per day Encounter for pre-operative examination Chronic pain Pneumonia of both lower lobes 04/2022, not hospitalized; resolved. Surgical History History of removal of cyst NECK, FOREHEAD History of arthroscopic knee surgery BL History of laparoscopic cholecystectomy 04/17/19 Grade 1 view, MAC 3, ETT 7. Family History Mother Hypertension Heart disease Father , age 81 of an [place] Hypertension Heart disease Other No family history of adverse response to anesthesia Denies family history of Ovarian cancer Breast cancer Colorectal cancer Social History Smoking Status: Current some day smoker Tobacco Type: Cigarettes Age Started Using Tobacco: 15; Age Quit Using Tobacco: 62; packs per day: 1; Cigarettes Per Day: 20; Second Hand Exposure: No; Do You Dip or Chew Tobacco: No; Tobacco Cessation Education Requested by Patient: No Hx Alcohol Use: No Hx Substance Use: No Preferred Language: Tamazight Communication Ability: Effective Visual Impairment: No Limitations Hearing Ability: Normal Technical Solutions Director Required: No Beliefs That Will Affect Care: None marital status: Current Living Situation: Alone Current Living Situation Comment: Living alone current occupational status: unemployed 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 Other Information That Helps Us Care for You: No Feels Safe at Home: Yes Safety Concerns: Feels Safe At This Time Safety Concerns Comment: Patient feels confused, unsteady, and is unable to care for herself Childhood Exposure to Second-Hand Smoke: Yes Diet: regular caffeine: Yes Dental Care, Regularly: No Physical Activity Frequency: Daily Seatbelt Use: always Assistive Devices: None Review of Systems A total of 10 systems reviewed and were otherwise negative Physical Exam Vital Signs Vital Signs - 24 hr 02/16/24 11:26 02/16/24 11:53 02/16/24 11:57 Temperature 36.6 C Temperature Source Temporal Artery Scan Pulse Rate 73 76 Pulse Rate from SpO2 Sensor 76 Respiratory Rate 18 18 Respiratory Depth Normal Blood Pressure 201/97 H 209/117 H Blood Pressure Mean 131 139 Pulse Oximetry 97 97 Oxygen Delivery Method Room Air Sepsis Recent Fever Within 48 Hours No Sepsis New/Unexplained Change in Mental Status No Sepsis Action Taken by Nursing No Action Required 02/16/24 12:00 02/16/24 12:03 02/16/24 12:24 Temperature Temperature Source Pulse Rate 65 69 Pulse Rate from SpO2 Sensor 65 Respiratory Rate 21 23 Respiratory Depth Blood Pressure 190/101 H Blood Pressure Mean 153 Pulse Oximetry 92 Oxygen Delivery Method Room Air Sepsis Recent Fever Within 48 Hours Sepsis New/Unexplained Change in Mental Status Sepsis Action Taken by Nursing 02/16/24 12:30 02/16/24 12:36 02/16/24 12:48 Temperature Temperature Source Pulse Rate 67 66 Pulse Rate from SpO2 Sensor 68 Respiratory Rate 23 20 Respiratory Depth Blood Pressure 189/116 H Blood Pressure Mean 163 Pulse Oximetry 99 Oxygen Delivery Method Room Air Sepsis Recent Fever Within 48 Hours Sepsis New/Unexplained Change in Mental Status Sepsis Action Taken by Nursing 02/16/24 13:19 02/16/24 13:21 02/16/24 13:27 Temperature Temperature Source Pulse Rate 62 62 Pulse Rate from SpO2 Sensor 61 63 Respiratory Rate 18 18 Respiratory Depth Blood Pressure 148/115 H Blood Pressure Mean 131 Pulse Oximetry 97 92 Oxygen Delivery Method Room Air Room Air Sepsis Recent Fever Within 48 Hours Sepsis New/Unexplained Change in Mental Status Sepsis Action Taken by Nursing 02/16/24 13:30 02/16/24 13:42 Temperature Temperature Source Pulse Rate 59 L Pulse Rate from SpO2 Sensor 59 L Respiratory Rate 14 Respiratory Depth Blood Pressure 175/98 H Blood Pressure Mean 121 Pulse Oximetry 94 Oxygen Delivery Method Room Air Sepsis Recent Fever Within 48 Hours Sepsis New/Unexplained Change in Mental Status Sepsis Action Taken by Nursing General: Well developed well nourished older female who appears in no acute distress, breathing comfortably on room air. Normal speech HEENT: Normal cephalic atraumatic. Pupils are equal round and reactive to light. Extraocular movements are intact. Oropharynx is pink with moist mucous membranes. No swelling of the mouth lips or tongue. Neck: Supple with a midline trachea. No meningeal signs or stiffness, no JVD or bruits. No Stridor. Chest: Clear to auscultation bilaterally. No wheezes or rhonchi. No increased work of breathing. Heart: Regular rate and rhythm without murmurs or gallops. Abdomen: Soft nontender, nondistended without rebound guarding or rigidity. Extremities: No cyanosis clubbing or edema. No calf tenderness or assymetry Spine/Back. Non tender to palpation. No CVA tenderness Skin: Good turgor without rashes. Neurologic exam: Cranial nerves two through 12 are intact. She does have good manager user experience strength on the left however she seems weaker more in the proximal arm. She says this is different than normal. Her left leg strength appears to be intact but she says she feels weaker on than normal. Course Administered Medications Nicotine (Nicotine 21 Mg/24 Hr Tdsy) 1 patch TD QAM [facility] Stop: 03/17/24 14:44 Last Admin: 02/16/24 18:10 Dose: 1 patch Documented By: KAVITHA Discontinued Medications Aspirin (Aspirin Chew 324 Mg) 324 mg PO NOW STA Stop: 02/16/24 14:22 Last Admin: 02/16/24 18:04 Dose: 324 mg Documented By: KAVITHA Buprenorphine/Naloxone (Buprenorphine/Naloxone 8/2 Mg Tab) 1 tab SL 1425 [facility] Stop: 02/16/24 18:00 Last Admin: 02/16/24 18:18 Dose: 1 tab Documented By: KAVITHA Clopidogrel Bisulfate (Clopidogrel Bisulfate 75 Mg Tab) 75 mg PO NOW ONE Stop: 02/16/24 14:22 Last Admin: 02/16/24 18:05 Dose: 75 mg Documented By: KAVITHA Gabapentin (Gabapentin 600 Mg Tab) 600 mg PO NOW STA Stop: 02/16/24 14:28 Last Admin: 02/16/24 18:07 Dose: 600 mg Documented By: KAVITHA Sodium Chloride (Nss) 500 mls @ 999 mls/hr IV .Q31M ONE Stop: 02/16/24 12:31 Last Infusion: 02/16/24 14:09 Dose: Infused Documented By: Admin: 02/16/24 12:29 Dose: 999 mls/hr Documented By: LINA Calcium Gluconate () 1,000 mg in 60 mls @ 240 mls/hr IV NOW STA Stop: 02/16/24 15:01 Last Infusion: 02/16/24 18:31 Dose: Infused Documented By: Admin: 02/16/24 18:15 Dose: 240 mls/hr Documented By: KAVITHA Ioversol (Optiray 320 125ml) 119 ml IV ONCE ONE Stop: 02/16/24 13:02 Last Admin: 02/16/24 13:01 Dose: 119 ml Documented By: CONSUELO Rosuvastatin Calcium (Rosuvastatin Calcium 20 Mg Tab) 40 mg PO NOW STA Stop: 02/16/24 14:24 Last Admin: 02/16/24 18:06 Dose: 40 mg Documented By: KAVITHA Medical Decision Making Differential Diagnosis Stroke, intracranial hemorrhage, electrolyte or metabolic abnormality, infection, hypertension, cardiac disease Medical Records Attestation: I reviewed the patient's medical records. Home Medications Current Medication List: was personally reviewed by me Laboratory Data Attestation: I reviewed the patient's lab results. 02/16/24 11:55 02/16/24 11:55 Lab Results 02/16/24 02/16/24 Range/Units 11:55 12:39 WBC 6.53 (4.8-10.8) K/ul RBC 4.54 (4.20-5.40) M/uL Hgb 13.5 (12.0-16.0) g/dl POC Hgb 13.6 (12.0-16.0) g/dl Hct 40.0 (37.0-47.0) % POC Hct 40 (37-47) % MCV 88.1 (80.0-100.0) fL MCH 29.7 (25.0-34.0) pg MCHC 33.8 (32.0-36.0) g/dL RDW Std Deviation 39.9 (36.4-46.3) fL RDW Coeff of Hayley 12.4 (11.5-14.5) % Plt Count 223 (130-400) K/uL MPV 8.6 L (9.4-12.4) fL Immature Gran % (Auto) 0.3 % Neut % (Auto) 62.1 % Lymph % (Auto) 29.2 % Surry % (Auto) 7.0 % Eos % (Auto) 0.8 % Baso % (Auto) 0.6 % Neut # (Auto) 4.05 (1.40-6.50) K/uL Lymph # (Auto) 1.91 (1.20-3.40) K/uL Surry # (Auto) 0.46 (0.11-0.59) K/uL Eos # (Auto) 0.05 (0.00-0.50) K/uL Baso # (Auto) 0.04 (0.00-0.20) K/uL Immature Gran # (Auto) 0.02 (0.01-0.20) K/uL PT 11.1 (9.0-12.0) Seconds INR 1.0 (0.9-1.1) APTT 25 (21-31) Seconds PTT Ratio 0.9 POC Sodium 138 (135-144) mmol/L Sodium 140 (136-145) mmol/L POC Potassium 4.3 (3.3-5.0) mmol/L Potassium 3.8 (3.5-5.1) mmol/L POC Chloride 104 (101-112) mmol/L Chloride 102 (98-107) mmol/L Carbon Dioxide 30 (21-32) mmol/L POC Total CO2 25 (24-31) mmol/L Anion Gap 8 (3-11) POC Anion Gap 15.0 L (16-25) mmol/L POC BUN 10 (7-18) mg/dl BUN 11 (6-23) mg/dl Creatinine 0.67 (0.6-1.2) mg/dl POC Creatinine 0.5 L (0.6-1.3) mg/dl Est Cr Clr Drug Dosing Not Reportable Est GFR ( Amer) 108.4 ml/min Est GFR (Non-Af Amer) 93.5 ml/min BUN/Creatinine Ratio 16.4 (10-20) Glucose 103 H (70-99(Fasting)) mg/dl POC Glucose (other) 101 H (70-99) mg/dl Calcium 9.6 (8.6-10.3) mg/dl POC Ioniz Calcium Jacek 1.07 L (1.12-1.32) mmol/l Magnesium 2.0 (1.7-2.4) mg/dl Total Bilirubin 0.6 (0.2-1.0) mg/dl AST 17 (13-39) U/L ALT 15 (7-52) U/L Alkaline Phosphatase 88 (34-104) U/L Troponin I High Sens 13.1 (0-14) pg/ml Total Protein 7.7 (6.0-8.3) gm/dl Albumin 4.5 (3.4-5.0) gm/dl Globulin 3.2 (2.5-4.0) gm/dl Albumin/Globulin Ratio 1.4 (0.9-2) Urine Opiates Screen Neg (Neg) Ur Methadone, Qual Neg (Neg) Urine Fentanyl Screen Neg (Neg) Urine Barbiturates Neg (Neg) Ur Phencyclidine (PCP) Neg (Neg) U Amphetamin/Meth Scrn Neg (Neg) MDMA (Ecstasy) Screen Neg (Neg) U Benzodiazepines Scrn Neg (Neg) Ur Cocaine Metabolite Neg (Neg) U Marijuana (THC) Screen Neg (Neg) Imaging Data Attestation: I personally reviewed and interpreted this imaging study as follows: My Impression: Head CTno hemorrhage or mass effect seen Chest x-rayno acute infiltrate, failure, pneumothorax Radiologist's Impression: Head CT 02/16/24 12:00 CT angio head w con, CT head/brain wo con, CT angio neck with con CLINICAL HISTORY: 63 years-old Female with neuro deficit, acute stroke suspected. Acute stroke like symptoms COMPARISON STUDY: Brain MRI 05/09/2023, head CT, CTA head and neck 05/27/2023 TECHNIQUE: Unenhanced axial CT scan of the brain is performed. Subsequently, following the IV administration of Optiray, CT angiogram of the head and neck was performed. Images are reviewed in the axial, sagittal, and coronal planes. 3-D MIPS images are created and assessed. IV contrast was administered without complication. All measurements were obtained according to NASCET criteria. A dose lowering technique was utilized adhering to the principles of ALARA. CT DOSE: 1278.06 mGy.cm FINDINGS: CT BRAIN: Large chronic area of encephalomalacia from chronic infarct involves the superior right parietal lobe on image 21 series 2. Interval development of an acute versus subacute infarct within the posterior right cerebrum on image 15 series 2 measuring 4.4 cm involving the right parieto-occipital lobe. There is an additional ill-defined area of decreased attenuation within the right frontal lobe on image 17 series 2 measuring 4.2 cm which is new from prior. There is no acute intracranial hemorrhage, midline shift, hydrocephalus, intra- axial mass mass, or abnormal extra-axial collections. No abnormal intra-axial or extra-axial enhancement. Mastoid air cells and middle ear cavities are clear. No calvarial fracture. Paranasal sinuses are clear. CT ANGIOGRAM OF THE HEAD AND NECK: Three-vessel morphology of the thoracic aortic arch. High-grade stenosis with kinking and atherosclerosis of the left clip in the artery on image 95 series 6 is unchanged. The common carotid arteries are patent. Atherosclerosis of the left carotid bulb again noted resulting in less than 50% stenosis. Prominent atheromatous plaque of the right carotid bulb and proximal cervical segment right ICA redemonstrated with complete thrombosis again noted involving the majority of the right ICA with reconstitution of flow again noted within the supraclinoid segment, via the seminole of [place], similar to prior. Moderate multifocal stenoses noted throughout the distal branches of the left middle cerebral artery. Cerebral venous sinuses are patent. The anterior cerebral arteries appear patent. No acute proximal middle cerebral artery thrombus identified on the right. The right MCA is diminutive compared to the left and there is attenuation of the distal and 3 branches. Chronic occlusion of the V1 and proximal V2 segments of the left vertebral artery with minimal reconstitution of flow again noted within the V2 segment level of C4-C5. Unchanged mild to moderate multifocal stenoses throughout the right vertebral artery with. Appearance again seen within the V3 segment. The majority of the right vertebral artery terminates into the right PICA. origin of the right posterior cerebral artery. The lung apices appear clear. No pneumothorax. No lymphadenopathy. No acute fracture identified. IMPRESSION: 1. There are acute to subacute appearing right frontal and parieto-occipital infarcts as above. 2. No acute intracranial hemorrhage or midline shift. 3. Stable appearance of the CTA head and neck compared to the study from 05/27/2023. 4. Complete thrombosis is again noted involving the majority of the right ICA with reconstitution of flow in the supraclinoid segment through the seminole of [place]. 5. 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 6. Chronic right parietal infarct. ACT 112: Negative or not required by law. The above report was generated using voice recognition software. It may contain grammatical, syntax or spelling errors. Electronically signed by: Luis Barnes M.D. 02/16/2024 1:35 PM Head CTA 02/16/24 12:00 CT angio head w con, CT head/brain wo con, CT angio neck with con CLINICAL HISTORY: 63 years-old Female with neuro deficit, acute stroke suspected. Acute stroke like symptoms COMPARISON STUDY: Brain MRI 05/09/2023, head CT, CTA head and neck 05/27/2023 TECHNIQUE: Unenhanced axial CT scan of the brain is performed. Subsequently, following the IV administration of Optiray, CT angiogram of the head and neck was performed. Images are reviewed in the axial, sagittal, and coronal planes. 3-D MIPS images are created and assessed. IV contrast was administered without complication. All measurements were obtained according to NASCET criteria. A dose lowering technique was utilized adhering to the principles of ALARA. CT DOSE: 1278.06 mGy.cm FINDINGS: CT BRAIN: Large chronic area of encephalomalacia from chronic infarct involves the superior right parietal lobe on image 21 series 2. Interval development of an acute versus subacute infarct within the posterior right cerebrum on image 15 series 2 measuring 4.4 cm involving the right parieto-occipital lobe. There is an additional ill-defined area of decreased attenuation within the right frontal lobe on image 17 series 2 measuring 4.2 cm which is new from prior. There is no acute intracranial hemorrhage, midline shift, hydrocephalus, intra- axial mass mass, or abnormal extra-axial collections. No abnormal intra-axial or extra-axial enhancement. Mastoid air cells and middle ear cavities are clear. No calvarial fracture. Paranasal sinuses are clear. CT ANGIOGRAM OF THE HEAD AND NECK: Three-vessel morphology of the thoracic aortic arch. High-grade stenosis with kinking and atherosclerosis of the left clip in the artery on image 95 series 6 is unchanged. The common carotid arteries are patent. Atherosclerosis of the left carotid bulb again noted resulting in less than 50% stenosis. Prominent atheromatous plaque of the right carotid bulb and proximal cervical segment right ICA redemonstrated with complete thrombosis again noted involving the majority of the right ICA with reconstitution of flow again noted within the supraclinoid segment, via the seminole of [place], similar to prior. Moderate multifocal stenoses noted throughout the distal branches of the left middle cerebral artery. Cerebral venous sinuses are patent. The anterior cerebral arteries appear patent. No acute proximal middle cerebral artery thrombus identified on the right. The right MCA is diminutive compared to the left and there is attenuation of the distal and 3 branches. Chronic occlusion of the V1 and proximal V2 segments of the left vertebral artery with minimal reconstitution of flow again noted within the V2 segment level of C4-C5. Unchanged mild to moderate multifocal stenoses throughout the right vertebral artery with. Appearance again seen within the V3 segment. The majority of the right vertebral artery terminates into the right PICA. origin of the right posterior cerebral artery. The lung apices appear clear. No pneumothorax. No lymphadenopathy. No acute fracture identified. IMPRESSION: 1. There are acute to subacute appearing right frontal and parieto-occipital infarcts as above. 2. No acute intracranial hemorrhage or midline shift. 3. Stable appearance of the CTA head and neck compared to the study from 05/27/2023. 4. Complete thrombosis is again noted involving the majority of the right ICA with reconstitution of flow in the supraclinoid segment through the seminole of [place]. 5. 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 6. Chronic right parietal infarct. ACT 112: Negative or not required by law. The above report was generated using voice recognition software. It may contain grammatical, syntax or spelling errors. Electronically signed by: Luis Barnes M.D. 02/16/2024 1:35 PM Neck CTA 02/16/24 12:00 CT angio head w con, CT head/brain wo con, CT angio neck with con CLINICAL HISTORY: 63 years-old Female with neuro deficit, acute stroke suspected. Acute stroke like symptoms COMPARISON STUDY: Brain MRI 05/09/2023, head CT, CTA head and neck 05/27/2023 TECHNIQUE: Unenhanced axial CT scan of the brain is performed. Subsequently, following the IV administration of Optiray, CT angiogram of the head and neck was performed. Images are reviewed in the axial, sagittal, and coronal planes. 3-D MIPS images are created and assessed. IV contrast was administered without complication. All measurements were obtained according to NASCET criteria. A dose lowering technique was utilized adhering to the principles of ALARA. CT DOSE: 1278.06 mGy.cm FINDINGS: CT BRAIN: Large chronic area of encephalomalacia from chronic infarct involves the superior right parietal lobe on image 21 series 2. Interval development of an acute versus subacute infarct within the posterior right cerebrum on image 15 series 2 measuring 4.4 cm involving the right parieto-occipital lobe. There is an additional ill-defined area of decreased attenuation within the right frontal lobe on image 17 series 2 measuring 4.2 cm which is new from prior. There is no acute intracranial hemorrhage, midline shift, hydrocephalus, intra- axial mass mass, or abnormal extra-axial collections. No abnormal intra-axial or extra-axial enhancement. Mastoid air cells and middle ear cavities are clear. No calvarial fracture. Paranasal sinuses are clear. CT ANGIOGRAM OF THE HEAD AND NECK: Three-vessel morphology of the thoracic aortic arch. High-grade stenosis with kinking and atherosclerosis of the left clip in the artery on image 95 series 6 is unchanged. The common carotid arteries are patent. Atherosclerosis of the left carotid bulb again noted resulting in less than 50% stenosis. Prominent atheromatous plaque of the right carotid bulb and proximal cervical segment right ICA redemonstrated with complete thrombosis again noted involving the majority of the right ICA with reconstitution of flow again noted within the supraclinoid segment, via the seminole of [place], similar to prior. Moderate multifocal stenoses noted throughout the distal branches of the left middle cerebral artery. Cerebral venous sinuses are patent. The anterior cerebral arteries appear patent. No acute proximal middle cerebral artery thrombus identified on the right. The right MCA is diminutive compared to the left and there is attenuation of the distal and 3 branches. Chronic occlusion of the V1 and proximal V2 segments of the left vertebral artery with minimal reconstitution of flow again noted within the V2 segment level of C4-C5. Unchanged mild to moderate multifocal stenoses throughout the right vertebral artery with. Appearance again seen within the V3 segment. The majority of the right vertebral artery terminates into the right PICA. origin of the right posterior cerebral artery. The lung apices appear clear. No pneumothorax. No lymphadenopathy. No acute fracture identified. IMPRESSION: 1. There are acute to subacute appearing right frontal and parieto-occipital infarcts as above. 2. No acute intracranial hemorrhage or midline shift. 3. Stable appearance of the CTA head and neck compared to the study from 05/27/2023. 4. Complete thrombosis is again noted involving the majority of the right ICA with reconstitution of flow in the supraclinoid segment through the seminole of [place]. 5. 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 6. Chronic right parietal infarct. ACT 112: Negative or not required by law. The above report was generated using voice recognition software. It may contain grammatical, syntax or spelling errors. Electronically signed by: Luis Barnes M.D. 02/16/2024 1:35 PM Chest X-Ray 02/16/24 12:08 XR chest 1V portable HISTORY: 63 years-old Female sob acute shortness of breath COMPARISON: 06/13/2023 TECHNIQUE: AP view of the chest FINDINGS: Cardiomediastinal and hilar silhouettes are within normal limits. No pneumothorax, pleural effusion or airspace consolidation. Bones appear intact. IMPRESSION: No acute process. ACT 112: Negative or not required by law. The above report was generated using voice recognition software. It may contain grammatical, syntax or spelling errors. Electronically signed by: Luis Barnes M.D. 02/16/2024 12:20 PM ECG Data Attestation: I personally reviewed and interpreted this ECG as follows: Indication: + weakness Rate (beats per minute): 69 Rhythm: + normal sinus ECG Intervals/blocks: + Normal QRS, + Normal QT and + Normal [place] ECG [place]: + Normal ECG ST segments: + Normal ST segments ECG Findings: no PACs or no PVCs Comparison ECG Date: from (06/13/23) Change: no significant change MDM Narrative This patient comes in as described above. She was placed in room B5. She is has complaints of weakness is not feeling well is been going on for several days and she was therefore outside the window for thrombolytics or acute intervention. Her symptoms are somewhat vague. She does feel she is weaker on her left side than at baseline. She also feels a little bit short of breath. She is not hypoxemic. Her blood pressure was noted to be elevated. IV access was established. she was hydrated with an IV normal saline bolus. I did order a full stroke type workup as well as a cardiac workup. She was reassessed frequently. she was placed on a manager monitoring. Her blood work was unremarkable. CAT scan was unremarkable as was CT angiography of the neck. Based on her increasing weakness however I am concerned that she could have had another stroke or extension. I talked to both the patient and her mother who is at the bedside at length and I have consulted the [facility] hospitalist to see her in the ER for admission/observation. 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
[2024-02-16 12:12] LABS: Basophils # (auto) 0.04 K/uL (0.00-0.20); Basophils % (auto) 0.6 %; Eosinophils # (auto) 0.05 K/uL (0.00-0.50); Eosinophils % (auto) 0.8 %; Hemoglobin 13.5 g/dl (12.0-16.0); Immature Granulocytes # (auto) 0.02 K/uL (0.01-0.20); Immature Granulocytes % (auto) 0.3 %; Lymphocytes # (auto) 1.91 K/uL (1.20-3.40); Lymphocytes % (auto) 29.2 %; Mean Corpuscular Hemoglobin 29.7 pg (25.0-34.0); Mean Corpuscular Hgb Conc 33.8 g/dL (32.0-36.0); Mean Corpuscular Volume 88.1 fL (80.0-100.0); Mean Platelet Volume 8.6 fL (9.4-12.4); Monocytes # (auto) 0.46 K/uL (0.11-0.59); Neutrophils # (auto) 4.05 K/uL (1.40-6.50); Neutrophils % (auto) 62.1 %; Platelet Count 223 K/uL (130-400); RDW Coefficient of Variation 12.4 % (11.5-14.5); RDW Standard Deviation 39.9 fL (36.4-46.3); Red Blood Count 4.54 M/uL (4.20-5.40); White Blood Count 6.53 K/ul (4.8-10.8)
--- NOTE | 2024-02-16 12:21 | XRay Report ---
XR chest 1V portable HISTORY: 63 years-old Female sob acute shortness of breath COMPARISON: 06/13/2023 TECHNIQUE: AP view of the chest FINDINGS: Cardiomediastinal and hilar silhouettes are within normal limits. No pneumothorax, pleural effusion o r airspace consolidation. Bones appear intact. IMPRESSION: No acute process. ACT 112: Negative or not required by law. The above report was generated using voice recognition software. It may contain grammatical, syntax o r spelling errors. Electronically signed by: Luis Barnes M.D. 02/16/2024 12:20 PM
[2024-02-16] MEDS: SODIUM CHLORIDE 0.9% 500 ML IV ONE (12:29)
[2024-02-16 12:35] LABS: Alanine Aminotransferase 15 U/L (7-52); Albumin Globulin Ratio 1.4 (0.9-2); Albumin Level 4.5 gm/dl (3.4-5.0); Alkaline Phosphatase 88 U/L (34-104); Anion Gap 8 (3-11); Aspartate Aminotransferase 17 U/L (13-39); BUN Creatinine Ratio 16.4 (10-20); Bilirubin,Total 0.6 mg/dl (0.2-1.0); Blood Urea Nitrogen 11 mg/dl (6-23); Calcium 9.6 mg/dl (8.6-10.3); Carbon Dioxide 30 mmol/L (21-32); Chloride 102 mmol/L (98-107); Est GFR (African American) 108.4 ml/min; Est GFR (Non-African American) 93.5 ml/min; Globulin 3.2 gm/dl (2.5-4.0); Glucose 103 mg/dl (70-99(Fasting)); Potassium 3.8 mmol/L (3.5-5.1); Sodium 140 mmol/L (136-145); Total Protein 7.7 gm/dl (6.0-8.3)
[2024-02-16 12:38] LABS: Partial Thromboplastin Ratio 0.9; Partial Thromboplastin Time 25 Seconds (21-31); Prothrombin Time 11.1 Seconds (9.0-12.0)
[2024-02-16 12:41] LABS: Troponin I High Sensitivity 13.1 pg/ml (0-14)
[2024-02-16 12:53] LABS: iSTAT Creatinine 0.5 mg/dl (0.6-1.3); iSTAT Hemoglobin 13.6 g/dl (12.0-16.0); iSTAT Ionized Calcium 1.07 mmol/l (1.12-1.32); iSTAT Potassium 4.3 mmol/L (3.3-5.0)
[2024-02-16] MEDS: OPTIRAY 320 125ml IV ONE (13:01)
--- NOTE | 2024-02-16 13:37 | CT Scan Report ---
CT angio head w con, CT head/brain wo con, CT angio neck with con CLINICAL HISTORY: 63 years-old Female with neuro deficit, acute stroke suspected. Acute stroke lik e symptoms COMPARISON STUDY: Brain MRI 05/09/2023, head CT, CTA head and neck 05/27/2023 TECHNIQUE: Unenhanced axial CT scan of the brain is performed. Subsequently, following the IV adminis tration of Optir[employer], CT angiogram of the head and neck was performed. Images are reviewed in the axial , sagittal, and coronal planes. 3-D MIPS images are created and assessed. IV contrast was administere d without complication. All measurements were obtained according to NASCET criteria. A dose lowering technique was utilized adhering to the principles of ALARA. CT DOSE: 1278.06 mGy.cm FINDINGS: CT BRAIN: Large chronic area of encephalomalacia from chronic infarct involves the superior right parietal lobe on image 21 series 2. Interval development of an acute versus subacute infarct within the posterior right cerebrum on image 15 series 2 measuring 4.4 cm involving the right parieto-occipital lobe. Ther e is an additional ill-defined area of decreased attenuation within the right frontal lobe on image 1 7 series 2 measuring 4.2 cm which is new from prior. There is no acute intracranial hemorrhage, midline shift, hydrocephalus, intra-axial mass mass, or ab normal extra-axial collections. No abnormal intra-axial or extra-axial enhancement. Mastoid air cell s and middle ear cavities are clear. No calvarial fracture. Paranasal sinuses are clear. CT ANGIOGRAM OF THE HEAD AND NECK: Three-vessel morphology of the thoracic aortic arch. High-grade stenosis with kinking and atheroscler osis of the left clip in the artery on image 95 series 6 is unchanged. The common carotid arteries ar e patent. Atherosclerosis of the left carotid bulb again noted resulting in less than 50% stenosis. 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 Moderate multifocal stenoses noted throughout the distal branches of the left middle cerebral artery . Cerebral venous sinuses are patent. The anterior cerebral arteries appear patent. No acute proximal middle cerebral artery thrombus identified on the right. The right MCA is diminutive compared to the left and there is attenuation of the distal and 3 branches. 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 Unchanged mild to moderate multifo harper stenoses throughout the right vertebral artery with. Appearance again seen within the V3 segment. The majority of the right vertebral artery terminates into the right PICA. origin of the right posterior cerebral artery. The lung apices appear clear. No pneumothorax. No lymphadenopathy. No acute fracture identified. IMPRESSION: 1. There are acute to subacute appearing right frontal and parieto-occipital infarcts as above. 2. No acute intracranial hemorrhage or midline shift. 3. Stable appearance of the CTA head and neck compared to the study from 05/27/2023. 4. 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 5. 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 6. Chronic right parietal infarct. ACT 112: Negative or not required by law. The above report was generated using voice recognition software. It may contain grammatical, syntax o r spelling errors. Electronically signed by: Luis Barnes M.D. 02/16/2024 1:35 PM
--- NOTE | 2024-02-16 14:06 | History & Physical Report ---
Date of Service February 16, 2024 Assessment & Plan (1) Stroke-like symptoms: Plan: Admit to the PCU on telemetry and pulse oximetry Currently stable nontoxic-appearing Presented to the ED with approximately 48 hours of increased weakness in the left upper extremity and intermittent confusion Patient has a history of previous CVA with known completely occluded right ICA and mildly occluded left ICA, history of significant atherosclerotic disease On exam patient has significant weakness in the left upper extremity compared to right but is otherwise without focal defects compared to baseline CT of the head and brain without contrast, CT of the head, and CTA of the neck show acute to subacute appearing right frontal and parietaloccipital infarcts but was otherwise negative for acute findings Suspect the patient is having recurrent CVA's due to her known history of severe atherosclerotic disease and previous tobacco abuse Will give the 124 mg aspirin, 75 mg Plavix, and 40 mg Crestor now Will allow permissive hypertension until MRI of the brain without contrast is back Will obtain TTE, every 4 hours neurochecks, fall/aspiration precautions Bilateral SCDs for DVT prophylaxis Heart healthy diet with 2 g sodium restriction if she passes her dysphagia screen AM CBC, CMP, mag, PT/INR, fasting lipid panel, hemoglobin A1c (2) Hypertension: Plan: Patient was noted to be hypertensive with systolic blood pressure in the 200s on arrival Currently hypertensive at 175/98 without intervention prior to admission Will allow permissive hypertension until MRI brain without contrast results are back in case she did not fact have acutesubacute CVA (3) Hyperlipidemia: Plan: Patient is normally on 20 mg Crestor daily For now we will increase to 40 mg daily until fasting the panel will morning is back (4) History of drug abuse: Plan: Will continue 3 times daily sublingual buprenorphine 8/2 mg Continue gabapentin Will add urine drug screen due for UA to rule out other possible causes of odd behavior noted during exam (5) History of tobacco abuse: Plan: Continue nicotine patch and gum Continue to encourage ongoing smoking cessation Plan The patient was discussed with Dr. 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 On arrival to the ED she was noted to be hypertensive at 201/97 but otherwise stable. Labs including CBC, CMP, high- sensitivity troponin were unremarkable. Chest x-ray was read as unremarkable. CT of the head and brain without contrast, CTA of the head, and CT of the neck were read as showing acute to subacute appearing right frontal and parietaloccipital infarcts. No acute intracranial hemorrhage or midline shift stable appearance of the CTA head and neck compared to study from 05/27/2023. Complete thrombosis again noted involving the majority of the right ICA with reconstitution of flow supraclinoid segment to the levelock of Chavez. 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 We are asked to admit the patient for ongoing evaluation of recurrent CVA and need for antiplatelet regimen adjustments. Patient was sitting in bed in no acute distress at time of exam with her mother sitting bedside, history was obtained from both. Patient states that since her previous stroke she had mild left upper extremity and left lower extremity weakness. Approximately 48 hours ago she states that she started develop increased weakness in the left upper extremity and left lower extremity compared to her baseline along with intermittent episodes of confusion and/or not acting herself per her close contacts. States that last night she felt too weak to get up to go to the bathroom which is when she felt something was really wrong. States that she continues to take her home Plavix and atorvastatin but states that she ran out of the daily baby aspirin she previously took. Confirms that she has quit smoking and showed me the nicotine patch on her right hand. Denies recent headache, changes in vision, hearing, taste, smell, chest pain, shortness of breath, cough, abdominal pain, nausea/vomiting, dysuria/hematuria, melena, new paresthesias, lower extremity swelling, recent trauma. Denies recent alcohol or drug use. Confirms that she is a full code and would want her mother to make medical assistance for her she cannot make himself. Please for Dr. Barajas's attestation for any changes to the treatment plan Allergies Allergy/AdvReac Type Severity Reaction Status Date / Time No Known Allergies Allergy Verified 12/05/23 13:02 Home Medications Medication Instructions Recorded Confirmed Type buprenorphine 8 mg-naloxone 2 mg 0 film sublingual TID 04/17/19 02/16/24 History sublingual film (Suboxone) clopidogrel 75 mg tablet 75 mg PO DAILY #90 tabs 06/14/23 02/16/24 Rx rosuvastatin 20 mg tablet 20 mg PO DAILY #90 tabs 06/14/23 02/16/24 Rx gabapentin 600 mg tablet 0 mg PO TID PRN Pain 02/16/24 02/16/24 History gabapentin 800 mg tablet 800 mg PO UD 02/16/24 02/16/24 History Past Med/Surg History Problem List (Updated 02/17/24 @ 08:27 by All Lindsey MD) Ischemic stroke Brain fog (Acute) History of cardioembolic cerebrovascular accident (CVA) (Acute) 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) use of 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/antiplatelets (Acute) History of tobacco abuse Stroke-like symptoms Weakness (Acute) Aortic regurgitation mild-moderate 05/2023 echo Prediabetes History of CVA (cerebrovascular accident) Peripheral arterial occlusive disease Right carotid artery occlusion Left arm weakness (Acute) Hypertension (Acute) Hyperlipidemia Status post total left knee replacement Osteoarthritis of left knee History of drug abuse Neuropathy Lumbar radicular syndrome Right rotator cuff tear Hypertension Decreased libido Cigarette smoker [place] of foot Chronic pain of left knee Medical History CVA (cerebral vascular accident) Hx of drug abuse per medical record-prescription pain killers following surgery; stopped using 4 years ago History of anxiety Hx of chest pain "get it 2-3 times per year, found to be from anxiety" Tobacco use 1 pack per day Encounter for pre-operative examination Chronic pain Pneumonia of both lower lobes 04/2022, not hospitalized; resolved. Surgical History History of removal of cyst NECK, FOREHEAD History of arthroscopic knee surgery BL History of laparoscopic cholecystectomy 04/17/19 Grade 1 view, MAC 3, ETT 7. Family History Mother Hypertension Heart disease Father , age 81 of an [place] Hypertension Heart disease Other No family history of adverse response to anesthesia Denies family history of Ovarian cancer Breast cancer Colorectal cancer Social History Smoking Status: Current some day smoker Tobacco Type: Cigarettes Age Started Using Tobacco: 15; Age Quit Using Tobacco: 62; packs per day: 1; Cigarettes Per Day: 20; Second Hand Exposure: No; Do You Dip or Chew Tobacco: No; Tobacco Cessation Education Requested by Patient: No Hx Alcohol Use: No Hx Substance Use: No Preferred Language: Divehi Communication Ability: Effective Visual Impairment: No Limitations Hearing Ability: Normal Glass Sander Required: No Beliefs That Will Affect Care: None marital status: Current Living Situation: Alone Current Living Situation Comment: Living alone current occupational status: unemployed 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 Other Information That Helps Us Care for You: No Feels Safe at Home: Yes Safety Concerns: Feels Safe At This Time Safety Concerns Comment: Patient feels confused, unsteady, and is unable to care for herself Childhood Exposure to Second-Hand Smoke: Yes Diet: regular caffeine: Yes Dental Care, Regularly: No Physical Activity Frequency: Daily Seatbelt Use: always Assistive Devices: None Physical Exam Physical Exam: Physical Exam: General: In no acute distress, stated age, chronically ill-appearing but nontoxic HEENT: Normocephalic, atraumatic, no scleral icterus, pupils around round, symmetrical, and reactive to light, moist mucus membranes, trachea midline, no thyromegaly > Left carotid bruit noted Chest/Pulm: No respiratory distress, symmetrical chest expansion, clear breath sounds throughout Cardiac: RRR, no murmurs noted Abdomen: Negative for ascites and bruising, normoactive bowel sounds, soft, non-tender to palpation throughout Musculoskeletal: No acute trauma on exam Extremities: Radial, dorsalis pedis, and posterior tibial pulses are intact and symmetrical, no edema noted in the BL LE's Skin: Warm, dry, no rashes , lesions, or scars noted Neuro: Alert and oriented to person, place, month, year, and president, CN II-XII tested and intact, patient with 1+ strength in the left upper extremity which she confirms is new compared to previous baseline, 5+ strength in the right upper and right lower extremities, 4+ strength in the left lower extremity, intact and symmetrical sensation in the bilateral upper and lower extremities, no tremors noted Psych: No acute distress, patient has an appropriate laughter at times compared to what would be expected for a patient with new significant weakness and concerns for recurrent CVA, but polite, calm and cooperative during the exam Results & Data Results & Data Vital Signs (Past 12 Hours) Vital Signs Temp Pulse Resp BP Pulse Ox O2 Del Method 02/16/24 11:26 36.6 C 73 18 201/97 H 97 Room Air Laboratory Results Abnormal lab results 02/16/24 02/16/24 Range/Units 11:55 12:39 MPV 8.6 L (9.4-12.4) fL POC Anion Gap 15.0 L (16-25) mmol/L POC Creatinine 0.5 L (0.6-1.3) mg/dl Glucose 103 H (70-99(Fasting)) mg/dl POC Glucose (other) 101 H (70-99) mg/dl POC Ioniz Calcium Jacek 1.07 L (1.12-1.32) mmol/l Diagnostic Findings Head CT 02/16/24 12:00 CT angio head w con, CT head/brain wo con, CT angio neck with con CLINICAL HISTORY: 63 years-old Female with neuro deficit, acute stroke suspected. Acute stroke like symptoms COMPARISON STUDY: Brain MRI 05/09/2023, head CT, CTA head and neck 05/27/2023 TECHNIQUE: Unenhanced axial CT scan of the brain is performed. Subsequently, following the IV administration of Optiray, CT angiogram of the head and neck was performed. Images are reviewed in the axial, sagittal, and coronal planes. 3-D MIPS images are created and assessed. IV contrast was administered without complication. All measurements were obtained according to NASCET criteria. A dose lowering technique was utilized adhering to the principles of ALARA. CT DOSE: 1278.06 mGy.cm FINDINGS: CT BRAIN: Large chronic area of encephalomalacia from chronic infarct involves the superior right parietal lobe on image 21 series 2. Interval development of an acute versus subacute infarct within the posterior right cerebrum on image 15 series 2 measuring 4.4 cm involving the right parieto-occipital lobe. There is an additional ill-defined area of decreased attenuation within the right frontal lobe on image 17 series 2 measuring 4.2 cm which is new from prior. There is no acute intracranial hemorrhage, midline shift, hydrocephalus, intra- axial mass mass, or abnormal extra-axial collections. No abnormal intra-axial or extra-axial enhancement. Mastoid air cells and middle ear cavities are clear. No calvarial fracture. Paranasal sinuses are clear. CT ANGIOGRAM OF THE HEAD AND NECK: Three-vessel morphology of the thoracic aortic arch. High-grade stenosis with kinking and atherosclerosis of the left clip in the artery on image 95 series 6 is unchanged. The common carotid arteries are patent. Atherosclerosis of the left carotid bulb again noted resulting in less than 50% stenosis. Prominent atheromatous plaque of the right carotid bulb and proximal cervical segment right ICA redemonstrated with complete thrombosis again noted involving the majority of the right ICA with reconstitution of flow again noted within the supraclinoid segment, via the levelock of [place], similar to prior. Moderate multifocal stenoses noted throughout the distal branches of the left middle cerebral artery. Cerebral venous sinuses are patent. The anterior cerebral arteries appear patent. No acute proximal middle cerebral artery thrombus identified on the right. The right MCA is diminutive compared to the left and there is attenuation of the distal and 3 branches. Chronic occlusion of the V1 and proximal V2 segments of the left vertebral artery with minimal reconstitution of flow again noted within the V2 segment level of C4-C5. Unchanged mild to moderate multifocal stenoses throughout the right vertebral artery with. Appearance again seen within the V3 segment. The majority of the right vertebral artery terminates into the right PICA. origin of the right posterior cerebral artery. The lung apices appear clear. No pneumothorax. No lymphadenopathy. No acute fracture identified. IMPRESSION: 1. There are acute to subacute appearing right frontal and parieto-occipital infarcts as above. 2. No acute intracranial hemorrhage or midline shift. 3. Stable appearance of the CTA head and neck compared to the study from 05/27/2023. 4. Complete thrombosis is again noted involving the majority of the right ICA with reconstitution of flow in the supraclinoid segment through the levelock of [place]avez. 5. 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 6. Chronic right parietal infarct. ACT 112: Negative or not required by law. The above report was generated using voice recognition software. It may contain grammatical, syntax or spelling errors. Electronically signed by: Luis Barnes M.D. 02/16/2024 1:35 PM Head CTA 02/16/24 12:00 CT angio head w con, CT head/brain wo con, CT angio neck with con CLINICAL HISTORY: 63 years-old Female with neuro deficit, acute stroke suspected. Acute stroke like symptoms COMPARISON STUDY: Brain MRI 05/09/2023, head CT, CTA head and neck 05/27/2023 TECHNIQUE: Unenhanced axial CT scan of the brain is performed. Subsequently, following the IV administration of Optiray, CT angiogram of the head and neck was performed. Images are reviewed in the axial, sagittal, and coronal planes. 3-D MIPS images are created and assessed. IV contrast was administered without complication. All measurements were obtained according to NASCET criteria. A dose lowering technique was utilized adhering to the principles of ALARA. CT DOSE: 1278.06 mGy.cm FINDINGS: CT BRAIN: Large chronic area of encephalomalacia from chronic infarct involves the superior right parietal lobe on image 21 series 2. Interval development of an acute versus subacute infarct within the posterior right cerebrum on image 15 series 2 measuring 4.4 cm involving the right parieto-occipital lobe. There is an additional ill-defined area of decreased attenuation within the right frontal lobe on image 17 series 2 measuring 4.2 cm which is new from prior. There is no acute intracranial hemorrhage, midline shift, hydrocephalus, intra- axial mass mass, or abnormal extra-axial collections. No abnormal intra-axial or extra-axial enhancement. Mastoid air cells and middle ear cavities are clear. No calvarial fracture. Paranasal sinuses are clear. CT ANGIOGRAM OF THE HEAD AND NECK: Three-vessel morphology of the thoracic aortic arch. High-grade stenosis with kinking and atherosclerosis of the left clip in the artery on image 95 series 6 is unchanged. The common carotid arteries are patent. Atherosclerosis of the left carotid bulb again noted resulting in less than 50% stenosis. Prominent atheromatous plaque of the right carotid bulb and proximal cervical segment right ICA redemonstrated with complete thrombosis again noted involving the majority of the right ICA with reconstitution of flow again noted within the supraclinoid segment, via the levelock of [place], similar to prior. Moderate multifocal stenoses noted throughout the distal branches of the left middle cerebral artery. Cerebral venous sinuses are patent. The anterior cerebral arteries appear patent. No acute proximal middle cerebral artery thrombus identified on the right. The right MCA is diminutive compared to the left and there is attenuation of the distal and 3 branches. Chronic occlusion of the V1 and proximal V2 segments of the left vertebral artery with minimal reconstitution of flow again noted within the V2 segment level of C4-C5. Unchanged mild to moderate multifocal stenoses throughout the right vertebral artery with. Appearance again seen within the V3 segment. The majority of the right vertebral artery terminates into the right PICA. origin of the right posterior cerebral artery. The lung apices appear clear. No pneumothorax. No lymphadenopathy. No acute fracture identified. IMPRESSION: 1. There are acute to subacute appearing right frontal and parieto-occipital infarcts as above. 2. No acute intracranial hemorrhage or midline shift. 3. Stable appearance of the CTA head and neck compared to the study from 05/27/2023. 4. Complete thrombosis is again noted involving the majority of the right ICA with reconstitution of flow in the supraclinoid segment through the levelock of [place]. 5. 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 6. Chronic right parietal infarct. ACT 112: Negative or not required by law. The above report was generated using voice recognition software. It may contain grammatical, syntax or spelling errors. Electronically signed by: Luis Barnes M.D. 02/16/2024 1:35 PM Neck CTA 02/16/24 12:00 CT angio head w con, CT head/brain wo con, CT angio neck with con CLINICAL HISTORY: 63 years-old Female with neuro deficit, acute stroke suspected. Acute stroke like symptoms COMPARISON STUDY: Brain MRI 05/09/2023, head CT, CTA head and neck 05/27/2023 TECHNIQUE: Unenhanced axial CT scan of the brain is performed. Subsequently, following the IV administration of Optiray, CT angiogram of the head and neck was performed. Images are reviewed in the axial, sagittal, and coronal planes. 3-D MIPS images are created and assessed. IV contrast was administered without complication. All measurements were obtained according to NASCET criteria. A dose lowering technique was utilized adhering to the principles of ALARA. CT DOSE: 1278.06 mGy.cm FINDINGS: CT BRAIN: Large chronic area of encephalomalacia from chronic infarct involves the superior right parietal lobe on image 21 series 2. Interval development of an acute versus subacute infarct within the posterior right cerebrum on image 15 series 2 measuring 4.4 cm involving the right parieto-occipital lobe. There is an additional ill-defined area of decreased attenuation within the right frontal lobe on image 17 series 2 measuring 4.2 cm which is new from prior. There is no acute intracranial hemorrhage, midline shift, hydrocephalus, intra- axial mass mass, or abnormal extra-axial collections. No abnormal intra-axial or extra-axial enhancement. Mastoid air cells and middle ear cavities are clear. No calvarial fracture. Paranasal sinuses are clear. CT ANGIOGRAM OF THE HEAD AND NECK: Three-vessel morphology of the thoracic aortic arch. High-grade stenosis with kinking and atherosclerosis of the left clip in the artery on image 95 series 6 is unchanged. The common carotid arteries are patent. Atherosclerosis of the left carotid bulb again noted resulting in less than 50% stenosis. Prominent atheromatous plaque of the right carotid bulb and proximal cervical segment right ICA redemonstrated with complete thrombosis again noted involving the majority of the right ICA with reconstitution of flow again noted within the supraclinoid segment, via the levelock of [place], similar to prior. Moderate multifocal stenoses noted throughout the distal branches of the left middle cerebral artery. Cerebral venous sinuses are patent. The anterior cerebral arteries appear patent. No acute proximal middle cerebral artery thrombus identified on the right. The right MCA is diminutive compared to the left and there is attenuation of the distal and 3 branches. Chronic occlusion of the V1 and proximal V2 segments of the left vertebral artery with minimal reconstitution of flow again noted within the V2 segment level of C4-C5. Unchanged mild to moderate multifocal stenoses throughout the right vertebral artery with. Appearance again seen within the V3 segment. The majority of the right vertebral artery terminates into the right PICA. origin of the right posterior cerebral artery. The lung apices appear clear. No pneumothorax. No lymphadenopathy. No acute fracture identified. IMPRESSION: 1. There are acute to subacute appearing right frontal and parieto-occipital infarcts as above. 2. No acute intracranial hemorrhage or midline shift. 3. Stable appearance of the CTA head and neck compared to the study from 05/27/2023. 4. Complete thrombosis is again noted involving the majority of the right ICA with reconstitution of flow in the supraclinoid segment through the levelock of [place]. 5. 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 6. Chronic right parietal infarct. ACT 112: Negative or not required by law. The above report was generated using voice recognition software. It may contain grammatical, syntax or spelling errors. Electronically signed by: Luis Barnes M.D. 02/16/2024 1:35 PM Chest X-Ray 02/16/24 12:08 XR chest 1V portable HISTORY: 63 years-old Female sob acute shortness of breath COMPARISON: 06/13/2023 TECHNIQUE: AP view of the chest FINDINGS: Cardiomediastinal and hilar silhouettes are within normal limits. No pneumothorax, pleural effusion or airspace consolidation. Bones appear intact. IMPRESSION: No acute process. ACT 112: Negative or not required by law. The above report was generated using voice recognition software. It may contain grammatical, syntax or spelling errors. Electronically signed by: Luis Barnes M.D. 02/16/2024 12:20 PM ECG Additional Comments: Normal sinus rhythm without acute ST segment or T wave changes Code Status & VTE Plan Code Status Full code VTE Prophylaxis Plan VTE Prophylaxis will be ordered: Yes Supervising Physician Co-Signing Physician Notes I personally saw and examined the patient. I verified all lyman points and agree with Asim White PA-C with the following exceptions and/or additions: 63 year old female presents ot the ER with left arm weakness and right eye medial vision loss. Symptoms started 2 days ago. 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, no sensory loss, left homonymous hemianopia of just the right eye A/P Acute stroke - ASA, clopidogrel, increase rosuvastatin, TTE, permissive hypertension, lipid and HbA1C panel, consult neurology - will defer to neurology regarding timing of consulting vascular surgery PG Care Time/CCT Total # of Minutes Spent Total Time Spent with Patient: Total time spent is greater than 50% in coordination of care (as documented) at patient's floor/unit and/or counseling patient: Coding [place] [id number] INT INP/OBS CARE 3/75MIN Patient Type Established Medical Decision Making High Complexity Diagnoses Stroke-like symptoms R29.90 Hypertension I10 Hypertension type: unspecified Hyperlipidemia E78.5 History of drug abuse F19.11 History of tobacco abuse Z87.891 (2) Hypertension Hypertension type: unspecified Qualified Code(s): I10 - Essential (primary) hypertension
[2024-02-16] MEDS ORDERED: PHARMACIST DISCHARGE MED REC CONSULT PRN (14:07)
[2024-02-16] MEDS ORDERED: BUPRENORPHINE/NALOXONE 8/2 MG TAB SL STA (14:25)
[2024-02-16] MEDS ORDERED: NICOTINE POLACRILEX 2 MG GUM MT PRN (14:38)
[2024-02-16 16:05] LABS: Amphetamines+Metham, Urine Neg (Neg); Barbiturates, Urine Neg (Neg); Benzodiazepine, Urine Neg (Neg); Cocaine, Urine Neg (Neg); Fentanyl, Urine Neg (Neg); MDMA (Ecstacy), Urine Neg (Neg); Marijuana, Urine Neg (Neg); Methadone, Urine Neg (Neg); Opiate, Urine Neg (Neg); Phencyclidine, Urine Neg (Neg)
[2024-02-16] MEDS: ASPIRIN CHEW 324 MG PO STA (18:04)
[2024-02-16] MEDS: CLOPIDOGREL BISULFATE 75 MG TAB PO ONE (18:05)
[2024-02-16] MEDS: ROSUVASTATIN CALCIUM 20 MG TAB PO STA (18:06)
[2024-02-16] MEDS: GABAPENTIN 600 MG TAB PO STA (18:07)
[2024-02-16] MEDS: NICOTINE 21 MG/24 HR TDSY TD SCH (18:10)
[2024-02-16] MEDS: CALCIUM GLUCONATE 1,000 MG/60 ML BAG IV STA (18:15)
--- NOTE | 2024-02-16 18:15 | Magnetic Resonance Report ---
MR brain wo con HISTORY: 63 years-old Female stroke workup acute stroke like symptoms COMPARISON: CTA head and neck of same day, brain MRI 05/27/2023. TECHNIQUE: Multiplanar multisequence MRI of the brain was obtained without IV contrast. FINDINGS: Cortically-based area of restricted diffusion within the superior right frontal lobe on image 19 seri es 3 measures 8 cm on the ADC map. Similar appearing focus in the medial right frontal lobe, 9 mm on image 15 with 3.8 similar focus within the right parieto-occipital lobe on image 11 series 5. Chronic right parietal infarct. No acute intracranial hemorrhage or midline shift or hydrocephalus. Chronic left cerebellar lacunar i nfarcts. Cerebral venous sinuses appear patent. IMPRESSION: 1. 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 2. Chronic right parietal infarct and left cerebellar lacunar infarcts. 3. No acute intracranial hemorrhage, midline shift or hydrocephalus. ACT 112: Negative or not required by law. The above report was generated using voice recognition software. It may contain grammatical, syntax o r spelling errors. Electronically signed by: Luis Barnes M.D. 02/16/2024 6:12 PM
[2024-02-16] MEDS: BUPRENORPHINE/NALOXONE 8/2 MG TAB SL SCH (18:18)
[2024-02-16 19:29] LABS: Appearance Urine Clear (Clear); Bacteria Urine Automated None Seen (None Seen); Bilirubin Urine Negative (Negative); Blood Urine 1+ (Negative); Cast Urine Automated 0-2 /lpf (0-2); Color Urine Yellow; Epithelial Cell Urine Auto 0-2 /hpf (0-2); Glucose Urine UA Negative (Negative); Ketones Urine Negative (Negative); Leukocyte Esterase Urine Negative (Negative); Nitrite Urine Negative (Negative); Protein Urine Trace (Negative); Specific Gravity Urine 1.018 (1.000-1.030); Urobilinogen Urine Positive (Negative); WBC Urine Automated 0-5 /hpf (0-5); pH Urine 7.5 (4.5-7.5)
[2024-02-17 06:19] LABS: Basophils # (auto) 0.03 K/uL (0.00-0.20); Basophils % (auto) 0.6 %; Eosinophils # (auto) 0.14 K/uL (0.00-0.50); Eosinophils % (auto) 2.7 %; Hematocrit (blood only) 37.7 % (37.0-47.0); Hemoglobin 12.5 g/dl (12.0-16.0); Immature Granulocytes # (auto) 0.01 K/uL (0.01-0.20); Immature Granulocytes % (auto) 0.2 %; Lymphocytes # (auto) 2.36 K/uL (1.20-3.40); Mean Corpuscular Hemoglobin 29.3 pg (25.0-34.0); Mean Corpuscular Hgb Conc 33.2 g/dL (32.0-36.0); Mean Corpuscular Volume 88.3 fL (80.0-100.0); Mean Platelet Volume 8.8 fL (9.4-12.4); Monocytes % (auto) 7.6 %; Neutrophils % (auto) 43.9 %; Platelet Count 218 K/uL (130-400); RDW Coefficient of Variation 12.5 % (11.5-14.5); RDW Standard Deviation 40.1 fL (36.4-46.3); Red Blood Count 4.27 M/uL (4.20-5.40); White Blood Count 5.24 K/ul (4.8-10.8)
[2024-02-17 06:31] LABS: Albumin Globulin Ratio 1.4 (0.9-2); Albumin Level 3.9 gm/dl (3.4-5.0); BUN Creatinine Ratio 19.6 (10-20); Bilirubin,Total 0.5 mg/dl (0.2-1.0); Calcium 9.3 mg/dl (8.6-10.3); Creatinine Clr Calc Pharmacy 111.2 ml/min; Est GFR (Non-African American) 99.2 ml/min; Globulin 2.7 gm/dl (2.5-4.0); Magnesium 2.1 mg/dl (1.7-2.4); Potassium 3.5 mmol/L (3.5-5.1); Total Protein 6.6 gm/dl (6.0-8.3)
[2024-02-17 06:34] LABS: Prothrombin Time 11.1 Seconds (9.0-12.0)
[2024-02-17 07:21] LABS: Estimated Average Glucose 126 mg/dl
--- NOTE | 2024-02-17 08:20 | Neurology Consultation ---
Date of Consultation February 17, 2024 Assessment & Plan (1) Ischemic stroke: History of Present Illness Attending Physician: Mihai Rebolledo MD History of Present Illness S: pt this morning feeling well. left arm weak that started 2 days ago. left leg mild weakness. no speech problem. mri brain showing multiple rt MCA territory ischemic strokes. chart reviewed. clinically stable. 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 On arrival to the ED she was noted to be hypertensive at 201/97 but otherwise stable. Labs including CBC, CMP, high-sensitivity troponin were unremarkable. Chest x-ray was read as unremarkable. CT of the head and brain without contrast, CTA of the head, and CT of the neck were read as showing acute to subacute appearing right frontal and parietaloccipital infarcts. No acute intracranial hemorrhage or midline shift stable appearance of the CTA head and neck compared to study from 05/27/2023. Complete thrombosis again noted involving the majority of the right ICA with reconstitution of flow supraclinoid segment to the [place]. 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 We are asked to admit the patient for ongoing evaluation of recurrent CVA and need for antiplatelet regimen adjustments. Patient was sitting in bed in no acute distress at time of exam with her mother sitting bedside, history was obtained from both. Patient states that since her previous stroke she had mild left upper extremity and left lower extremity weakness. Approximately 48 hours ago she states that she started develop increased weakness in the left upper extremity and left lower extremity compared to her baseline along with intermittent episodes of confusion and/or not acting herself per her close contacts. States that last night she felt too weak to get up to go to the bathroom which is when she felt something was really wrong. States that she continues to take her home Plavix and atorvastatin but states that she ran out of the daily baby aspirin she previously took. Confirms that she has quit smoking and showed me the nicotine patch on her right hand. Denies recent headache, changes in vision, hearing, taste, smell, chest pain, shortness of breath, cough, abdominal pain, nausea/vomiting, dysuria/hematuria, melena, new paresthesias, lower extremity swelling, recent trauma. Denies recent alcohol or drug use. Confirms that she is a full code and would want her mother to make medical assistance for her she cannot make himself. Allergies Allergy/AdvReac Type Severity Reaction Status Date / Time No Known Allergies Allergy Verified 12/05/23 13:02 Home Medications Medication Instructions Recorded Confirmed Type buprenorphine 8 mg-naloxone 2 mg 0 film sublingual TID 04/17/19 02/16/24 History sublingual film (Suboxone) clopidogrel 75 mg tablet 75 mg PO DAILY #90 tabs 06/14/23 02/16/24 Rx rosuvastatin 20 mg tablet 20 mg PO DAILY #90 tabs 06/14/23 02/16/24 Rx gabapentin 600 mg tablet 0 mg PO TID PRN Pain 02/16/24 02/16/24 History gabapentin 800 mg tablet 800 mg PO UD 02/16/24 02/16/24 History Patient History Medical History CVA (cerebral vascular accident) Hx of drug abuse per medical record-prescription pain killers following surgery; stopped using 4 years ago History of anxiety Hx of chest pain "get it 2-3 times per year, found to be from anxiety" Tobacco use 1 pack per day Encounter for pre-operative examination Chronic pain Pneumonia of both lower lobes 04/2022, not hospitalized; resolved. Surgical History History of removal of cyst NECK, FOREHEAD History of arthroscopic knee surgery BL History of laparoscopic cholecystectomy 04/17/19 Grade 1 view, MAC 3, ETT 7. Family History Mother Hypertension Heart disease Father , age 81 of an [place] Hypertension Heart disease Other No family history of adverse response to anesthesia Denies family history of Ovarian cancer Breast cancer Colorectal cancer Social History Smoking Status: Current some day smoker Tobacco Type: Cigarettes Age Started Using Tobacco: 15; Age Quit Using Tobacco: 62; packs per day: 1; Cigarettes Per Day: 20; Second Hand Exposure: No; Do You Dip or Chew Tobacco: No; Tobacco Cessation Education Requested by Patient: No Hx Alcohol Use: No Hx Substance Use: No Preferred Language: Korean Communication Ability: Effective Visual Impairment: No Limitations Hearing Ability: Normal Gas Collection System Operator Required: No Beliefs That Will Affect Care: None marital status: Current Living Situation: Alone Current Living Situation Comment: Living alone current occupational status: unemployed 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 Other Information That Helps Us Care for You: No Feels Safe at Home: Yes Safety Concerns: Feels Safe At This Time Safety Concerns Comment: Patient feels confused, unsteady, and is unable to care for herself Childhood Exposure to Second-Hand Smoke: Yes Diet: regular caffeine: Yes Dental Care, Regularly: No Physical Activity Frequency: Daily Seatbelt Use: always Assistive Devices: None Review of Systems Review of Systems: All systems reviewed & are unremarkable except as noted in Subjective Constitutional: as per Subjective / HPI Eyes: as per Subjective / HPI Ear, Nose, Mouth, Throat: as per Subjective / HPI Respiratory: as per Subjective / HPI Cardiovascular: as per Subjective / HPI Gastrointestinal: as per Subjective / HPI Musculoskeletal: as per Subjective / HPI Integumentary: as per Subjective / HPI Neurologic: as per Subjective / HPI Psychiatric: as per Subjective / HPI Endocrine: as per Subjective / HPI Hematologic / Lymphatic: as per Subjective / HPI Allergy / Immunological: as per Subjective / HPI Exam (Neuro) Physical Exam: HEENT: normocephalic Neuro: Mental: AOx4, fluent speech, normal comprehension, no apraxia, no L/R confusion, no neglect CN: PERRL, Full EOM, symmetric face, midline T/U/P, 5/5 SCM/traps. Motor: No abnormal movements, normal tone and bulk, 5/5 t/o rt arm/leg. LUE: 2/5 proximally, 3+/5 elbow flexion/extension, 4-/5 finger flexion, 3/5 finger extension. LLE: 4-/5 proximal hip flexion, 4/5 knee extension/flexion. 5/5 distal dorsiflexion and plantar flexion. Sens: intact to touch b/l grossly Coord: intact FNT rt arm. DTR: 1+ sym b/l Gait: intact grossly Impression: 63 yo female with acute rt MCA territory multiple ischemic stroke with left hemiparesis (arm >leg) in setting of known rt ICA occlusion, left partial occlusion and hx of drug abuse. Clinically stable without sign of bleed. Recommendations: 1. Standard stroke work up as planned 2. antiplatelet therapy: * DAPT (dual antiplatelet therapy): Continue DAPT for 90 days . After that, can continue single antiplatelet therapy (either ASA or Plavix). 3. Images: TTE with bubble, CTA head/nec k; extensive disease and occlusion, high risk for recurrent stroke. consider vascular surgery consult for future plan. 4. Permissive Hypertension for next 24-4 8 hrs. Keep SBP goal range less than 220. Avoid hypotension. Do not stop beta-hebert if on it. 5. If noted for large intracranial vesse l stenosis, slow reduction of BP and allowing permissive HTN next 5 days. 6. Long-term SBP goal less than 130. 7. Plenty of hydration including IV flui d if possible (use isotonic solution) next 1-2 days. Avoid hypovolemia and hypotension. 8. Initiate DVT prevention therapy. 9. Avoid hypoglycemia, serum glucose goa l during hospitalization: 140-180. 10. Long-term HgA1c goal less than 7. 11. Start statin if not on it and no abs olute contraindication, long-term LDL goal less than 70. 12. Head of bed up 30 degrees if possibl e. 13. Stroke education by nursing and appr opriate staff. 14. Telemetry monitoring. Consider custodial cardiac monitoring, i.e. MCOT (mo bile cardiac outpatient telemetry) or ICM (insertable conveyor monitor, e.g. LINQ), if never had custodial cardiac monitoring done previously. And if found to have atrial flutter or fibrillation, should consider anticoagulation therapy if no contraindication. 15. Fall precaution and aspiration preca ution. 16. Consult physical and occupational th erapy evaluation. Chart reviewed I have spent more than 50% educating patient about potential diagnosis and neurological evaluation and coordinating care with patient's treatment team. Total time spent (including chart review and coordination of care): 60 min (this includes chart review). Results & Data Vital Signs (Past 12 Hours) Vital Signs Temp Pulse Pulse Resp BP Pulse Ox O2 Del Method 02/17/24 08:03 36.6 C 66 18 133/80 97 Room Air 02/17/24 07:45 68 02/17/24 03:14 36.7 C 62 18 120/72 94 Room Air 02/16/24 22:51 36.6 C 66 18 95 Room Air 02/16/24 22:05 55 L PG Care Time/CCT Total # of Minutes Spent Total Time Spent with Patient: Total time spent is greater than 50% in coordination of care (as documented) at patient's floor/unit and/or counseling patient: Coding Level of Care Code 30957 IN/OBS CONSULT LVL 4,60M Diagnoses Ischemic stroke I63.9
[2024-02-17] MEDS: ASPIRIN 81 MG ECTAB PO SCH (09:18)
[2024-02-17] MEDS: CLOPIDOGREL BISULFATE 75 MG TAB PO SCH (09:18)
[2024-02-17] MEDS: ROSUVASTATIN CALCIUM 20 MG TAB PO SCH (09:20)
[2024-02-17] MEDS: BUPRENORPHINE/NALOXONE 8/2 MG TAB SL SCH (09:24)
--- NOTE | 2024-02-17 10:47 | Hospitalist Progress Note ---
Date of Service February 17, 2024 Assessment & Plan (1) Ischemic stroke: Plan: Acute ischemic stroke Patient has a history of known right ICA occlusion and left partial occlusion Presents to the hospital worsening left upper extremity and lower extremity weakness. CTA of the neck show acute to subacute appearing right frontal and parietaloccipital infarcts MRI showed evidence of acute right MCA territory ischemic stroke Was on aspirin at home, will add Plavix also continue statin Permissive hypertension 4 to 48 hours Appreciate neurology recommendations. PT OT consulted (2) Hypertension: Plan: Will allow permissive hypertension until MRI brain without contrast results are back in case she did not fact have acutesubacute CVA (3) Hyperlipidemia: Plan: Patient is normally on 20 mg Crestor daily For now we will increase to 40 mg daily until fasting the panel will morning is back (4) History of drug abuse: Plan: Will continue 3 times daily sublingual buprenorphine 8/2 mg Continue gabapentin Will add urine drug screen due for UA to rule out other possible causes of odd behavior noted during exam (5) History of tobacco abuse: Plan: Continue nicotine patch and gum Continue to encourage ongoing smoking cessation (6) History of cardioembolic cerebrovascular accident (CVA): (7) Stroke-like symptoms: Plan: see no 1 Plan DVT prophylaxis SCDs Awaiting physical therapy evaluation Admission and Anticipated Discharge Date Admission Date: February 16, 2024 Subjective Patient seen and examined, still has considerable weakness in the left lower extremity Review of Systems Review of Systems: All systems reviewed are negative, apart from the ones contained in the history. Physical Exam Physical Exam: The patient is awake, alert and oriented 3, well developed and well nourished, normocephalic and atraumatic, lying in bed and in no acute distress. HEENT--PERRL, EOMI, mucous membranes and oropharynx mildly dry Neck--supple. No JVD. No bruits. Thyroid normal, trachea midline, no adenopathy. Heart--normal S1 and S2. No murmurs, rubs or gallops. Lungs--clear bilaterally, no respiratory distress, no accessory muscle use. Abdomen--normal bowel sounds and soft. Extremities--no cyanosis or clubbing. No edema. Dermatologic--normal skin turgor, normal color, no abnormal lymph nodes, no rash. Neurologic--Left hemiparesis Rheumatologic--normal range of motion. Psychiatric--normal affect. Results & Data Results & Data Vital Signs (Past 12 Hours) Vital Signs Temp Pulse Pulse Resp BP Pulse Ox O2 Del Method 02/17/24 08:03 97.9 F 66 18 133/80 97 Room Air 02/17/24 07:45 68 02/17/24 03:14 98.1 F 62 18 120/72 94 Room Air 02/16/24 22:51 97.9 F 66 18 95 Room Air PG Care Time/CCT Total # of Minutes Spent Total Time Spent with Patient: Total time spent is greater than 50% in coordination of care (as documented) at patient's floor/unit and/or counseling patient: Coding Level of Care Code 18618 SUB INP/OBS CARE 2/35MIN Diagnoses Ischemic stroke I63.9 Hypertension I10 Hypertension type: unspecified Hyperlipidemia E78.5 History of drug abuse F19.11 History of tobacco abuse Z87.891 History of cardioembolic cerebrovascular accident (CVA) Z86.73 Stroke-like symptoms R29.90 Time Spent (min) 35 (2) Hypertension Hypertension type: unspecified Qualified Code(s): I10 - Essential (primary) hypertension
--- NOTE | 2024-02-17 11:23 | Pharmacy Report ---
- Date of Service February 17, 2024 - Pharmacy CVA/TIA Medication Review Medications to Prevent Stroke handout has been added to the patients discharge packet. Antiplatelet(s) * Aspirin, clopidogrel Cholesterol * High intensity statin: rosuvastatin 40 mg daily DVT Prophylaxis * SCD knee Therapeutic Anticoagulation * No history of Afib/Aflutter noted Type 2 Diabetes * HbA1c 6.0% is indicative of pre-diabetes. Patient does not have T2DM.
--- NOTE | 2024-02-17 12:11 | Electrocardiogram Report ---
Test Reason : Blood Pressure : */* mmHG Vent. Rate : 69 BPM Atrial Rate : 69 BPM P-R Int : 174 ms QRS Dur : 86 ms QT Int : 398 ms P-R-T Axes : 21 4 34 degrees QTcB Int : 426 ms Normal sinus rhythm Normal ECG When compared with ECG of 13-Jun-2023 04:28, No significant change was found Confirmed by Duane Keenan ([id number]) on 02/17/2024 12:11:18 PM Referred By: REFERRED SELF Confirmed By: Duane Keenan
[2024-02-17] MEDS: GABAPENTIN 600 MG TAB PO SCH (20:28)
[2024-02-18 06:18] LABS: Basophils # (auto) 0.03 K/uL (0.00-0.20); Basophils % (auto) 0.6 %; Eosinophils # (auto) 0.11 K/uL (0.00-0.50); Eosinophils % (auto) 2.3 %; Hematocrit (blood only) 37.4 % (37.0-47.0); Hemoglobin 12.7 g/dl (12.0-16.0); Immature Granulocytes # (auto) 0.01 K/uL (0.01-0.20); Immature Granulocytes % (auto) 0.2 %; Lymphocytes # (auto) 1.67 K/uL (1.20-3.40); Lymphocytes % (auto) 34.6 %; Mean Corpuscular Hemoglobin 29.5 pg (25.0-34.0); Mean Corpuscular Volume 86.8 fL (80.0-100.0); Mean Platelet Volume 8.9 fL (9.4-12.4); Monocytes # (auto) 0.39 K/uL (0.11-0.59); Monocytes % (auto) 8.1 %; Neutrophils # (auto) 2.61 K/uL (1.40-6.50); Neutrophils % (auto) 54.2 %; Platelet Count 221 K/uL (130-400); RDW Coefficient of Variation 12.4 % (11.5-14.5); RDW Standard Deviation 39.8 fL (36.4-46.3); Red Blood Count 4.31 M/uL (4.20-5.40); White Blood Count 4.82 K/ul (4.8-10.8)
[2024-02-18 06:38] LABS: Albumin Globulin Ratio 1.4 (0.9-2); BUN Creatinine Ratio 23.8 (10-20); Bilirubin,Total 0.5 mg/dl (0.2-1.0); Calcium 9.4 mg/dl (8.6-10.3); Creatinine Clr Calc Pharmacy 98.8 ml/min; Est GFR (African American) 110.6 ml/min; Est GFR (Non-African American) 95.5 ml/min; Globulin 2.8 gm/dl (2.5-4.0); Potassium 3.6 mmol/L (3.5-5.1); Total Protein 6.8 gm/dl (6.0-8.3)
[2024-02-18 06:42] LABS: INR 1.1 (0.9-1.1); Prothrombin Time 11.4 Seconds (9.0-12.0)
--- NOTE | 2024-02-18 11:28 | Hospitalist Progress Note ---
Date of Service February 18, 2024 Assessment & Plan (1) Ischemic stroke: Plan: Acute ischemic stroke Patient has a history of known right ICA occlusion and left partial occlusion Presents to the hospital worsening left upper extremity and lower extremity weakness. CTA of the neck show acute to subacute appearing right frontal and parietaloccipital infarcts MRI showed evidence of acute right MCA territory ischemic stroke Was on aspirin at home, will add Plavix also continue statin Permissive hypertension 4 to 48 hours Appreciate neurology recommendations. PT OT consulted (2) Hypertension: Plan: Will allow permissive hypertension until MRI brain without contrast results are back in case she did not fact have acutesubacute CVA (3) Hyperlipidemia: Plan: Patient is normally on 20 mg Crestor daily For now we will increase to 40 mg daily until fasting the panel will morning is back (4) History of drug abuse: Plan: Will continue 3 times daily sublingual buprenorphine 8/2 mg Continue gabapentin Will add urine drug screen due for UA to rule out other possible causes of odd behavior noted during exam (5) History of tobacco abuse: Plan: Continue nicotine patch and gum Continue to encourage ongoing smoking cessation (6) History of cardioembolic cerebrovascular accident (CVA): (7) Stroke-like symptoms: Plan: see no 1 Plan DVT prophylaxis SCDs Physical therapy has recommended acute rehab, patient is medically stable and cleared for acute rehab Admission and Anticipated Discharge Date Admission Date: February 16, 2024 Subjective Patient seen and examined, still has considerable weakness in the left lower extremity Review of Systems Review of Systems: All systems reviewed are negative, apart from the ones contained in the history. Physical Exam Physical Exam: The patient is awake, alert and oriented 3, well developed and well nourished, normocephalic and atraumatic, lying in bed and in no acute distress. HEENT--PERRL, EOMI, mucous membranes and oropharynx mildly dry Neck--supple. No JVD. No bruits. Thyroid normal, trachea midline, no adenopathy. Heart--normal S1 and S2. No murmurs, rubs or gallops. Lungs--clear bilaterally, no respiratory distress, no accessory muscle use. Abdomen--normal bowel sounds and soft. Extremities--no cyanosis or clubbing. No edema. Dermatologic--normal skin turgor, normal color, no abnormal lymph nodes, no rash. Neurologic--Left hemiparesis Rheumatologic--normal range of motion. Psychiatric--normal affect. Results & Data Results & Data Vital Signs (Past 12 Hours) Vital Signs Temp Pulse Pulse Resp BP Pulse Ox O2 Del Method 02/18/24 11:07 61 02/18/24 07:33 97.5 F L 66 19 118/77 95 Room Air 02/18/24 02:54 97.5 F L 78 18 125/82 93 Room Air 02/17/24 23:50 97.9 F 59 L 16 147/81 H 95 Room Air PG Care Time/CCT Total # of Minutes Spent Total Time Spent with Patient: Total time spent is greater than 50% in coordination of care (as documented) at patient's floor/unit and/or counseling patient: Coding Level of Care Code 36862 SUB INP/OBS CARE 2/35MIN Diagnoses Ischemic stroke I63.9 Hypertension I10 Hypertension type: unspecified Hyperlipidemia E78.5 History of drug abuse F19.11 History of tobacco abuse Z87.891 History of cardioembolic cerebrovascular accident (CVA) Z86.73 Stroke-like symptoms R29.90 Time Spent (min) 35 (2) Hypertension Hypertension type: unspecified Qualified Code(s): I10 - Essential (primary) hypertension
[2024-02-18 11:51] VITALS: RESP 20; TEMP 98.1; O2SAT 96
--- NOTE | 2024-02-18 15:46 | Discharge Summary ---
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 On arrival to the ED she was noted to be hypertensive at 201/97 but otherwise stable. Labs including CBC, CMP, high-sensitivity troponin were unremarkable. Chest x-ray was read as unremarkable. CT of the head and brain without contrast, CTA of the head, and CT of the neck were read as showing acute to subacute appearing right frontal and parietaloccipital infarcts. No acute intracranial hemorrhage or midline shift stable appearance of the CTA head and neck compared to study from 05/27/2023. Complete thrombosis again noted involving the majority of the right ICA with reconstitution of flow supraclinoid segment to the [place]. 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 We are asked to admit the patient for ongoing evaluation of recurrent CVA and need for antiplatelet regimen adjustments. Patient was sitting in bed in no acute distress at time of exam with her mother sitting bedside, history was obtained from both. Patient states that since her previous stroke she had mild left upper extremity and left lower extremity weakness. Approximately 48 hours ago she states that she started develop increased weakness in the left upper extremity and left lower extremity compared to her baseline along with intermittent episodes of confusion and/or not acting herself per her close contacts. States that last night she felt too weak to get up to go to the bathroom which is when she felt something was really wrong. States that she continues to take her home Plavix and atorvastatin but states that she ran out of the daily baby aspirin she previously took. Confirms that she has quit smoking and showed me the nicotine patch on her right hand. Denies recent headache, changes in vision, hearing, taste, smell, chest pain, shortness of breath, cough, abdominal pain, nausea/vomiting, dysuria/hematuria, melena, new paresthesias, lower extremity swelling, recent trauma. Denies recent alcohol or drug use. Confirms that she is a full code and would want her mother to make medical assistance for her she cannot make himself. Admission Exam (Per Admitting) Constitutional The patient is awake, alert and oriented 3, well developed and well nourished, normocephalic and atraumatic, lying in bed and in no acute distress. HEENT--PERRL, EOMI, mucous membranes and oropharynx mildly dry Neck--supple. No JVD. No bruits. Thyroid normal, trachea midline, no ad enopathy. Heart--normal S1 and S2. No murmurs, rubs or gallops. Lungs--clear bilaterally, no respiratory distress, no accessory muscle use. Abdomen--normal bowel sounds and soft. Extremities--no cyanosis or clubbing. No edema. Dermatologic--normal skin turgor, normal color, no abnormal lymph nodes, no rash. Neurologic--cranial nerves II through XII grossly intact. left hemiparesis Rheumatologic--normal range of motion. Psychiatric--normal affect. Discharge Data Consultations 02/16/24 14:00 ED Decision to Admit Stat 02/16/24 17:23 Consult Neurology Routine Hospital Course (1) Ischemic stroke: Acute ischemic stroke Patient has a history of known right ICA occlusion and left partial occlusion Presents to the hospital worsening left upper extremity and lower extremity weakness. CTA of the neck show acute to subacute appearing right frontal and parietaloccipital infarcts MRI showed evidence of acute right MCA territory ischemic stroke Was on aspirin at home, will add Plavix also continue statin Permissive hypertension 4 to 48 hours Appreciate neurology recommendations. PT OT consulted (2) Hypertension: Will allow permissive hypertension until MRI brain without contrast results are back in case she did not fact have acutesubacute CVA (3) Hyperlipidemia: Patient is normally on 20 mg Crestor daily For now we will increase to 40 mg daily until fasting the panel will morning is back (4) History of drug abuse: Will continue 3 times daily sublingual buprenorphine 8/2 mg Continue gabapentin Will add urine drug screen due for UA to rule out other possible causes of odd behavior noted during exam (5) History of tobacco abuse: Continue nicotine patch and gum Continue to encourage ongoing smoking cessation (6) History of cardioembolic cerebrovascular accident (CVA): (7) Stroke-like symptoms: see no 1 Plan DVT prophylaxis SCDs Physical therapy has recommended acute rehab, patient is medically stable and cleared for acute rehab Coding Level of Care Code 68549 INP/OBS DISCH >30 MIN Diagnoses Ischemic stroke I63.9 Hypertension I10 Hypertension type: unspecified Hyperlipidemia E78.5 History of drug abuse F19.11 History of tobacco abuse Z87.891 History of cardioembolic cerebrovascular accident (CVA) Z86.73 Stroke-like symptoms R29.90 Time Spent (min) 35
[2024-02-18 15:54] VITALS: BP 117/73; PULSE 82
--- NOTE | 2024-02-20 12:27 | Coding Query ---
CODING QUERY To promote full compliance with coding requirements relating to patient care, provider participation is requested in all cases of program assistant uncertainty. Please assist us with the question(s) below: Clinical Indicators: History and Physical: * History of drug abuse on Suboxone * buprenorphine 8 mg-naloxone 2 mg; 0 film sublingual TID * Medical History: Hx of drug abuse per medical record-prescription pain killers following surgery; stopped using 4 years ago Coding Question(s): Are you able to further clarify the patient's use of Suboxone? (X) Opioid dependence, uncomplicated ( ) Other (please specify) ( ) Unable to determine. Thank you Audrey Mart Principal Diagnosis: "that condition established after study, to be chiefly responsible for occasioning the admission of the patient to the hospital for care." Co-Existing Principal Diagnosis: "when two or more diagnoses equally meet the criteria for principal diagnosis as determined by the circumstances of admission, diagnostic work up, and/or therapy provided, and the Alphabetic Index, Tabular List, or another coding guideline does not provide sequencing direction, any one of the diagnoses may be sequenced first." "When the physician has documented what appears to be a current diagnosis in the body of the record, but has not included the diagnosis in the final diagnostic statement, the physician should be asked whether the diagnosis should be added." ([facility] 2 QTR90. p3-4) SOPHIA
== END 2024-02-18 16:25 | DRG 65 ==
LOC: 4W 11:24 → ED 11:24 → SUATTDRO 14:06 → 4W 16:59

== ENCOUNTER 2024-02-27 20:53 | Inpatient (IN) ==
[2024-02-27 21:21] LABS: Basophils # (auto) 0.04 K/uL (0.00-0.20); Basophils % (auto) 0.7 %; Eosinophils # (auto) 0.11 K/uL (0.00-0.50); Hematocrit (blood only) 40.1 % (37.0-47.0); Hemoglobin 13.6 g/dl (12.0-16.0); Immature Granulocytes # (auto) 0.01 K/uL (0.01-0.20); Immature Granulocytes % (auto) 0.2 %; Lymphocytes % (auto) 37.6 %; Mean Corpuscular Hgb Conc 33.9 g/dL (32.0-36.0); Mean Corpuscular Volume 88.3 fL (80.0-100.0); Mean Platelet Volume 8.6 fL (9.4-12.4); Monocytes # (auto) 0.31 K/uL (0.11-0.59); Monocytes % (auto) 5.6 %; Neutrophils # (auto) 3.01 K/uL (1.40-6.50); Neutrophils % (auto) 53.9 %; Platelet Count 267 K/uL (130-400); RDW Coefficient of Variation 12.1 % (11.5-14.5); RDW Standard Deviation 39.1 fL (36.4-46.3); Red Blood Count 4.54 M/uL (4.20-5.40); White Blood Count 5.58 K/ul (4.8-10.8)
[2024-02-27] MEDS: OPTIRAY 320 125ml IV ONE (21:25)
[2024-02-27 21:29] LABS: iSTAT Creatinine 0.7 mg/dl (0.6-1.3); iSTAT Hemoglobin 13.9 g/dl (12.0-16.0); iSTAT Ionized Calcium 1.16 mmol/l (1.12-1.32)
[2024-02-27 21:30] LABS: Partial Thromboplastin Time 27 Seconds (21-31); Prothrombin Time 11.3 Seconds (9.0-12.0)
[2024-02-27 21:39] LABS: Albumin Globulin Ratio 1.3 (0.9-2); Albumin Level 4.7 gm/dl (3.4-5.0); BUN Creatinine Ratio 17.8 (10-20); Bilirubin,Total 0.8 mg/dl (0.2-1.0); Calcium 9.7 mg/dl (8.6-10.3); Creatinine Clr Calc Pharmacy 65.1 ml/min; Globulin 3.5 gm/dl (2.5-4.0); Potassium 3.1 mmol/L (3.5-5.1); Total Protein 8.2 gm/dl (6.0-8.3)
[2024-02-27] MEDS: SODIUM CHLORIDE 0.9% 1,000 ML IV SCH (21:40)
[2024-02-27] MEDS: LABETALOL HCL IV 5 MG/ML 20ML IV STA (21:41)
[2024-02-27 21:45] LABS: Troponin I High Sensitivity 6.9 pg/ml (0-14)
--- NOTE | 2024-02-27 21:46 | CT Scan Report ---
Exam(s): CT HEAD Without Contrast EXAM: CT Head Without Intravenous Contrast CLINICAL HISTORY: Reason for exam: neuro deficit, acute stroke suspected. TECHNIQUE: Axial computed tomography images of the head/brain without intravenous contrast. CTDI is 46 mGy and DLP is 1119 mGy-cm. Automated exposure control was utilized for the study. A dose lowering technique was utilized adhering to the principles of ALARA. COMPARISON: No relevant prior studies available. FINDINGS: Brain: Chronic infarcts within the right parietal lobe. Small focus of mineralization within the right centrum semi-ovale measuring 5 mm (series 2 image 17). No hemorrhage or cerebral edema. Ventricles: Unremarkable. Bones/joints: Unremarkable. No fracture. Soft tissues: Unremarkable. Sinuses: No acute sinusitis. Mastoid air cells: Unremarkable as visualized. IMPRESSION: 1. No acute intracranial abnormality. 2. Chronic right parietal infarct. Communications: Call Doctor Stroke Electronically signed by: Elijah Chris MD 02/27/24 21:46 PM
--- NOTE | 2024-02-27 21:49 | CT Scan Report ---
Exam(s): CTA HEAD With Contrast IV Amt: 119 ml optiray 320 EXAM: CT Angiography Head With Intravenous Contrast CLINICAL HISTORY: Reason for exam: neuro deficit, acute stroke suspected. TECHNIQUE: Axial computed tomographic angiography images of the head with intravenous contrast. CTDI is 11.6 mGy and DLP is 1119 mGy-cm. Automated exposure control was utilized for the study. A dose lowering technique was utilized adhering to the principles of ALARA. MIP reconstructed images were created and reviewed. CONTRAST: Patient received 119 ml optiray 320 of IV contrast COMPARISON: No relevant prior studies available. 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 Reconstitution of flow within the cavernous segment. No aneurysm. Right anterior cerebral artery: Unremarkable. No occlusion or significant stenosis. No aneurysm. Right middle cerebral artery: Unremarkable. No occlusion or significant stenosis. No aneurysm. Right posterior cerebral artery: origin of the [employer] on the right. No occlusion or significant stenosis. No aneurysm. Right vertebral artery: Unremarkable as visualized. Left internal carotid artery: No acute findings. Intracranial segment is patent with no significant stenosis. No aneurysm. Left anterior cerebral artery: Unremarkable. No occlusion or significant stenosis. No aneurysm. Left middle cerebral artery: Unremarkable. No occlusion or significant stenosis. No aneurysm. Left posterior cerebral artery: Unremarkable. No occlusion or significant stenosis. No aneurysm. Left vertebral artery: Unremarkable as visualized. Basilar artery: Unremarkable. No occlusion or significant stenosis. No aneurysm. 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 Reconstitution of flow within the cavernous segment. Communications: Call Doctor Stroke Electronically signed by: Elijah Chris MD 02/27/24 21:48 PM
--- NOTE | 2024-02-27 21:52 | CT Scan Report ---
Exam(s): CTA NECK With Contrast IV Amt: 119 ml optiray 320 EXAM: CT Angiography Neck With Intravenous Contrast CLINICAL HISTORY: Reason for exam: neuro deficit, acute stroke suspected. TECHNIQUE: Routine carotid CT angiography protocol was performed with intravenous contrast. NASCET criteria using the distal ICAs for comparison were used for evaluation of stenoses. CTDI is 46 mGy and DLP is 1119 mGy-cm. Automated exposure control was utilized for the study. A dose lowering technique was utilized adhering to the principles of ALARA. MIP reconstructed images were created and reviewed. CONTRAST: Patient received 119 ml optiray 320 of IV contrast COMPARISON: None. FINDINGS: VASCULATURE: Right common carotid artery: Unremarkable. No occlusion or significant stenosis. No dissection. 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 Right vertebral artery: Unremarkable. No occlusion or significant stenosis. No dissection. Left common carotid artery: Unremarkable. No occlusion or significant stenosis. No dissection. Left internal carotid artery: Approximately 50% stenosis within the proximal left ICA. No dissection. Left vertebral artery: Occluded V1 segment of the left vertebral artery. Reconstitution of flow in the V2 segment. Brachiocephalic and subclavian arteries: Short segment focal occlusion of the left subclavian artery where the left vertebral artery originates. NECK: Bones/joints: Unremarkable. No acute fracture. Soft tissues: Unremarkable. Lung apices: Clear. CAROTID STENOSIS REFERENCE USING NASCET CRITERIA: % ICA stenosis = (1 - narrowest ICA diameter/diameter of distal cervical ICA) x 100. Mild - <50% stenosis. Moderate - 50-69% stenosis. Severe - 70-94% stenosis. Near occlusion - 95-99% stenosis. Occluded - 100% stenosis. IMPRESSION: 1. 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 2. 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 3. Occluded V1 segment of the left vertebral artery. Reconstitution of flow in the V2 segment. 4. Approximately 50% stenosis within the proximal left ICA. Communications: Call Doctor Stroke Electronically signed by: Elijah Chris MD 02/27/24 21:51 PM
[2024-02-27] MEDS: POTASSIUM CHLORIDE / WTR 10 MEQ/100 ML PLCT IV ONE (22:03)
[2024-02-27 22:31] LABS: Appearance Urine Clear (Clear); Bacteria Urine Automated None Seen (None Seen); Bilirubin Urine Negative (Negative); Blood Urine Trace (Negative); Cast Urine Automated 0-2 /lpf (0-2); Color Urine Yellow; Epithelial Cell Urine Auto 0-2 /hpf (0-2); Glucose Urine UA Negative (Negative); Ketones Urine Negative (Negative); Leukocyte Esterase Urine Trace (Negative); Nitrite Urine Negative (Negative); Protein Urine Negative (Negative); RBC Urine Automated 0-2 /hpf (0-2); Specific Gravity Urine 1.024 (1.000-1.030); Urobilinogen Urine Negative (Negative); WBC Urine Automated 0-5 /hpf (0-5)
--- NOTE | 2024-02-27 23:22 | History & Physical Report ---
Date of Service February 27, 2024 Assessment & Plan (1) Stroke-like symptoms: Plan: 63yo female with recent ischemic stroke presenting with episode of not feeling well. No new neurological complaints offered. Patient had a CT Head performed in the ER - small area concerning for possibility of petechial hemorrhage. MRI has been obtained which shows expected changes given patient's history of recent and remote CVA. No new hemorrhage. -Admit to PCU -Neuro checks with NIHSS -Maintain blood pressure 120-160mmHg - Labetalol PRN -Seizure precautions -Since no evidence of hemorrhage on MRI can continue ASA, Plavix -Continue Crestor (2) Hypertensive emergency: Plan: Patient with marked elevation of blood pressure upon arrival - possible cause for patient's episodes of not feeling well. 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 Patient was recently admitted to [facility] from 02/15 - 02/18/24 after presenting with acute on chronic left sided weakness. She was found to have an acute to subacute appearing right frontal and parietal-occipital infarcts. Patient was started on Plavix in addition to her home ASA. This evening around 19:00 patient reports "not feeling right". She became very hot and flushed. She went outside to cool down and felt better initially then had recurrence of feeling flushed as well as nausea and generalized weakness. In the ER she had a CT of the head performed which was concerning for possible small area of petechial hemorrhage. Case was discussed with [facility] who recommended admitting the patient to the MICU and obtaining and MRI to assess for possible intracranial bleed. Patient markedly hypertensive with BP 210/108. She was administered IV Labetalol 10mg x 2 doses with improvement in blood pressure. Patient with no complaints at present. No chest pain, palpitations, cough, SOB, no fever or chills, no neurological complaints, no visual disturbance, no headac he, no imbalance She reports missing her medications x 2 days Allergies Allergy/AdvReac Type Severity Reaction Status Date / Time No Known Allergies Allergy Verified 12/05/23 13:02 Home Medications Medication Instructions Recorded Confirmed Type buprenorphine 8 mg-naloxone 2 mg 0 film sublingual TID 04/17/19 02/27/24 History sublingual film (Suboxone) clopidogrel 75 mg tablet 75 mg PO DAILY #90 tabs 06/14/23 02/27/24 Rx aspirin 81 mg tablet,delayed 81 mg PO DAILY 30 days #30 tabs 02/18/24 02/27/24 Rx release rosuvastatin 20 mg tablet 40 mg (2 x 20 mg) PO DAILY 30 days 02/18/24 02/27/24 Rx #60 tabs gabapentin 600 mg tablet 600 mg PO TID PRN Pain #90 tabs 02/21/24 02/27/24 Rx gabapentin 800 mg tablet 800 mg PO HS 02/21/24 02/27/24 History Past Med/Surg History Problem List Stroke-like symptoms (Acute) Hypertensive emergency (Acute) Ischemic stroke Brain fog (Acute) History of cardioembolic cerebrovascular accident (CVA) (Acute) [facility]FP (current) use of 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/antiplatelets (Acute) History of tobacco abuse Stroke-like symptoms Weakness (Acute) Aortic regurgitation mild-moderate 05/2023 echo Prediabetes History of CVA (cerebrovascular accident) Peripheral arterial occlusive disease Right carotid artery occlusion Left arm weakness (Acute) Hypertension (Acute) Hyperlipidemia Status post total left knee replacement Osteoarthritis of left knee History of drug abuse Neuropathy Lumbar radicular syndrome Right rotator cuff tear Hypertension Decreased libido Cigarette smoker [place] of foot Chronic pain of left knee Medical History CVA (cerebral vascular accident) Hx of drug abuse per medical record-prescription pain killers following surgery; stopped using 4 years ago History of anxiety Hx of chest pain "get it 2-3 times per year, found to be from anxiety" Tobacco use 1 pack per day Encounter for pre-operative examination Chronic pain Pneumonia of both lower lobes 04/2022, not hospitalized; resolved. Surgical History History of removal of cyst NECK, FOREHEAD History of arthroscopic knee surgery BL History of laparoscopic cholecystectomy 04/17/19 Grade 1 view, MAC 3, ETT 7. Family History Mother Hypertension Heart disease Father , age 81 of an [place] Hypertension Heart disease Other No family history of adverse response to anesthesia Denies family history of Ovarian cancer Breast cancer Colorectal cancer Social History Smoking Status: Never smoker Tobacco Type: Cigarettes Age Started Using Tobacco: 15; Age Quit Using Tobacco: 62; packs per day: 1; Cigarettes Per Day: 20; Second Hand Exposure: No; Do You Dip or Chew Tobacco: No; Hx Alcohol Use: No Hx Substance Use: No Preferred Language: Polish Communication Ability: Effective Visual Impairment: No Limitations Hearing Ability: Normal Back Shoe Operator Required: No Beliefs That Will Affect Care: None marital status: Current Living Situation: Alone Current Living Situation Comment: Living alone current occupational status: unemployed 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 Feels Safe at Home: Yes Safety Concerns Comment: Patient feels confused, unsteady, and is unable to care for herself Childhood Exposure to Second-Hand Smoke: Yes Diet: regular caffeine: Yes Dental Care, Regularly: No Physical Activity Frequency: Daily Seatbelt Use: always Assistive Devices: None Review of Systems Review of Systems: All systems reviewed & are unremarkable except as noted in HPI & below Physical Exam Physical Exam: General: patient resting comfortably, NAD, non-toxic in appearance, AA&O x 4 Skin: warm, dry, intact, no rashes or lesions HEENT: NC/AT, PERRL, EOMI, anicteric sclera, conjunctiva without injection, external ear normal to inspection and nontender, nares patent, moist mucus membranes, poor dentition, no oropharyngeal lesions, neck supple, trachea midline, no LAD, no thyromegaly, no JVD Heart: +S1/S2, regular, no m/r/g Lungs: equal air entry bilaterally, no rales/rhonchi/wheezes Abd: +BS, soft, NT/ND, no masses/organomegaly/ascites Ext: warm, 2+ pulses in UE/LE bilaterally, no clubbing/cyanosis or edema Neuro: LUE weakness 4/5, otherwise patient with intact CN, intact sensation, intact muscle strength, no facial droop Results & Data Results & Data Vital Signs (Past 12 Hours) Vital Signs Temp Pulse Pulse Resp BP BP Pulse Ox 02/27/24 23:00 66 17 122/75 93 02/27/24 22:53 71 18 151/81 H 93 02/27/24 22:51 70 16 151/81 H 94 02/27/24 22:42 71 14 94 02/27/24 22:38 75 18 169/90 H 97 02/27/24 22:35 169/90 H 02/27/24 22:30 70 26 H 02/27/24 22:29 77 18 171/97 H 97 02/27/24 22:26 171/97 H 02/27/24 22:20 207/109 H 02/27/24 22:18 81 25 H 02/27/24 22:15 198/102 H 02/27/24 22:15 79 18 198/102 H 95 02/27/24 22:10 79 158/111 H 02/27/24 22:09 77 19 98 02/27/24 22:07 76 18 180/97 H 98 02/27/24 22:05 180/97 H 02/27/24 22:00 75 18 188/104 H 95 02/27/24 21:55 181/102 H 02/27/24 21:54 72 19 180/101 H 94 02/27/24 21:54 72 18 180/101 H 94 02/27/24 21:45 77 18 194/119 H 97 02/27/24 21:41 78 183/93 H 02/27/24 21:35 82 18 195/99 H 95 02/27/24 21:33 79 20 183/93 H 93 02/27/24 21:30 80 18 204/98 H 97 02/27/24 21:18 85 18 210/111 H 94 02/27/24 21:07 88 02/27/24 20:58 36.6 C 90 18 221/108 H 96 O2 Del Method 02/27/24 23:00 Room Air 02/27/24 22:53 Room Air 02/27/24 22:51 Room Air 02/27/24 22:42 Room Air 02/27/24 22:38 Room Air 02/27/24 22:35 02/27/24 22:30 02/27/24 22:29 Room Air 02/27/24 22:26 02/27/24 22:20 02/27/24 22:18 02/27/24 22:15 02/27/24 22:15 Room Air 02/27/24 22:10 02/27/24 22:09 Room Air 02/27/24 22:07 Room Air 02/27/24 22:05 02/27/24 22:00 Room Air 02/27/24 21:55 02/27/24 21:54 Room Air 02/27/24 21:54 Room Air 02/27/24 21:45 Room Air 02/27/24 21:41 02/27/24 21:35 Room Air 02/27/24 21:33 Room Air 02/27/24 21:30 Room Air 02/27/24 21:18 Room Air 02/27/24 21:07 02/27/24 20:58 Room Air Laboratory Results Laboratory Results WBC 5.58 K/ul (4.8-10.8) 02/27/24 21:11 RBC 4.54 M/uL (4.20-5.40) 02/27/24 21:11 Hgb 13.6 g/dl (12.0-16.0) 02/27/24 21:11 POC Hgb 13.9 g/dl (12.0-16.0) 02/27/24 21:16 Hct 40.1 % (37.0-47.0) 02/27/24 21:11 POC Hct 41 % (37-47) 02/27/24 21:16 MCV 88.3 fL (80.0-100.0) 02/27/24 21:11 MCH 30.0 pg (25.0-34.0) 02/27/24 21:11 MCHC 33.9 g/dL (32.0-36.0) 02/27/24 21:11 RDW Std Deviation 39.1 fL (36.4-46.3) 02/27/24 21:11 RDW Coeff of Hayley 12.1 % (11.5-14.5) 02/27/24 21:11 Plt Count 267 K/uL (130-400) 02/27/24 21:11 MPV 8.6 fL (9.4-12.4) L 02/27/24 21:11 Immature Gran % (Auto) 0.2 % 02/27/24 21:11 Neut % (Auto) 53.9 % 02/27/24 21:11 Lymph % (Auto) 37.6 % 02/27/24 21:11 Harris % (Auto) 5.6 % 02/27/24 21:11 Eos % (Auto) 2.0 % 02/27/24 21:11 Baso % (Auto) 0.7 % 02/27/24 21:11 Neut # (Auto) 3.01 K/uL (1.40-6.50) 02/27/24 21:11 Lymph # (Auto) 2.10 K/uL (1.20-3.40) 02/27/24 21:11 Harris # (Auto) 0.31 K/uL (0.11-0.59) 02/27/24 21:11 Eos # (Auto) 0.11 K/uL (0.00-0.50) 02/27/24 21:11 Baso # (Auto) 0.04 K/uL (0.00-0.20) 02/27/24 21:11 Immature Gran # (Auto) 0.01 K/uL (0.01-0.20) 02/27/24 21:11 PT 11.3 Seconds (9.0-12.0) 02/27/24 21:11 INR 1.0 (0.9-1.1) 02/27/24 21:11 APTT 27 Seconds (21-31) 02/27/24 21:11 PTT Ratio 1.0 02/27/24 21:11 POC Sodium 141 mmol/L (135-144) 02/27/24 21:16 Sodium 140 mmol/L (136-145) 02/27/24 21:11 POC Potassium 3.0 mmol/L (3.3-5.0) L 02/27/24 21:16 Potassium 3.1 mmol/L (3.5-5.1) L 02/27/24 21:11 POC Chloride 101 mmol/L (101-112) 02/27/24 21:16 Chloride 102 mmol/L (98-107) 02/27/24 21:11 Carbon Dioxide 30 mmol/L (21-32) 02/27/24 21:11 POC Total CO2 27 mmol/L (24-31) 02/27/24 21:16 Anion Gap 8 (3-11) 02/27/24 21:11 POC Anion Gap 17.0 mmol/L (16-25) 02/27/24 21:16 POC BUN 12 mg/dl (7-18) 02/27/24 21:16 BUN 13 mg/dl (6-23) 02/27/24 21:11 Creatinine 0.73 mg/dl (0.6-1.2) 02/27/24 21:11 POC Creatinine 0.7 mg/dl (0.6-1.3) 02/27/24 21:16 Est Cr Clr Drug Dosing 65.1 ml/min 02/27/24 21:11 eGFR 92.35 02/27/24 21:11 BUN/Creatinine Ratio 17.8 (10-20) 02/27/24 21:11 Glucose 111 mg/dl (70-99(Fasting)) H 02/27/24 21:11 POC Glucose 105 mg/dl (70-99) H 02/27/24 21:08 POC Glucose (other) 109 mg/dl (70-99) H 02/27/24 21:16 Calcium 9.7 mg/dl (8.6-10.3) 02/27/24 21:11 POC Ioniz Calcium Jacek 1.16 mmol/l (1.12-1.32) 02/27/24 21:16 Magnesium 2.0 mg/dl (1.7-2.4) 02/27/24 21:11 Total Bilirubin 0.8 mg/dl (0.2-1.0) 02/27/24 21:11 AST 22 U/L (13-39) 02/27/24 21:11 ALT 17 U/L (7-52) 02/27/24 21:11 Alkaline Phosphatase 99 U/L (34-104) 02/27/24 21:11 Troponin I High Sens 6.9 pg/ml (0-14) 02/27/24 21:11 Total Protein 8.2 gm/dl (6.0-8.3) 02/27/24 21:11 Albumin 4.7 gm/dl (3.4-5.0) 02/27/24 21:11 Globulin 3.5 gm/dl (2.5-4.0) 02/27/24 21:11 Albumin/Globulin Ratio 1.3 (0.9-2) 02/27/24 21:11 Urine Color Yellow 02/27/24 21:48 Urine Appearance Clear (Clear) 02/27/24 21:48 Urine pH 8.0 (4.5-7.5) H 02/27/24 21:48 Ur Specific [place] 1.024 (1.000-1.030) 02/27/24 21:48 Urine Protein Negative (Negative) 02/27/24 21:48 Urine Glucose (UA) Negative (Negative) 02/27/24 21:48 Urine Ketones Negative (Negative) 02/27/24 21:48 Urine Blood Trace (Negative) H 02/27/24 21:48 Urine Nitrite Negative (Negative) 02/27/24 21:48 Urine Bilirubin Negative (Negative) 02/27/24 21:48 Urine Urobilinogen Negative (Negative) 02/27/24 21:48 Ur Leukocyte Esterase Trace (Negative) H 02/27/24 21:48 Urine WBC (Auto) 0-5 /hpf (0-5) 02/27/24 21:48 Urine RBC (Auto) 0-2 /hpf (0-2) 02/27/24 21:48 U Hyaline Cast (Auto) 0-2 /lpf (0-2) 02/27/24 21:48 U Epithel Cells (Auto) 0-2 /hpf (0-2) 02/27/24 21:48 Urine Bacteria (Auto) None Seen (None Seen) 02/27/24 21:48 Blood Type O Positive 02/27/24 21:11 Antibody Screen NEGATIVE 02/27/24 21:[address] 02/27/24 21:03 CR Exam(s): CT HEAD Without Contrast EXAM: CT Head Without Intravenous Contrast CLINICAL HISTORY: Reason for exam: neuro deficit, acute stroke suspected. TECHNIQUE: Axial computed tomography images of the head/brain without intravenous contrast. CTDI is 46 mGy and DLP is 1119 mGy-cm. Automated exposure control was utilized for the study. A dose lowering technique was utilized adhering to the principles of ALARA. COMPARISON: No relevant prior studies available. FINDINGS: Brain: Chronic infarcts within the right parietal lobe. Small focus of mineralization within the right centrum semi-ovale measuring 5 mm (series 2 image 17). No hemorrhage or cerebral edema. Ventricles: Unremarkable. Bones/joints: Unremarkable. No fracture. Soft tissues: Unremarkable. Sinuses: No acute sinusitis. Mastoid air cells: Unremarkable as visualized. IMPRESSION: 1. No acute intracranial abnormality. 2. Chronic right parietal infarct. Communications: Call Doctor Stroke Electronically signed by: Elijah Chris MD 02/27/24 21:46 PM Head CTA 02/27/24 21:03 CR Exam(s): CTA HEAD With Contrast IV Amt: 119 ml optiray 320 EXAM: CT Angiography Head With Intravenous Contrast CLINICAL HISTORY: Reason for exam: neuro deficit, acute stroke suspected. TECHNIQUE: Axial computed tomographic angiography images of the head with intravenous contrast. CTDI is 11.6 mGy and DLP is 1119 mGy-cm. Automated exposure control was utilized for the study. A dose lowering technique was utilized adhering to the principles of ALARA. MIP reconstructed images were created and reviewed. CONTRAST: Patient received 119 ml optiray 320 of IV contrast COMPARISON: No relevant prior studies available. 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 Reconstitution of flow within the cavernous segment. No aneurysm. Right anterior cerebral artery: Unremarkable. No occlusion or significant stenosis. No aneurysm. Right middle cerebral artery: Unremarkable. No occlusion or significant stenosis. No aneurysm. Right posterior cerebral artery: origin of the PROJECT MANAGEMENT INTERN on the right. No occlusion or significant stenosis. No aneurysm. Right vertebral artery: Unremarkable as visualized. Left internal carotid artery: No acute findings. Intracranial segment is patent with no significant stenosis. No aneurysm. Left anterior cerebral artery: Unremarkable. No occlusion or significant stenosis. No aneurysm. Left middle cerebral artery: Unremarkable. No occlusion or significant stenosis. No aneurysm. Left posterior cerebral artery: Unremarkable. No occlusion or significant stenosis. No aneurysm. Left vertebral artery: Unremarkable as visualized. Basilar artery: Unremarkable. No occlusion or significant stenosis. No aneurysm. 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 Reconstitution of flow within the cavernous segment. Communications: Call Doctor Stroke Electronically signed by: Elijah Chris MD 02/27/24 21:48 PM Neck CTA 02/27/24 21:03 CR Exam(s): CTA NECK With Contrast IV Amt: 119 ml optiray 320 EXAM: CT Angiography Neck With Intravenous Contrast CLINICAL HISTORY: Reason for exam: neuro deficit, acute stroke suspected. TECHNIQUE: Routine carotid CT angiography protocol was performed with intravenous contrast. NASCET criteria using the distal ICAs for comparison were used for evaluation of stenoses. CTDI is 46 mGy and DLP is 1119 mGy-cm. Automated exposure control was utilized for the study. A dose lowering technique was utilized adhering to the principles of ALARA. MIP reconstructed images were created and reviewed. CONTRAST: Patient received 119 ml optiray 320 of IV contrast COMPARISON: None. FINDINGS: VASCULATURE: Right common carotid artery: Unremarkable. No occlusion or significant stenosis. No dissection. 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 Right vertebral artery: Unremarkable. No occlusion or significant stenosis. No dissection. Left common carotid artery: Unremarkable. No occlusion or significant stenosis. No dissection. Left internal carotid artery: Approximately 50% stenosis within the proximal left ICA. No dissection. Left vertebral artery: Occluded V1 segment of the left vertebral artery. Reconstitution of flow in the V2 segment. Brachiocephalic and subclavian arteries: Short segment focal occlusion of the left subclavian artery where the left vertebral artery originates. NECK: Bones/joints: Unremarkable. No acute fracture. Soft tissues: Unremarkable. Lung apices: Clear. CAROTID STENOSIS REFERENCE USING NASCET CRITERIA: % ICA stenosis = (1 - narrowest ICA diameter/diameter of distal cervical ICA) x 100. Mild - <50% stenosis. Moderate - 50-69% stenosis. Severe - 70-94% stenosis. Near occlusion - 95-99% stenosis. Occluded - 100% stenosis. IMPRESSION: 1. 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 2. 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 3. Occluded V1 segment of the left vertebral artery. Reconstitution of flow in the V2 segment. 4. Approximately 50% stenosis within the proximal left ICA. Communications: Call Doctor Stroke Electronically signed by: Elijah Chris MD 02/27/24 21:51 PM Brain MRI 02/27/24 23:11 Exam(s): MRI HEAD W/WO Contrast IV Amt: 5cc gadavist EXAM: MR Head Without and With Intravenous Contrast CLINICAL HISTORY: Reason for exam: assess for possible petechial hemorrhage. TECHNIQUE: Magnetic resonance images of the head/brain without and with intravenous contrast in multiple planes. CONTRAST: Patient received 5cc gadavist of IV contrast COMPARISON: Prior brain MRI from February 16, 2024. FINDINGS: Brain: There is a late subacute ischemic injury of the right temporal and occipital lobe with gyriform enhancement, without evidence of hemorrhagic transformation. Late subacute ischemic injury of the right frontal lobe with gyriform enhancement. There is a remote ischemic injury of the right frontal and parietal lobes with encephalomalacia and gliosis. Mild nonspecific white matter changes. No mass. No hemorrhage. There is loss of the normal right cavernous ICA concerning for us left lower no blood flow. There remote ischemic injuries of the left cerebellum. Ventricles: Unremarkable. No ventriculomegaly. Bones/joints: Unremarkable. No acute fracture. Sinuses: Unremarkable as visualized. No acute sinusitis. Mastoid air cells: Unremarkable as visualized. No mastoid effusion. Orbits: Unremarkable as visualized. IMPRESSION: No evidence of acute intracranial pathology. Late subacute ischemic injuries of the right frontal, temporal and occipital lobes with gyriform enhancement, without evidence of hemorrhagic transformation. Electronically signed by: Anamika Magana MD 02/28/24 02:02 AM PG Care Time/CCT Total # of Minutes Spent Total Time Spent with Patient: Total time spent is greater than 50% in coordination of care (as documented) at patient's floor/unit and/or counseling patient: Coding Level of Care Code 94657 INT INP/OBS CARE 2/55MIN Diagnoses Stroke-like symptoms R29.90 Hypertensive emergency I16.1
[2024-02-28] MEDS: GADOBUTROL 65ML VIAL IV ONE (00:18)
[2024-02-28] MEDS: GABAPENTIN 800 MG TAB PO STA (00:30)
[2024-02-28] MEDS: LABETALOL HCL IV 5 MG/ML 20ML IV STA (00:32)
--- NOTE | 2024-02-28 01:44 | Emergency Department Note ---
Impression & Plan Hypertensive emergency, Stroke-like symptoms ED Provider Note NAME: LUIS ALBERTO BERUMEN AGE: 63 SEX: Female INFORMANT: Patient ED PROVIDER(S): All Higgins MD CHIEF COMPLAINT: Strokelike symptoms PLAN: Disposition: Admitted Outpatient prescription management: none Referral: None MEDICAL DECISION MAKING: Patient presented because of concerns for strokelike symptoms. Given her history she was made a stroke alert. She was found to have some mild facial droop on the left. She has residual left upper extremity weakness from her old stroke. Given the size of her old stroke patient was felt to be not a candidate for TNK. She was also significantly hypertensive. IV labetalol was ordered and given. CT imaging of the head including CT angiography of the head and neck was performed. Patient does have normalities noted in the carotid but they are unchanged. She has encephalomalacia noted in the right parietal area. Consultation was made with Dr. Lomeli of [facility]. We discussed the case. He did review the patient's images and evaluate the patient via telestroke. He agreed that the patient was not a candidate for TNK due to her recent significant stroke. He felt that the patient may have a punctate petechial hemorrhage noted anterior to the area of encephalomalacia. Recommended MR imaging and noted the patient does not need transfer. He did recommend holding the antiplatelet agents and ICU admission. Target blood pressure was recommended to be 160-170. Patient had 1 dose of labetalol and did improve with that. She did become hypertensive again and a second dose was ordered but not given as the patient's blood pressure did drop. Without any further intervention the patient's blood pressure continued to drop and she had resolution of her symptoms. Facial weakness seemed to be resolved as well. This current issue may be related to her significantly elevated blood pressure. Patient will need further evaluation and management in the hospital. Consultation was made with Dr. Hurt of the [facility] service. Patient was evaluated in the ER for further management. 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 Vital Signs: reviewed and remarkable for severe hypertension Additional History obtained from: none Chronic Medical/Social Conditions affecting care: Prior/ Outside/ External records reviewed: Discharge summary from 02/16/2024 reviewed. Patient had ischemic stroke on the right. Differential Diagnosis: CVA, TIA,Benign hypertension, hypertensive emergency, cardiovascular pathology, toxicologic, pheochromocytoma, electrolyte abnormality, renal disease, endorgan damage, as well as other pathologies. Diagnostics, independently interpreted by me: ECG: Twelve-lead ECG reveals normal sinus rhythm at 87 beats per minute. No evidence of pericarditis, ischemia, ectopy, or dysrhythmia. Cardiac Monitoring: Cardiac monitoring ordered by me: The patient was placed on continuous cardiac monitoring and observed. It revealed a normal sinus rhythm at 62 beats per minute without ectopy or evidence of dysrhythmia. Medical decision rules: none Imaging studies: Chest x-ray. Findings: A chest x-ray was performed and revealed no pneumothorax, effusion, infiltrate, pulmonary edema, free air under the diaphragm, or wide mediastinum. Impression: No acute disease. Head CT reveals large area of encephalomalacia in the right parietal lobe. I refer you to the EMR for further details. HPI: 63 year old Female arrives for evaluation of strokelike symptoms. This started about 2 hours prior to arrival. Patient states she was not feeling well and somewhat lightheaded. She felt flushed. She had generalized weakness. She describes some nausea and blurry vision but denied any vision loss or double vision. She notes recent stroke and discharge from the hospital less than 2 weeks ago. Patient notes she had residual left arm weakness. She does take aspirin and Plavix. Denies any trauma. Upon arrival patient was manage stroke alert. Pt denies LOC, headache, fevers, chills, diaphoresis, neck pain, chest pain, breathing difficulties, vomiting, abdominal pain, back pain, melena, hematochezia, urinary symptoms, numbness, lymphadenopathy, rash, or other complaints. PAST MEDICAL HISTORY: See Below, CVA PAST SURGICAL HISTORY: See Below, SOCIAL HISTORY: See Below, former smoker HOME MEDICATIONS: See Below ALLERGIES: See Below VITALS: See Below PHYSICAL EXAMINATION: GENERAL: Awake, alert, well-appearing, in no distress HENT: Normocephalic, atraumatic. Oropharynx unremarkable. EYES: Normal conjunctiva. Sclera non-icteric. PERRLA. EOMI. NECK: Inspection normal. Non-tender. Supple. No nuchal rigidity. FROM. No masses. RESPIRATORY: Clear to auscultation. No wheezes. No rales. Normal respiratory effort. CARDIAC: Normal rate. Normal rhythm. No murmurs. No rubs. Extremities warm and well perfused. Pulses equal. No JVD. GI: Soft, non-distended. No tenderness to palpation. No rebound or guarding. No masses. RECTAL: Deferred. MUSCULOSKELETAL: Atraumatic. Chest examination reveals no tenderness. The back is symmetrical on inspection without obvious abnormality. There is no CVA tenderness to palpation. No joint edema. LOWER EXTREMITIES: Calves are equal size bilaterally and non-tender. No edema. No discoloration. NEURO: Normal sensorium. No sensory deficits noted. There is residual left upper extremity weakness. No drift in the lower extremities or right upper extremity. Slight drift in the left upper extremity. Patient was noted to have a mild left facial droop present. Cranial nerves II through XII intact otherwise. Speech normal. SKIN: No rash or jaundice noted. PROCEDURES: none CRITICAL CARE: I have personally spent 40 minutes of critical care time in the direct management of this patient. This includes bedside care, interpretation of diagnostic studies, and testing, discussion with consultants, patient, and family members, and other required patient management activities. These minutes are in excess of all separately billable procedures. 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 (Acute) History of tobacco abuse Stroke-like symptoms Weakness (Acute) Aortic regurgitation mild-moderate 05/2023 echo Prediabetes History of CVA (cerebrovascular accident) Peripheral arterial occlusive disease Right carotid artery occlusion Left arm weakness (Acute) Hypertension (Acute) Hyperlipidemia Status post total left knee replacement Osteoarthritis of left knee History of drug abuse Neuropathy Lumbar radicular syndrome Right rotator cuff tear Hypertension Decreased libido Cigarette smoker [place] of foot Chronic pain of left knee Medical History CVA (cerebral vascular accident) Hx of drug abuse per medical record-prescription pain killers following surgery; stopped using 4 years ago History of anxiety Hx of chest pain "get it 2-3 times per year, found to be from anxiety" Tobacco use 1 pack per day Encounter for pre-operative examination Chronic pain Pneumonia of both lower lobes 04/2022, not hospitalized; resolved. Surgical History History of removal of cyst NECK, FOREHEAD History of arthroscopic knee surgery BL History of laparoscopic cholecystectomy 04/17/19 Grade 1 view, MAC 3, ETT 7. Family History Mother Hypertension Heart disease Father , age 81 of an MA Hypertension Heart disease Other No family history of adverse response to anesthesia Denies family history of Ovarian cancer Breast cancer Colorectal cancer Social History Smoking Status: Never smoker Tobacco Type: Cigarettes Age Started Using Tobacco: 15; Age Quit Using Tobacco: 62; packs per day: 1; Cigarettes Per Day: 20; Second Hand Exposure: No; Do You Dip or Chew Tobacco: No; Hx Alcohol Use: No Hx Substance Use: No Preferred Language: Congolese Communication Ability: Effective Visual Impairment: No Limitations Hearing Ability: Normal Surveillance Supervisor Required: No Beliefs That Will Affect Care: None marital status: Current Living Situation: Alone Current Living Situation Comment: Living alone current occupational status: unemployed 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 Feels Safe at Home: Yes Safety Concerns Comment: Patient feels confused, unsteady, and is unable to care for herself Childhood Exposure to Second-Hand Smoke: Yes Diet: regular caffeine: Yes Dental Care, Regularly: No Physical Activity Frequency: Daily Seatbelt Use: always Assistive Devices: None Allergies Allergies Allergy/AdvReac Type Severity Reaction Status Date / Time No Known Allergies Allergy Verified 12/05/23 13:02 Home Meds Home Medications Medication Instructions Recorded Confirmed buprenorphine 8 mg-naloxone 2 mg 0 film sublingual TID 04/17/19 02/27/24 sublingual film (Suboxone) gabapentin 800 mg tablet 800 mg PO HS 02/21/24 02/27/24 Previous Rx's Medication Instructions Recorded clopidogrel 75 mg tablet 75 mg PO DAILY #90 tabs 06/14/23 aspirin 81 mg tablet,delayed 81 mg PO DAILY 30 days #30 tabs 02/18/24 release rosuvastatin 20 mg tablet 40 mg (2 x 20 mg) PO DAILY 30 days 02/18/24 #60 tabs gabapentin 600 mg tablet 600 mg PO TID PRN Pain #90 tabs 02/21/24 Results & Data (ED) Vital Signs Vital Signs - 24 hr 02/27/24 20:58 02/27/24 21:07 02/27/24 21:18 Temperature 36.6 C Temperature Source Temporal Artery Scan Pulse Rate 90 88 Pulse Rate [Apical] 85 Pulse Rate from SpO2 Sensor Respiratory Rate 18 18 Respiratory Effort / Characteristics Non-Labored Spontaneous Non-Labored Spontaneous Respiratory Depth Normal Normal Respiratory Pattern Regular Regular Blood Pressure 221/108 H Blood Pressure [Right Arm] 210/111 H Blood Pressure Mean 145 Blood Pressure Mean [Right Arm] 144 Blood Pressure Position Sitting Pulse Oximetry 96 94 Oxygen Delivery Method Room Air Room Air Sepsis Recent Fever Within 48 Hours No Sepsis New/Unexplained Change in Mental Status N/A Sepsis Action Taken by Nursing No Action Required 02/27/24 21:30 02/27/24 21:33 02/27/24 21:35 Temperature Temperature Source Pulse Rate 79 Pulse Rate [Apical] 80 82 Pulse Rate from SpO2 Sensor 79 Respiratory Rate 18 20 18 Respiratory Effort / Characteristics Non-Labored Spontaneous Non-Labored Spontaneous Respiratory Depth Normal Normal Respiratory Pattern Regular Blood Pressure 183/93 H Blood Pressure [Right Arm] 204/98 H 195/99 H Blood Pressure Mean 123 Blood Pressure Mean [Right Arm] 133 131 Blood Pressure Position Pulse Oximetry 97 93 95 Oxygen Delivery Method Room Air Room Air Room Air Sepsis Recent Fever Within 48 Hours Sepsis New/Unexplained Change in Mental Status Sepsis Action Taken by Nursing 02/27/24 21:41 02/27/24 21:45 02/27/24 21:54 Temperature Temperature Source Pulse Rate 78 Pulse Rate [Apical] 77 72 Pulse Rate from SpO2 Sensor Respiratory Rate 18 18 Respiratory Effort / Characteristics Non-Labored Spontaneous Non-Labored Spontaneous Respiratory Depth Normal Normal Respiratory Pattern Regular Blood Pressure 183/93 H Blood Pressure [Right Arm] 194/119 H 180/101 H Blood Pressure Mean Blood Pressure Mean [Right Arm] 144 127 Blood Pressure Position Pulse Oximetry 97 94 Oxygen Delivery Method Room Air Room Air Sepsis Recent Fever Within 48 Hours Sepsis New/Unexplained Change in Mental Status Sepsis Action Taken by Nursing 02/27/24 21:54 02/27/24 21:55 02/27/24 22:00 Temperature Temperature Source Pulse Rate 72 Pulse Rate [Apical] 75 Pulse Rate from SpO2 Sensor 72 Respiratory Rate 19 18 Respiratory Effort / Characteristics Non-Labored Spontaneous Respiratory Depth Normal Respiratory Pattern Regular Blood Pressure 180/101 H 181/102 H Blood Pressure [Right Arm] 188/104 H Blood Pressure Mean 127 144 Blood Pressure Mean [Right Arm] 132 Blood Pressure Position Pulse Oximetry 94 95 Oxygen Delivery Method Room Air Room Air Sepsis Recent Fever Within 48 Hours Sepsis New/Unexplained Change in Mental Status Sepsis Action Taken by Nursing 02/27/24 22:05 02/27/24 22:07 02/27/24 22:09 Temperature Temperature Source Pulse Rate 77 Pulse Rate [Apical] 76 Pulse Rate from SpO2 Sensor 77 Respiratory Rate 18 19 Respiratory Effort / Characteristics Non-Labored Spontaneous Respiratory Depth Normal Respiratory Pattern Regular Blood Pressure 180/97 H Blood Pressure [Right Arm] 180/97 H Blood Pressure Mean 142 Blood Pressure Mean [Right Arm] 124 Blood Pressure Position Pulse Oximetry 98 98 Oxygen Delivery Method Room Air Room Air Sepsis Recent Fever Within 48 Hours Sepsis New/Unexplained Change in Mental Status Sepsis Action Taken by Nursing 02/27/24 22:10 02/27/24 22:15 02/27/24 22:15 Temperature Temperature Source Pulse Rate 79 Pulse Rate [Apical] 79 Pulse Rate from SpO2 Sensor Respiratory Rate 18 Respiratory Effort / Characteristics Non-Labored Spontaneous Respiratory Depth Normal Respiratory Pattern Blood Pressure 158/111 H 198/102 H Blood Pressure [Right Arm] 198/102 H Blood Pressure Mean 146 Blood Pressure Mean [Right Arm] 134 Blood Pressure Position Pulse Oximetry 95 Oxygen Delivery Method Room Air Sepsis Recent Fever Within 48 Hours Sepsis New/Unexplained Change in Mental Status Sepsis Action Taken by Nursing 02/27/24 22:18 02/27/24 22:20 02/27/24 22:26 Temperature Temperature Source Pulse Rate 81 Pulse Rate [Apical] Pulse Rate from SpO2 Sensor Respiratory Rate 25 H Respiratory Effort / Characteristics Respiratory Depth Respiratory Pattern Blood Pressure 207/109 H 171/97 H Blood Pressure [Right Arm] Blood Pressure Mean 152 128 Blood Pressure Mean [Right Arm] Blood Pressure Position Pulse Oximetry Oxygen Delivery Method Sepsis Recent Fever Within 48 Hours Sepsis New/Unexplained Change in Mental Status Sepsis Action Taken by Nursing 02/27/24 22:29 02/27/24 22:30 02/27/24 22:35 Temperature Temperature Source Pulse Rate 70 Pulse Rate [Apical] 77 Pulse Rate from SpO2 Sensor Respiratory Rate 18 26 H Respiratory Effort / Characteristics Non-Labored Spontaneous Respiratory Depth Normal Respiratory Pattern Regular Blood Pressure 169/90 H Blood Pressure [Right Arm] 171/97 H Blood Pressure Mean 140 Blood Pressure Mean [Right Arm] 121 Blood Pressure Position Pulse Oximetry 97 Oxygen Delivery Method Room Air Sepsis Recent Fever Within 48 Hours Sepsis New/Unexplained Change in Mental Status Sepsis Action Taken by Nursing 02/27/24 22:38 02/27/24 22:42 02/27/24 22:51 Temperature Temperature Source Pulse Rate 71 70 Pulse Rate [Apical] 75 Pulse Rate from SpO2 Sensor 71 Respiratory Rate 18 14 16 Respiratory Effort / Characteristics Non-Labored Spontaneous Respiratory Depth Normal Respiratory Pattern Regular Blood Pressure 151/81 H Blood Pressure [Right Arm] 169/90 H Blood Pressure Mean 127 Blood Pressure Mean [Right Arm] 116 Blood Pressure Position Pulse Oximetry 97 94 94 Oxygen Delivery Method Room Air Room Air Room Air Sepsis Recent Fever Within 48 Hours Sepsis New/Unexplained Change in Mental Status Sepsis Action Taken by Nursing 02/27/24 22:53 02/27/24 23:00 02/28/24 00:30 Temperature Temperature Source Pulse Rate 66 Pulse Rate [Apical] 71 67 Pulse Rate from SpO2 Sensor 66 Respiratory Rate 18 17 17 Respiratory Effort / Characteristics Non-Labored Spontaneous Non-Labored Spontaneous Respiratory Depth Normal Normal Respiratory Pattern Regular Regular Blood Pressure 122/75 Blood Pressure [Right Arm] 151/81 H 148/116 H Blood Pressure Mean 89 Blood Pressure Mean [Right Arm] 104 126 Blood Pressure Position Pulse Oximetry 93 93 95 Oxygen Delivery Method Room Air Room Air Room Air Sepsis Recent Fever Within 48 Hours Sepsis New/Unexplained Change in Mental Status Sepsis Action Taken by Nursing 02/28/24 01:03 Temperature Temperature Source Pulse Rate 61 Pulse Rate [Apical] Pulse Rate from SpO2 Sensor Respiratory Rate Respiratory Effort / Characteristics Respiratory Depth Respiratory Pattern Blood Pressure Blood Pressure [Right Arm] Blood Pressure Mean Blood Pressure Mean [Right Arm] Blood Pressure Position Pulse Oximetry Oxygen Delivery Method Sepsis Recent Fever Within 48 Hours Sepsis New/Unexplained Change in Mental Status Sepsis Action Taken by Nursing Laboratory Data 02/27/24 21:11 02/27/24 21:11 Lab Results 02/27/24 02/27/24 02/27/24 Range/Units 21:08 21:11 21:16 WBC 5.58 (4.8-10.8) K/ul RBC 4.54 (4.20-5.40) M/uL Hgb 13.6 (12.0-16.0) g/dl POC Hgb 13.9 (12.0-16.0) g/dl Hct 40.1 (37.0-47.0) % POC Hct 41 (37-47) % MCV 88.3 (80.0-100.0) fL MCH 30.0 (25.0-34.0) pg MCHC 33.9 (32.0-36.0) g/dL RDW Std Deviation 39.1 (36.4-46.3) fL RDW Coeff of Hayley 12.1 (11.5-14.5) % Plt Count 267 (130-400) K/uL MPV 8.6 L (9.4-12.4) fL Immature Gran % (Auto) 0.2 % Neut % (Auto) 53.9 % Lymph % (Auto) 37.6 % [place] % (Auto) 5.6 % Eos % (Auto) 2.0 % Baso % (Auto) 0.7 % Neut # (Auto) 3.01 (1.40-6.50) K/uL Lymph # (Auto) 2.10 (1.20-3.40) K/uL [place] # (Auto) 0.31 (0.11-0.59) K/uL Eos # (Auto) 0.11 (0.00-0.50) K/uL Baso # (Auto) 0.04 (0.00-0.20) K/uL Immature Gran # (Auto) 0.01 (0.01-0.20) K/uL PT 11.3 (9.0-12.0) Seconds INR 1.0 (0.9-1.1) APTT 27 (21-31) Seconds PTT Ratio 1.0 POC Sodium 141 (135-144) mmol/L Sodium 140 (136-145) mmol/L POC Potassium 3.0 L (3.3-5.0) mmol/L Potassium 3.1 L (3.5-5.1) mmol/L POC Chloride 101 (101-112) mmol/L Chloride 102 (98-107) mmol/L Carbon Dioxide 30 (21-32) mmol/L POC Total CO2 27 (24-31) mmol/L Anion Gap 8 (3-11) POC Anion Gap 17.0 (16-25) mmol/L POC BUN 12 (7-18) mg/dl BUN 13 (6-23) mg/dl Creatinine 0.73 (0.6-1.2) mg/dl POC Creatinine 0.7 (0.6-1.3) mg/dl Est Cr Clr Drug Dosing 65.1 ml/min eGFR 92.35 BUN/Creatinine Ratio 17.8 (10-20) Glucose 111 H (70-99(Fasting)) mg/dl POC Glucose 105 H (70-99) mg/dl POC Glucose (other) 109 H (70-99) mg/dl Calcium 9.7 (8.6-10.3) mg/dl POC Ioniz Calcium Jacek 1.16 (1.12-1.32) mmol/l Magnesium 2.0 (1.7-2.4) mg/dl Total Bilirubin 0.8 (0.2-1.0) mg/dl AST 22 (13-39) U/L ALT 17 (7-52) U/L Alkaline Phosphatase 99 (34-104) U/L Troponin I High Sens 6.9 (0-14) pg/ml Total Protein 8.2 (6.0-8.3) gm/dl Albumin 4.7 (3.4-5.0) gm/dl Globulin 3.5 (2.5-4.0) gm/dl Albumin/Globulin Ratio 1.3 (0.9-2) Urine Color Urine Appearance (Clear) Urine pH (4.5-7.5) Ur Specific [place] (1.000-1.030) Urine Protein (Negative) Urine Glucose (UA) (Negative) Urine Ketones (Negative) Urine Blood (Negative) Urine Nitrite (Negative) Urine Bilirubin (Negative) Urine Urobilinogen (Negative) Ur Leukocyte Esterase (Negative) Urine WBC (Auto) (0-5) /hpf Urine RBC (Auto) (0-2) /hpf U Hyaline Cast (Auto) (0-2) /lpf U Epithel Cells (Auto) (0-2) /hpf Urine Bacteria (Auto) (None Seen) Blood Type O Positive Antibody Screen NEGATIVE 02/27/24 Range/Units 21:48 WBC (4.8-10.8) K/ul RBC (4.20-5.40) M/uL Hgb (12.0-16.0) g/dl POC Hgb (12.0-16.0) g/dl Hct (37.0-47.0) % POC Hct (37-47) % MCV (80.0-100.0) fL MCH (25.0-34.0) pg MCHC (32.0-36.0) g/dL RDW Std Deviation (36.4-46.3) fL RDW Coeff of Hayley (11.5-14.5) % Plt Count (130-400) K/uL MPV (9.4-12.4) fL Immature Gran % (Auto) % Neut % (Auto) % Lymph % (Auto) % [place] % (Auto) % Eos % (Auto) % Baso % (Auto) % Neut # (Auto) (1.40-6.50) K/uL Lymph # (Auto) (1.20-3.40) K/uL [place] # (Auto) (0.11-0.59) K/uL Eos # (Auto) (0.00-0.50) K/uL Baso # (Auto) (0.00-0.20) K/uL Immature Gran # (Auto) (0.01-0.20) K/uL PT (9.0-12.0) Seconds INR (0.9-1.1) APTT (21-31) Seconds PTT Ratio POC Sodium (135-144) mmol/L Sodium (136-145) mmol/L POC Potassium (3.3-5.0) mmol/L Potassium (3.5-5.1) mmol/L POC Chloride (101-112) mmol/L Chloride (98-107) mmol/L Carbon Dioxide (21-32) mmol/L POC Total CO2 (24-31) mmol/L Anion Gap (3-11) POC Anion Gap (16-25) mmol/L POC BUN (7-18) mg/dl BUN (6-23) mg/dl Creatinine (0.6-1.2) mg/dl POC Creatinine (0.6-1.3) mg/dl Est Cr Clr Drug Dosing ml/min eGFR BUN/Creatinine Ratio (10-20) Glucose (70-99(Fasting)) mg/dl POC Glucose (70-99) mg/dl POC Glucose (other) (70-99) mg/dl Calcium (8.6-10.3) mg/dl POC Ioniz Calcium Jacek (1.12-1.32) mmol/l Magnesium (1.7-2.4) mg/dl Total Bilirubin (0.2-1.0) mg/dl AST (13-39) U/L ALT (7-52) U/L Alkaline Phosphatase (34-104) U/L Troponin I High Sens (0-14) pg/ml Total Protein (6.0-8.3) gm/dl Albumin (3.4-5.0) gm/dl Globulin (2.5-4.0) gm/dl Albumin/Globulin Ratio (0.9-2) Urine Color Yellow Urine Appearance Clear (Clear) Urine pH 8.0 H (4.5-7.5) Ur Specific [place] 1.024 (1.000-1.030) Urine Protein Negative (Negative) Urine Glucose (UA) Negative (Negative) Urine Ketones Negative (Negative) Urine Blood Trace H (Negative) Urine Nitrite Negative (Negative) Urine Bilirubin Negative (Negative) Urine Urobilinogen Negative (Negative) Ur Leukocyte Esterase Trace H (Negative) Urine WBC (Auto) 0-5 (0-5) /hpf Urine RBC (Auto) 0-2 (0-2) /hpf U Hyaline Cast (Auto) 0-2 (0-2) /lpf U Epithel Cells (Auto) 0-2 (0-2) /hpf Urine Bacteria (Auto) None Seen (None Seen) Blood Type Antibody Screen Administered Medications Sodium Chloride (Nss) 1,000 mls @ 50 mls/hr IV .Q20H [facility] Stop: 03/28/24 21:14 Last Admin: 02/27/24 21:40 Dose: 50 mls/hr Documented By: GCC Discontinued Medications Gabapentin (Gabapentin 800 Mg Tab) 800 mg PO NOW STA Stop: 02/27/24 23:39 Last Admin: 02/28/24 00:30 Dose: 800 mg Documented By: PAT Gadobutrol (Gadobutrol 65ml Vial) 5 ml IV ONCE ONE Stop: 02/28/24 00:19 Last Admin: 02/28/24 00:18 Dose: 5 ml Documented By: AMINA Potassium Chloride (K Mitch / Wtr) 10 meq in 100 mls @ 100 mls/hr IV ONE ONE Stop: 02/27/24 22:57 Last Infusion: 02/27/24 23:25 Dose: Infused Documented By: Admin: 02/27/24 22:03 Dose: 100 mls/hr Documented By: YUE Ioversol (Optiray 320 125ml) 119 ml IV ONCE ONE Stop: 02/27/24 21:25 Last Admin: 02/27/24 21:25 Dose: 119 ml Documented By: RAYMON Labetalol HCl (Labetalol Hcl Iv 5 Mg/Ml 20ml) 10 mg IV NOW STA Stop: 02/27/24 21:35 Last Admin: 02/27/24 21:41 Dose: 10 mg Documented By: YUE Labetalol HCl (Labetalol Hcl Iv 5 Mg/Ml 20ml) 10 mg IV NOW STA Stop: 02/27/24 22:27 Last Admin: 02/28/24 00:32 Dose: Not Given Documented By: PAT Imaging Data Radiologist's Impression: Head CT 02/27/24 21:03 CR Exam(s): CT HEAD Without Contrast EXAM: CT Head Without Intravenous Contrast CLINICAL HISTORY: Reason for exam: neuro deficit, acute stroke suspected. TECHNIQUE: Axial computed tomography images of the head/brain without intravenous contrast. CTDI is 46 mGy and DLP is 1119 mGy-cm. Automated exposure control was utilized for the study. A dose lowering technique was utilized adhering to the principles of ALARA. COMPARISON: No relevant prior studies available. FINDINGS: Brain: Chronic infarcts within the right parietal lobe. Small focus of mineralization within the right centrum semi-ovale measuring 5 mm (series 2 image 17). No hemorrhage or cerebral edema. Ventricles: Unremarkable. Bones/joints: Unremarkable. No fracture. Soft tissues: Unremarkable. Sinuses: No acute sinusitis. Mastoid air cells: Unremarkable as visualized. IMPRESSION: 1. No acute intracranial abnormality. 2. Chronic right parietal infarct. Communications: Call Doctor Stroke Electronically signed by: Elijah Chris MD 02/27/24 21:46 PM Head CTA 02/27/24 21:03 CR Exam(s): CTA HEAD With Contrast IV Amt: 119 ml optiray 320 EXAM: CT Angiography Head With Intravenous Contrast CLINICAL HISTORY: Reason for exam: neuro deficit, acute stroke suspected. TECHNIQUE: Axial computed tomographic angiography images of the head with intravenous contrast. CTDI is 11.6 mGy and DLP is 1119 mGy-cm. Automated exposure control was utilized for the study. A dose lowering technique was utilized adhering to the principles of ALARA. MIP reconstructed images were created and reviewed. CONTRAST: Patient received 119 ml optiray 320 of IV contrast COMPARISON: No relevant prior studies available. 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 Reconstitution of flow within the cavernous segment. No aneurysm. Right anterior cerebral artery: Unremarkable. No occlusion or significant stenosis. No aneurysm. Right middle cerebral artery: Unremarkable. No occlusion or significant stenosis. No aneurysm. Right posterior cerebral artery: origin of the BEVEL OPERATOR on the right. No occlusion or significant stenosis. No aneurysm. Right vertebral artery: Unremarkable as visualized. Left internal carotid artery: No acute findings. Intracranial segment is patent with no significant stenosis. No aneurysm. Left anterior cerebral artery: Unremarkable. No occlusion or significant stenosis. No aneurysm. Left middle cerebral artery: Unremarkable. No occlusion or significant stenosis. No aneurysm. Left posterior cerebral artery: Unremarkable. No occlusion or significant stenosis. No aneurysm. Left vertebral artery: Unremarkable as visualized. Basilar artery: Unremarkable. No occlusion or significant stenosis. No aneurysm. 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 Reconstitution of flow within the cavernous segment. Communications: Call Doctor Stroke Electronically signed by: Elijah Chris MD 02/27/24 21:48 PM Neck CTA 02/27/24 21:03 CR Exam(s): CTA NECK With Contrast IV Amt: 119 ml optiray 320 EXAM: CT Angiography Neck With Intravenous Contrast CLINICAL HISTORY: Reason for exam: neuro deficit, acute stroke suspected. TECHNIQUE: Routine carotid CT angiography protocol was performed with intravenous contrast. NASCET criteria using the distal ICAs for comparison were used for evaluation of stenoses. CTDI is 46 mGy and DLP is 1119 mGy-cm. Automated exposure control was utilized for the study. A dose lowering technique was utilized adhering to the principles of ALARA. MIP reconstructed images were created and reviewed. CONTRAST: Patient received 119 ml optiray 320 of IV contrast COMPARISON: None. FINDINGS: VASCULATURE: Right common carotid artery: Unremarkable. No occlusion or significant stenosis. No dissection. 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 Right vertebral artery: Unremarkable. No occlusion or significant stenosis. No dissection. Left common carotid artery: Unremarkable. No occlusion or significant stenosis. No dissection. Left internal carotid artery: Approximately 50% stenosis within the proximal left ICA. No dissection. Left vertebral artery: Occluded V1 segment of the left vertebral artery. Reconstitution of flow in the V2 segment. Brachiocephalic and subclavian arteries: Short segment focal occlusion of the left subclavian artery where the left vertebral artery originates. NECK: Bones/joints: Unremarkable. No acute fracture. Soft tissues: Unremarkable. Lung apices: Clear. CAROTID STENOSIS REFERENCE USING NASCET CRITERIA: % ICA stenosis = (1 - narrowest ICA diameter/diameter of distal cervical ICA) x 100. Mild - <50% stenosis. Moderate - 50-69% stenosis. Severe - 70-94% stenosis. Near occlusion - 95-99% stenosis. Occluded - 100% stenosis. IMPRESSION: 1. 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 2. 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 3. Occluded V1 segment of the left vertebral artery. Reconstitution of flow in the V2 segment. 4. Approximately 50% stenosis within the proximal left ICA. Communications: Call Doctor Stroke Electronically signed by: Elijah Chris MD 02/27/24 21:51 PM Discharge Plan Visit Data Chief Complaint: TIA Symptoms Stated Complaint: HOT FLASH, ANXIETY, BLURRY VISION, WEAK/UNBALANCED ED Provider: All Higgins Discharge Problem: Hypertensive emergency, Stroke-like symptoms Forms Stand Alone Forms: [facility] [employer] Prescriptions Prescriptions: No Action gabapentin 800 mg tablet 800 mg PO HS gabapentin 600 mg tablet 600 mg PO TID PRN (Reason: Pain) Qty: 90 3RF clopidogrel 75 mg tablet 75 mg PO DAILY Qty: 90 3RF buprenorphine-naloxone [Suboxone] 8-2 mg film 0 film sublingual TID Rx Instructions: Unable to verify with pharmacy/patient at this date/time. Original Directions: 1 film sublingual TID aspirin 81 mg Tablet,Delayed Release (Dr/Ec) 81 mg PO DAILY 30 Days Qty: 30 0RF rosuvastatin 20 mg Tablet 40 mg PO DAILY 30 Days Qty: 60 0RF Referrals Referrals: Jacquelyn Martinez CRNP [Primary Care Provider] -
--- NOTE | 2024-02-28 02:03 | Magnetic Resonance Report ---
Exam(s): MRI HEAD W/WO Contrast IV Amt: 5cc gadavist EXAM: MR Head Without and With Intravenous Contrast CLINICAL HISTORY: Reason for exam: assess for possible petechial hemorrhage. TECHNIQUE: Magnetic resonance images of the head/brain without and with intravenous contrast in multiple planes. CONTRAST: Patient received 5cc gadavist of IV contrast COMPARISON: Prior brain MRI from February 16, 2024. FINDINGS: Brain: There is a late subacute ischemic injury of the right temporal and occipital lobe with gyriform enhancement, without evidence of hemorrhagic transformation. Late subacute ischemic injury of the right frontal lobe with gyriform enhancement. There is a remote ischemic injury of the right frontal and parietal lobes with encephalomalacia and gliosis. Mild nonspecific white matter changes. No mass. No hemorrhage. There is loss of the normal right cavernous ICA concerning for us left lower no blood flow. There remote ischemic injuries of the left cerebellum. Ventricles: Unremarkable. No ventriculomegaly. Bones/joints: Unremarkable. No acute fracture. Sinuses: Unremarkable as visualized. No acute sinusitis. Mastoid air cells: Unremarkable as visualized. No mastoid effusion. Orbits: Unremarkable as visualized. IMPRESSION: No evidence of acute intracranial pathology. Late subacute ischemic injuries of the right frontal, temporal and occipital lobes with gyriform enhancement, without evidence of hemorrhagic transformation. Electronically signed by: Anamika Magana MD 02/28/24 02:02 AM
[2024-02-28] MEDS ORDERED: PHARMACIST DISCHARGE MED REC CONSULT PRN (03:36)
[2024-02-28] MEDS ORDERED: GABAPENTIN 600 MG TAB PO PRN (03:36)
[2024-02-28] MEDS ORDERED: LABETALOL HCL IV 5 MG/ML 20ML IV PRN (03:36)
--- NOTE | 2024-02-28 06:47 | XRay Report ---
SINGLE VIEW CHEST CLINICAL HISTORY: Neurological deficit. Stroke like symptoms. FINDINGS: An AP, portable, upright chest radiograph is compared to study dated 02/16/2024. Correlation is made with chest CT dated 03/03/2022. The examination is degraded by portable technique and apical lordotic positioning. The heart is enlarged noting atherosclerotic calcification of the thoracic aort a. The pulmonary vasculature is noncongested. Chronic additional thickening is similar to previous. T here is mild bibasilar scarring/atelectasis. The lungs and pleural spaces are otherwise clear. No pne umothorax is seen. The skeletal structures are osteopenic. The bony thorax is grossly intact. IMPRESSION: Cardiomegaly with no active disease in the chest. ACT 112: Negative or not required by law. Electronically signed by: Silvano Castellanos M.D. 02/28/2024 6:46 AM
[2024-02-28 06:55] LABS: BUN Creatinine Ratio 17.3 (10-20); Calcium 9.3 mg/dl (8.6-10.3); Creatinine Clr Calc Pharmacy 125.8 ml/min; Potassium 3.6 mmol/L (3.5-5.1)
--- NOTE | 2024-02-28 07:18 | Electrocardiogram Report ---
Test Reason : Blood Pressure : */* mmHG Vent. Rate : 87 BPM Atrial Rate : 87 BPM P-R Int : 162 ms QRS Dur : 86 ms QT Int : 384 ms P-R-T Axes : 21 21 38 degrees QTcB Int : 462 ms Normal sinus rhythm Normal ECG When compared with ECG of 16-Feb-2024 11:36, No significant change was found Confirmed by Diogo Bernal ([id number]) on 02/28/2024 7:17:58 AM Referred By: Confirmed By: Diogo Bernal
[2024-02-28] MEDS ORDERED: ICU Protocol for HYPERglycemia SCH (07:30)
--- NOTE | 2024-02-28 07:46 | Hospitalist Progress Note ---
Date of Service February 28, 2024 Assessment & Plan (1) Stroke-like symptoms: Plan: 63yo female with recent ischemic stroke presenting with episode of not feeling well. No new neurological complaints offered. Patient had a CT Head performed in the ER - small area concerning for possibility of petechial hemorrhage. MRI has been obtained which shows expected changes given patient's history of recent and remote CVA. No new hemorrhage. -Admit to PCU -Neuro checks with NIHSS -Maintain blood pressure 120-160mmHg - Labetalol PRN -Seizure precautions -Since no evidence of hemorrhage on MRI can continue ASA, Plavix -Continue Crestor (2) Hypertensive emergency: Plan: Patient with marked elevation of blood pressure upon arrival - possible cause for patient's episodes of not feeling well. She feels back to baseline now with more appropriately controlled BP -Continue to monitor - patient is not on any anti-hypertensives Plan History of substance use disorder -Continue Suboxone TID - independently viewed PDMP Chronic Pain -Continue Gabapentin Tobacco use -Smoking cessation counseling -Nicotine patch Admission and Anticipated Discharge Date Admission Date: February 28, 2024 Results & Data Results & Data Vital Signs (Past 12 Hours) Vital Signs Temp Pulse Pulse Resp BP BP Pulse Ox 02/28/24 03:36 57 L 02/28/24 03:36 97.9 F 62 18 148/84 H 97 02/28/24 03:15 02/28/24 01:35 62 17 131/75 94 02/28/24 01:03 61 02/28/24 00:30 67 17 148/116 H 95 02/27/24 23:00 66 17 122/75 93 02/27/24 22:53 71 18 151/81 H 93 02/27/24 22:51 70 16 151/81 H 94 02/27/24 22:42 71 14 94 02/27/24 22:38 75 18 169/90 H 97 02/27/24 22:35 169/90 H 02/27/24 22:30 70 26 H 02/27/24 22:29 77 18 171/97 H 97 02/27/24 22:26 171/97 H 02/27/24 22:20 207/109 H 02/27/24 22:18 81 25 H 02/27/24 22:15 198/102 H 02/27/24 22:15 79 18 198/102 H 95 02/27/24 22:10 79 158/111 H 02/27/24 22:09 77 19 98 02/27/24 22:07 76 18 180/97 H 98 02/27/24 22:05 180/97 H 02/27/24 22:00 75 18 188/104 H 95 02/27/24 21:55 181/102 H 02/27/24 21:54 72 19 180/101 H 94 02/27/24 21:54 72 18 180/101 H 94 02/27/24 21:45 77 18 194/119 H 97 02/27/24 21:41 78 183/93 H 02/27/24 21:35 82 18 195/99 H 95 02/27/24 21:33 79 20 183/93 H 93 02/27/24 21:30 80 18 204/98 H 97 02/27/24 21:18 85 18 210/111 H 94 02/27/24 21:07 88 02/27/24 20:58 97.9 F 90 18 221/108 H 96 O2 Del Method 02/28/24 03:36 02/28/24 03:36 Room Air 02/28/24 03:15 Room Air 02/28/24 01:35 Room Air 02/28/24 01:03 02/28/24 00:30 Room Air 02/27/24 23:00 Room Air 02/27/24 22:53 Room Air 02/27/24 22:51 Room Air 02/27/24 22:42 Room Air 02/27/24 22:38 Room Air 02/27/24 22:35 02/27/24 22:30 02/27/24 22:29 Room Air 02/27/24 22:26 02/27/24 22:20 02/27/24 22:18 02/27/24 22:15 02/27/24 22:15 Room Air 02/27/24 22:10 02/27/24 22:09 Room Air 02/27/24 22:07 Room Air 02/27/24 22:05 02/27/24 22:00 Room Air 02/27/24 21:55 02/27/24 21:54 Room Air 02/27/24 21:54 Room Air 02/27/24 21:45 Room Air 02/27/24 21:41 02/27/24 21:35 Room Air 02/27/24 21:33 Room Air 02/27/24 21:30 Room Air 02/27/24 21:18 Room Air 02/27/24 21:07 02/27/24 20:58 Room Air PG Care Time/CCT Total # of Minutes Spent Total Time Spent with Patient: Total time spent is greater than 50% in coordination of care (as documented) at patient's floor/unit and/or counseling patient: Coding Diagnoses Stroke-like symptoms R29.90 Hypertensive emergency I16.1
[2024-02-28] MEDS: ASPIRIN 81 MG ECTAB PO SCH (09:04)
[2024-02-28] MEDS: ROSUVASTATIN CALCIUM 20 MG TAB PO SCH (09:04)
[2024-02-28] MEDS: CLOPIDOGREL BISULFATE 75 MG TAB PO SCH (09:04)
[2024-02-28] MEDS: BUPRENORPHINE/NALOXONE 8/2 MG TAB SL SCH (09:04)
[2024-02-28 15:24] VITALS: BP 111/68; RESP 18; TEMP 98.6; O2SAT 94
--- NOTE | 2024-02-28 17:01 | Discharge Summary ---
Discharge Summary Date of Service February 28, 2024 Principal Dx & Hospital Course #1 = Principal Diagnosis (1) Stroke-like symptoms: 63yo female with recent ischemic stroke presenting with episode of not feeling well. Consideration of hypertensive urgency exacerbating previous deficits from old CVA. CT Head performed in the ER - small area concerning for possibility of petechial hemorrhage. MRI MRI did not confirm this hemorrhage, expected changes given patient's history of recent and remote CVA. No new hemorrhage. Patient with reinforcement of controlling blood pressure low-salt diet started on amlodipine 5 mg daily. No change in dual antiplatelet therapy Patient continues to follow with [facility] for previous concern for cerebrovascular defect -Continue Crestor (2) Hypertensive emergency: Patient with marked elevation of blood pressure upon arrival - possible cause for patient's episodes of not feeling well. 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 Patient was recently admitted to [facility] from 02/15 - 02/18/24 after presenting with acute on chronic left sided weakness. She was found to have an acute to subacute appearing right frontal and parietal-occipital infarcts. Patient was started on Plavix in addition to her home ASA. This evening around 19:00 patient reports "not feeling right". She became very hot and flushed. She went outside to cool down and felt better initially then had recurrence of feeling flushed as well as nausea and generalized weakness. In the ER she had a CT of the head performed which was concerning for possible small area of petechial hemorrhage. Case was discussed with [facility] who recommended admitting the patient to the MICU and obtaining and MRI to assess for possible intracranial bleed. Patient markedly hypertensive with BP 210/108. She was administered IV Labetalol 10mg x 2 doses with improvement in blood pressure. Patient with no complaints at present. No chest pain, palpitations, cough, SOB, no fever or chills, no neurological complaints, no visual disturbance, no headache, no imbalance She reports missing her medications x 2 days Discharge Exam Awake alert appropriate nonfocal Discharge Plan Discharge Items Patient Disposition: Home - Self-Care Reason For Visit: NEUROLOGIC COMPLAINTS Discharge Diagnosis: stroke like symptoms resolved Activity: Resume your previous activity Non-emergency contact: Primary Care Provider Call non-emergency contact if: your symptoms worsen Follow-up/Referrals: Jacquelyn Martinez CRNP [Primary Care Provider] - 02/29/24 11:00 am (PCP follow up: 02/28 @11pm with Beatris Pathak) Diet: Heart Healthy Addtl Attending Provider Instructions: focus on good control of your blood pressure, avoid salt and caffeine continue your aspirin and plavix and follow up with [facility] 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 Some specific ways to lower your chance of stroke are: * If you are a smoker, now is the time to stop smoking cigarettes * If you are diabetic, improve the control of your blood sugars * Avoid excessive amounts of alcohol * Control high blood pressure * Lose weight if you are overweight * Be sure to lead an active lifestyle * Eat a healthy diet low in salt, cholesterol and fat You should know about other risk factors for stroke that you are unable to control. These include: * Age 55 years or older * Male gender * Certain racial groups: , or / * Family History of Stroke, Mini stroke or Heart Attack * Sickle Cell Disease Follow Up: It is important for you to keep your follow up appointments with your medical provider. Who to Call and When: Medical Emergencies: Call 911 immediately if you experience any of the following warning signs and symptoms of Stroke: * Sudden numbness or weakness of the face, arm or leg, especially on one side of the body * Sudden confusion, trouble speaking or understanding * Sudden trouble seeing in one or both eyes * Sudden trouble walking, dizziness, loss of balance or coordination * Sudden severe headache with no cause Do not delay calling 911 if you experience any warning signs or symptoms of a stroke. Delay in seeking medical attention may affect what treatments can be given to you. . Pending Studies at Discharge: No Stand-Alone Forms: My [facility], Smoking Cessation Medications and DC Order Prescriptions: New amlodipine 5 mg tablet 5 mg PO DAILY Qty: 30 5RF Continued gabapentin 800 mg tablet 800 mg PO HS gabapentin 600 mg tablet 600 mg PO TID PRN (Reason: Pain) Qty: 90 3RF clopidogrel 75 mg tablet 75 mg PO DAILY Qty: 90 3RF buprenorphine-naloxone [Suboxone] 8-2 mg film 0 film sublingual TID Rx Instructions: Unable to verify with pharmacy/patient at this date/time. Original Directions: 1 film sublingual TID aspirin 81 mg Tablet,Delayed Release (Dr/Ec) 81 mg PO DAILY 30 Days Qty: 30 0RF rosuvastatin 20 mg Tablet 40 mg PO DAILY 30 Days Qty: 60 0RF Discharge Orders: Discharge Order (Routine); Ordered 02/28/24 Ordered By: Hussain Parrish Admission Data Admit Date/Time: 02/28/24 02:18 Attending Provider: Hussain Parrish Admit Provider: Mirta Hurt Primary Care Provider: Jacquelyn Martinez Hospital Stay Data Diagnostic Imagining Performed 02/27/24 21:03 CT angio head w con Stat CT angio neck with con Stat CT head/brain wo con Stat 02/27/24 23:11 MRI Brain [MR brain wo/w con] Stat Pending Results Patient Have Any Pending Studies at Discharge: No Discharge Instructions Given to Patient (Per Discharging Provider) focus on good control of your blood pressure, avoid salt and caffeine continue your aspirin and plavix and follow up with [facility] Total Time Total Time Spent Total Time Spent (In Minutes): It required greater than 30 minutes to prepare this patient for discharge. Coding Level of Care Code 37035 INP/OBS DISCH >30 MIN Diagnoses Stroke-like symptoms R29.90 Hypertensive emergency I16.1
[2024-02-28 17:14] VITALS: PULSE 67
[2024-02-28] MEDS ORDERED: GABAPENTIN 800 MG TAB PO SCH (21:00)
== END 2024-02-28 17:14 | disposition home or self-care (01) | DRG 57 ==
LOC: ED 20:53 → SUATTDRO 02-28 02:18 → 2S 02-28 02:18